=== PATIENT | male | born 1945 | race Caucasian/White ===

== ENCOUNTER 2020-04-15 11:53 | Outpatient (CLI) | payer MEDICARE, SELFPAY ==
--- NOTE | ~2020-04-15 | XR_ITS ---
EXAMINATION: XR shoulder LT min 2V DATE: 04/15/2020 12:18 INDICATION: Shoulder pain. TECHNIQUE: 5 views of left shoulder were obtained. COMPARISON: None. FINDINGS: Bone alignment is normal. No fracture. Glenohumeral joint is normal. There is moderate oste oarthritis of acromioclavicular joint. A pacer is noted. IMPRESSION: 1. Moderate osteoarthritis of acromioclavicular joint. Reviewed, dictated and finalized at location A. N AND BOMB INVESTIGATOR
--- NOTE | ~2020-04-15 | XR_ITS ---
EXAMINATION: XR_CERV2-3V_CR EXAM DATE: 04/15/2020 12:18 INDICATION: Right shoulder pain. TECHNIQUE: Cervical spine frontal, lateral, lateral swimmers, and open-mouth odontoid projections. There is no prior study for comparison. FINDINGS: The odontoid process is intact. The lateral masses of C1 line up with C2. There are no acu te fractures identified. There is moderate disc disease at C5-6 and 6-7, mild at the upper cervical levels. Prevertebral soft tissue and pre-dens space are within normal limits. There is at least moderate cervical facet arthropathy and lower cervical uncovertebral joint arthropa thy causing some amount of neural foraminal stenosis. Given that patient has a pacemaker, a CT scan c ould better quantify amount of neural foraminal stenosis if indicated clinically. IMPRESSION: Moderate lower cervical disc disease and at least moderate arthropathy. Reviewed, dictated and finalized at location A. TECHNOLOGY TECHNICIAN IMPRESSION: Moderate lower cervical disc disease and at least moderate arthropa thy.
--- NOTE | ~2020-04-15 | XR_ITS ---
EXAMINATION: XR shoulder RT min 2V DATE: 04/15/2020 12:18 INDICATION: Right shoulder pain. TECHNIQUE: 4 views of right shoulder were obtained. COMPARISON: None. FINDINGS: Bone alignment is normal. No fracture. Glenohumeral joint is normal. There is moderate acro mioclavicular joint osteoarthritis. IMPRESSION: 1. Moderate right acromioclavicular joint osteoarthritis. Reviewed, dictated and finalized at location A. BOX CHECKER
== END 2020-04-15 11:54 | disposition home or self-care (01) ==
LOC: ANHIMG 11:58
PROVIDERS: PCP Internal Medicine; Visit Provider Internal Medicine
DX: G89.29 Other chronic pain (principal); M25.511 Pain in right shoulder; M25.512 Pain in left shoulder; M50.90 Cervical disc disorder, unspecified, unspecified cervical region; M47.812 Spondylosis without myelopathy or radiculopathy, cervical region; M19.012 Primary osteoarthritis, left shoulder; M19.011 Primary osteoarthritis, right shoulder
CPT/HCPCS: 72040; 73030

== ENCOUNTER 2020-06-17 12:09 | Outpatient (CLI) | payer MEDICARE, SELFPAY ==
[2020-06-17 12:34] LABS: Anion Gap 7 mmol/L (8-16); Blood Urea Nitrogen 24 mg/dL (9-20); Calcium 9.7 mg/dL (8.4-10.2); Carbon Dioxide 26 mmol/L (22-30); Chloride 107 mmol/L (98-107); Estimated Glomerular Filt Rate 40; Glucose 95 mg/dL (75-110); Potassium 4.6 mmol/L (3.4-5.0); Sodium 140 mmol/L (137-145)
[2020-06-17 12:42] LABS: NT Pro B Type Natriuretic Pept 1050 pg/mL (5-100)
== END 2020-06-17 12:10 | disposition home or self-care (01) ==
LOC: ANHLAB 12:12
PROVIDERS: PCP Internal Medicine; Visit Provider Internal Medicine
DX: I11.0 Hypertensive heart disease with heart failure (principal); I50.9 Heart failure, unspecified
CPT/HCPCS: 36415; 80048; 83880

== ENCOUNTER 2022-04-06 13:17 | Outpatient (CLI) | payer MEDICARE, SELFPAY ==
--- NOTE | 2022-04-06 20:30 | P.PCNPFT_ITS ---
PFT Procedure Performed PFT Procedure Performed Spirometry with Pre/Post Bronchodilator Plethysmography (Lung Vol) Diffusing Cap (DLCO) Flow Vol Loop PFT Interpretation DOS: 04/06/2022 REQUESTING: Dr. Holland REASON FOR TESTING: Dyspnea PULMONARY FUNCTION TESTS Results are reliable and reproducible. Spirometry: Pre bronchodilator FEV1 is 2.92 L, 90% predicted, normal. Pre- bronchodilator FVC is 3.73 L, 86% predicted, normal. Feet FEV1/FVC ratio 78%, normal. After bronchodilator administration there is no change in FEV1 or FVC. Lung volumes: Total lung capacity is 7.51 L, 101% predicted, normal. Residual volume is 3.60 L, 135% predicted, consistent with mild air trapping. RV/TLC is increased 48% consistent with air trapping. Diffusion: DLCO is 22.9, 89% predicted, normal. DLCO/VA is 4.90, 134%, upper limit normal. Flow volume loop: Normal. IMPRESSION: This study shows normal spirometry, no change after bronchodilator, mild air trapping and normal diffusion. Lack of response to bronchodilator should not preclude use if clinically indicated. Ciara Roach MD
== END 2022-04-06 13:18 | disposition home or self-care (01) ==
LOC: ANHPFT 13:18
PROVIDERS: PCP Internal Medicine; Visit Provider Internal Medicine
DX: R06.02 Shortness of breath (principal); R06.00 Dyspnea, unspecified
CPT/HCPCS: 94060; 94726; 94729

== ENCOUNTER 2022-05-24 00:29 | Day surgery (SDC) | payer MEDICARE, SELFPAY ==
[2022-05-07 14:21] VITALS: BMI 29.2
[2022-05-24 08:03] VITALS: BP 125/97; PULSE 72; RESP 18; TEMP 36.1; O2SAT 97; BMI 28.8
[2022-05-24] MEDS: LACTATED RINGERS 1,000 ML 150 ML IV CONT (08:31)
[2022-05-24 08:33] LABS: Glucose Point of Care 136 mg/dl (65-105)
--- NOTE | 2022-05-24 08:44 | PM.HPGS ---
History of Present Illness History of Present Illness Consent: Risks, benefits, and alternatives have been discussed and questions answered. Patient agrees to proceed with procedure. Chief complaint: dyspepsia,other chest pain, eructation Narrative: Brock March is a 76 year old male Presents for EGD. Patient complains of ongoing belching bloating gas burping and chest pain. He denies any dysphagia. Symptoms have been rather persistent. He recently was started on omeprazole. Over the last 6 months has noticed some improvement. His family history is noncontributory. Patient presents today for EGD. Review of Systems Review of Systems: Review of systems noncontributory. 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 Encounter for Medicare annual wellness exam Encounter for routine adult health examination with abnormal findings Encounter for routine adult health examination without abnormal findings Encounter for special screening examination for neoplasm of prostate Follow up Ganglion cyst Gout Hearing loss Heart failure Hyperlipidemia Hypotension Impingement syndrome of right shoulder Indigestion Non-ischemic cardiomyopathy On care home drug therapy MIRIAN on CPAP Poison fab Polycythemia Prostate cancer screening Second degree AV block Shoulder pain, bilateral SOB (shortness of breath) Systolic heart failure Thyroid nodule URI (upper respiratory infection) Vision changes Visual floaters Vitamin D deficiency Family History Family History Mother Diabetes mellitus Father Family history of lung cancer Social History Social History Smoking status: Never smoker Second hand tobacco smoke exposure: No Alcohol intake: never Lack of Transportation: No Lack of Food: Never True Current Housing: I Have Housing Concerned About Future Housing: No Difficulty Paying Gas/Electric Bills: No Difficulty Paying for Meds: No Currently Unemployed: No Education: Associate Degree Difficulty w/ Childcare or Family Care: No Living arrangements: with family Occupation/Education: retired Gender identity (if verbalized by the patient): Male Spiritual care concerns: No Meds Home Medications and Allergies Home Medications Medication Instructions Recorded Confirmed Type allopurinol 300 mg tablet 300 mg PO DAILY #90 tabs 02/20/20 05/24/22 Rx mecobalamin (vitamin B12) 1,000 1,000 mcg sublingual DAILY 04/15/20 05/24/22 History mcg disintegrating tablet,sublingual eplerenone 25 mg tablet 25 mg PO DAILY 10/29/20 05/24/22 History dapagliflozin 10 mg-metformin ER See Rx Instructions .Route 05/21/21 05/24/22 Rx 1,000 mg tablet,extended release .COMPLEX #90 tabs 24hr (Xigduo XR) glimepiride 2 mg tablet See Rx Instructions .Route 01/05/22 05/24/22 Rx .COMPLEX #90 tabs sacubitril 97 mg-valsartan 103 mg 1 tablet PO BID 03/04/22 05/24/22 History tablet (Entresto) atorvastatin 20 mg tablet 20 mg PO DAILY 03/10/22 05/24/22 History cholecalciferol (vitamin D3) 1,250 1,250 mcg PO WEEKLY #4 caps 03/10/22 05/24/22 Rx mcg (50,000 unit) capsule cholecalciferol (vitamin D3) 50 50 mcg PO DAILY 03/10/22 05/24/22 History mcg (2,000 unit) capsule omeprazole 40 mg capsule,delayed 40 mg PO DAILY PRN Indigestion #90 03/18/22 05/24/22 Rx release caps potassium chloride 10 mEq See Rx Instructions .Route 04/01/22 05/24/22 Rx capsule,extend
--- NOTE | 2022-05-24 08:45 | P.PNAN_ITS ---
Anes - Initial Pre Proc Eval Procedure: Operation Date: 05/24/22 09:30 Proposed Procedures p Esophagogastroduodenoscopy - Eugene Estevez MD Date/Time: 05/24/22 08:45 Surgeon: Eugene Estevez MD Pre Op Diagnosis: dysphagia,dyspepsia,other chest pain, eructation Patient Data Age: 76 Gender: M Height: 1.83 m Weight: 96.5 kg Last Vital Signs Temp 97.0 F L 05/24/22 08:03 Pulse 72 05/24/22 08:03 Resp 18 05/24/22 08:03 BP 125/97 H 05/24/22 08:03 Pulse Ox 97 05/24/22 08:03 O2 Del Method Room Air 05/24/22 08:03 Allergies Allergy/AdvReac Type Severity Reaction Status Date / Time Sulfa (Sulfonamide Allergy Unknown Unknown Verified 05/24/22 08:14 Antibiotics) Home Medications Medication Instructions Recorded Confirmed Type allopurinol 300 mg tablet 300 mg PO DAILY #90 tabs 02/20/20 05/24/22 Rx mecobalamin (vitamin B12) 1,000 1,000 mcg sublingual DAILY 04/15/20 05/24/22 History mcg disintegrating tablet,sublingual eplerenone 25 mg tablet 25 mg PO DAILY 10/29/20 05/24/22 History dapagliflozin 10 mg-metformin ER See Rx Instructions .Route 05/21/21 05/24/22 Rx 1,000 mg tablet,extended release .COMPLEX #90 tabs 24hr (Xigduo XR) glimepiride 2 mg tablet See Rx Instructions .Route 01/05/22 05/24/22 Rx .COMPLEX #90 tabs sacubitril 97 mg-valsartan 103 mg 1 tablet PO BID 03/04/22 05/24/22 History tablet (Entresto) atorvastatin 20 mg tablet 20 mg PO DAILY 03/10/22 05/24/22 History cholecalciferol (vitamin D3) 1,250 1,250 mcg PO WEEKLY #4 caps 03/10/22 05/24/22 Rx mcg (50,000 unit) capsule cholecalciferol (vitamin D3) 50 50 mcg PO DAILY 03/10/22 05/24/22 History mcg (2,000 unit) capsule omeprazole 40 mg capsule,delayed 40 mg PO DAILY PRN Indigestion #90 03/18/22 05/24/22 Rx release caps potassium chloride 10 mEq See Rx Instructions .Route 04/01/22 05/24/22 Rx capsule,extended release .COMPLEX #90 caps carvedilol 25 mg tablet See Rx Instructions .Route 04/19/22 05/24/22 Rx .COMPLEX #180 tabs Laboratory Tests 05/24/22 08:26 POC Capillary Glucose 136 mg/dl H mg/dl (65-105) Patient hx anesthesia problems: none Family hx anesthesia problems: none Results Review: All pre-operative results and documents have been reviewed as part of the pre- operative evaluation. 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
[2022-05-24 09:34] VITALS: BP 134/83; PULSE 65; RESP 22; O2SAT 96
[2022-05-24 09:44] VITALS: BP 126/81; PULSE 64; RESP 20; O2SAT 95
[2022-05-24 09:54] VITALS: BP 148/95; PULSE 60; RESP 22; O2SAT 95
== END 2022-05-24 10:02 | disposition home or self-care (01) ==
PROVIDERS: PCP Internal Medicine; Visit Provider Internal Medicine Gastroenterology
PROC: 0DJ08ZZ Inspection of Upper Intestinal Tract, Via Natural or Artificial Opening Endoscopic (ICD-10-PCS; CPT 43235; principal; 2022-05-24 09:30)
DX: C7A.092 Malignant carcinoid tumor of the stomach (principal); I13.0 Hypertensive heart and chronic kidney disease with heart failure and stage 1 through stage 4 chronic kidney disease, or unspecified chronic kidney disease; I50.20 Unspecified systolic (congestive) heart failure; E11.22 Type 2 diabetes mellitus with diabetic chronic kidney disease; N18.9 Chronic kidney disease, unspecified; I25.10 Atherosclerotic heart disease of native coronary artery without angina pectoris; H35.30 Unspecified macular degeneration; M10.9 Gout, unspecified; I42.8 Other cardiomyopathies; E78.5 Hyperlipidemia, unspecified; G47.33 Obstructive sleep apnea (adult) (pediatric); I44.1 Atrioventricular block, second degree; E55.9 Vitamin D deficiency, unspecified; Z79.84 Long term (current) use of oral hypoglycemic drugs; Z95.0 Presence of cardiac pacemaker; E66.9 Obesity, unspecified; Z68.28 Body mass index [BMI] 28.0-28.9, adult
CPT/HCPCS: 43239; 82948; 87081; 88305; 88342; J2704; J7120

== ENCOUNTER 2022-06-29 10:14 | Outpatient (CLI) | payer MEDICARE, SELFPAY ==
[2022-06-29 10:30] LABS: Basophils Percent Auto 0.4 % (0.2-1.2); Eosinophils Absolute Auto 0.2 K/mm3 (0-0.3); Eosinophils Percent Auto 1.6 % (0-4.4); Hematocrit 53.5 % (42.0-52.0); Hemoglobin 17.5 g/dL (14.0-18.0); Immature Granulocyte Absolute 0.03 K/mm3 (0.00-0.031); Immature Granulocyte Percent A 0.3 % (0-0.5); Lymphocytes Absolute Auto 1.48 K/mm3 (0.9-3.2); Lymphocytes Percent Auto 15.4 % (18.3-44.2); Mean Corpuscular HGB Conc 32.7 g/dl (32-36); Mean Corpuscular Volume 94.9 fl (80-100); Mean Platelet Volume 10.8 fl (7.4-10.4); Monocytes Absolute Auto 0.8 K/mm3 (0.1-0.6); Neutrophils Absolute Auto 7.1 K/mm3 (1.3-6.7); Neutrophils Percent Auto 74.3 % (45.5-73.1); Platelet Count Result 179 k/mm3 (150-375); Red Blood Count 5.64 M/mm3 (4.6-6.20); Red Cell Distribution Width 14.2 % (11.5-14.5); White Blood Count 9.6 K/mm3 (4.5-10.0)
[2022-06-29 12:12] LABS: Alanine Aminotransferase 35 U/L (6-50); Albumin Level 4.2 g/dL (3.5-5.1); Alkaline Phosphatase 55 U/L (38-126); Anion Gap 10 mmol/L (8-16); Aspartate Amino Transferase 39 U/L (17-59); Bilirubin,Total 0.9 mg/dL (0.2-1.3); Blood Urea Nitrogen 18 mg/dL (9-20); Calcium 9.3 mg/dL (8.4-10.2); Carbon Dioxide 28 mmol/L (22-30); Chloride 104 mmol/L (98-107); Estimated Glomerular Filt Rate 49; Glucose 161 mg/dL (65-110); Potassium 3.7 mmol/L (3.4-5.0); Sodium 142 mmol/L (137-145)
[2022-07-09 16:39] LABS: Serotonin 48 ng/mL (56-244)
== END 2022-06-29 10:15 | disposition home or self-care (01) ==
LOC: ANHLAB 10:16
PROVIDERS: PCP Internal Medicine; Visit Provider Internal Medicine Hematology & Oncology
DX: D3A.8 Other benign neuroendocrine tumors (principal)
CPT/HCPCS: 36415; 80053; 84260; 85025; 86316

== ENCOUNTER 2023-06-20 08:22 | Outpatient (CLI) | payer MEDICARE, SELFPAY ==
--- NOTE | ~2023-06-20 | CT_ITS ---
EXAMINATION: CT abdomen pelvis w con DATE: 06/20/2023 08:56 INDICATION: Neuroendocrine tumor. TECHNIQUE: Computed tomography (CT) of the abdomen and pelvis was performed with 100 mL Omnipaque 350 intravenous contrast. Automated exposure control and iterative reconstruction technique were employe d. The dose-length product was 1158.93 mGy-cm. COMPARISON: None. FINDINGS: The visualized portions of the lung bases demonstrate mild atelectasis. No pleural effusion . The heart size is normal. There are coronary artery calcifications. No pericardial effusion. There are pacer wires in the right atrium, right ventricle, and coronary sinus. There are cysts in the live r measuring up to 14 mm. Calcifications in the liver and spleen are consistent with old granulomatous disease. The gallbladder is normal in size. The pancreas is normal. There are masses in the adrenal glands can thinning fat measuring up to 5.7 cm on the left, consistent with myelolipomas. There is co rtical thinning of the kidneys. There are cysts in the kidneys measuring up to 9.3 cm on the right. T here is a 1.7 cm mass in right kidney measuring soft tissue attenuation. There are 3 stones in left k idney measuring up to 6 mm. There is calcified atherosclerosis of the aorta and many of the other art eries. 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 There is a left inguinal hernia conta ining fat. The prostate is moderately enlarged. There are no dilated loops of bowel. The appendix is not visualized. There are no pathologically enlarged lymph nodes. There is no free intraperitoneal fl uid. There are bridging endplate osteophytes at multiple levels in the spine, consistent with diffuse idiopathic skeletal hyperostosis (DISH). There is mild lumbar spondylosis. IMPRESSION: 1. 1.7 cm right kidney mass, which may be a hemorrhagic cyst or less likely renal cell carcinoma. Abd omen CT without and with contrast is recommended. 2. 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 Reviewed, dictated and finalized at location A. IMPRESSION: 1. 1.7 cm right kidney mass, which may be a hemorrhagic cyst or less likely gracia al cell carcinoma. Abdomen CT without and with contrast is recommended. 2. 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
[2023-06-20 08:48] LABS: Estimated Glomerular Filt Rate 39
== END 2023-06-20 08:23 | disposition home or self-care (01) ==
PROVIDERS: PCP Internal Medicine; Visit Provider Internal Medicine Hematology & Oncology
DX: D3A.8 Other benign neuroendocrine tumors (principal)
CPT/HCPCS: 74177; Q9967

== ENCOUNTER 2023-11-30 10:50 | Outpatient (CLI) | payer MEDICARE, SELFPAY ==
--- NOTE | ~2023-11-30 | XR_ITS ---
XR abdomen obstructive series Ordering provider: Ralph Holland MD History: . CONSTIPATION X 1 WK . Comparison: None. FINDINGS: BOWEL: Nonobstructive bowel gas pattern. ORGANOMEGALY: None. SIGNIFICANT PATHOLOGIC CALCIFICATIONS: None. OTHER: No free air is seen under the diaphragm. Bilateral hip osteoarthritic changes. Degenerative spine. IMPRESSION: NO ACUTE ABDOMINAL FINDINGS. Reviewed, dictated and finalized at location A.
== END 2023-11-30 10:51 | disposition home or self-care (01) ==
LOC: ANHIMG 10:53
PROVIDERS: PCP Internal Medicine; Visit Provider Internal Medicine
DX: R10.9 Unspecified abdominal pain (principal); K59.00 Constipation, unspecified
CPT/HCPCS: 74019

== ENCOUNTER 2023-12-26 08:27 | Outpatient (CLI) | payer MEDICARE, SELFPAY ==
--- NOTE | ~2023-12-26 | CT_ITS ---
EXAMINATION: CT abdomen pelvis w con DATE: 12/26/2023 09:01 INDICATION: Neuroendocrine tumor. TECHNIQUE: Computed tomography (CT) of the abdomen and pelvis was performed with 100 mL Omnipaque 350 intravenous contrast. Automated exposure control and iterative reconstruction technique were employe d. The dose-length product was 1145.34 mGy-cm. COMPARISON: CT abdomen and pelvis 06/20/2023 FINDINGS: The visualized portions of the lung bases demonstrate mild atelectasis. A calcified right l sarika nodule is consistent with old granulomatous disease. No pleural effusion. The heart size is lucio l. There are coronary artery calcifications. No pericardial effusion. There are pacer wires in right atrium, right ventricle, and coronary sinus. There are cysts in the liver measuring up to 13 mm. Calc ifications in the liver and spleen are consistent with old granulomas disease. There is cortical thin geena of the kidneys. There are cysts in the kidneys measuring up to 9.5 cm on the right. There is a 1 .7 cm mass of right kidney lower pole measuring soft tissue attenuation. There are 5 mm and 4 mm ston es in left kidney. The prostate is moderately enlarged. There is a left inguinal hernia containing fa t. There are likely changes of right inguinal hernia repair. There are no dilated loops of bowel. The re is a stable 4.0 cm fusiform aneurysm of infrarenal aorta. There are no pathologically enlarged lym ph nodes. There is no free intraperitoneal fluid. There are bridging endplate osteophytes at multiple levels in the spine, consistent with diffuse idiopathic skeletal hyperostosis (DISH). There are a fe w scattered benign bone islands. There is moderate lumbar spondylosis. IMPRESSION: 1. Stable 1.7 cm right kidney mass, which may be a hemorrhagic cyst or less likely renal cell carcino ma. Abdomen CT without and with contrast is recommended. 2. Stable 4.0 cm fusiform aneurysm of infrarenal aorta. Reviewed, dictated and finalized at location A. CTOR OF SOCIAL SERVICES IMPRESSION: 1. Stable 1.7 cm right kidney mass, which may be a hemorrhagic cyst or less lik caden renal cell carcinoma. Abdomen CT without and with contrast is recommended. 2. Stable 4.0 cm fusiform aneurysm of infrarenal aorta.
[2023-12-26 08:52] LABS: Estimated Glomerular Filt Rate 31
== END 2023-12-26 08:28 | disposition home or self-care (01) ==
PROVIDERS: PCP Internal Medicine; Visit Provider Internal Medicine Hematology & Oncology
DX: D3A.8 Other benign neuroendocrine tumors (principal); I71.43 Infrarenal abdominal aortic aneurysm, without rupture
CPT/HCPCS: 74177; Q9967

== ENCOUNTER 2023-12-30 09:45 | Outpatient (CLI) | payer MEDICARE, SELFPAY ==
[2023-12-30 10:04] LABS: Basophils Percent Auto 0.4 % (0.2-1.2); Eosinophils Absolute Auto 0.2 K/mm3 (0-0.3); Eosinophils Percent Auto 2.6 % (0-4.4); Hematocrit 52.5 % (42.0-52.0); Hemoglobin 17.2 g/dL (14.0-18.0); Immature Granulocyte Absolute 0.01 K/mm3 (0.00-0.031); Immature Granulocyte Percent A 0.1 % (0-0.5); Immature Platelet Fraction Pct 6.7 % (0.9-11.2); Lymphocytes Percent Auto 21.5 % (18.3-44.2); Mean Corpuscular HGB Conc 32.8 g/dl (32-36); Mean Corpuscular Hemoglobin 31.1 pg (26-34); Mean Corpuscular Volume 94.9 fl (80-100); Mean Platelet Volume 10.9 fl (7.4-10.4); Monocytes Absolute Auto 0.6 K/mm3 (0.1-0.6); Monocytes Percent Auto 7.8 % (2.6-8.5); Neutrophils Percent Auto 67.6 % (45.5-73.1); Platelet Count Result 137 k/mm3 (150-375); Red Blood Count 5.53 M/mm3 (4.6-6.20); Red Cell Distribution Width 13.3 % (11.5-14.5); White Blood Count 7.4 K/mm3 (4.5-10.0)
[2023-12-30 14:05] LABS: Alanine Aminotransferase 26 U/L (6-50); Albumin Level 3.9 g/dL (3.5-5.1); Alkaline Phosphatase 63 U/L (38-126); Anion Gap 8 mmol/L (4-12); Aspartate Amino Transferase 33 U/L (17-59); Bilirubin,Total 0.8 mg/dL (0.2-1.3); Blood Urea Nitrogen 13 mg/dL (9-20); Carbon Dioxide 26 mmol/L (22-30); Chloride 103 mmol/L (98-107); Estimated Glomerular Filt Rate 42; Glucose 104 mg/dL (65-110); Potassium 4.4 mmol/L (3.4-5.0); Sodium 137 mmol/L (137-145)
[2024-01-03 19:09] LABS: Serotonin 68 ng/mL (56-244)
== END 2023-12-30 09:46 | disposition home or self-care (01) ==
LOC: ANHLAB 09:46
PROVIDERS: PCP Internal Medicine; Visit Provider Internal Medicine Hematology & Oncology
DX: D3A.8 Other benign neuroendocrine tumors (principal)
CPT/HCPCS: 36415; 80053; 84260; 85025; 85055

== ENCOUNTER 2024-01-31 01:36 | Day surgery (SDC) | payer MEDICARE, SELFPAY ==
[2024-01-20 09:13] VITALS: BMI 28.8
[2024-01-31 09:49] VITALS: BP 134/80; PULSE 70; RESP 16; TEMP 36.3; O2SAT 96
--- NOTE | 2024-01-31 09:52 | WPDANESEPPF ---
Anes - Initial Pre Proc Eval Procedure: Operation Date: 01/31/24 11:00 Proposed Procedures p Colonoscopy - Rogelio Strickland MD Date/Time: 01/31/24 09:52 Surgeon: Rogelio Strickland MD Pre Op Diagnosis: Personal hx. colon polyps Patient Data Age: 78 Gender: M Height: 1.83 m Weight: 92.6 kg Last Vital Signs Temp 36.3 C L 01/31/24 09:49 Pulse 70 01/31/24 09:49 Resp 16 01/31/24 09:49 BP 134/80 01/31/24 09:49 Pulse Ox 96 01/31/24 09:49 O2 Del Method Room Air 01/31/24 09:49 Allergies Allergy/AdvReac Type Severity Reaction Status Date / Time Sulfa (Sulfonamide Allergy Unknown Unknown Verified 01/31/24 09:45 Antibiotics) Home Medications ?Medication ?Instructions ?Recorded ?Confirmed ?Type mecobalamin (vitamin B12) 1,000 1,000 mcg sublingual DAILY 04/15/20 01/20/24 History mcg disintegrating tablet,sublingual eplerenone 25 mg tablet 25 mg PO DAILY 10/29/20 01/31/24 History sacubitril 97 mg-valsartan 103 mg 1 tablet PO BID 03/04/22 01/31/24 History tablet (Entresto) cholecalciferol (vitamin D3) 50 50 mcg PO DAILY 03/10/22 01/20/24 History mcg (2,000 unit) capsule omeprazole 40 mg capsule,delayed 40 mg PO DAILY PRN Indigestion #90 04/26/23 01/31/24 Rx release caps carvedilol 25 mg tablet 75 mg (3 x 25 mg) .Route .COMPLEX 07/07/23 01/31/24 Rx #180 tabs solifenacin 10 mg tablet 10 mg PO DAILY 08/25/23 01/31/24 History vericiguat 2.5 mg tablet (Verquvo) 2.5 mg PO DAILY 08/25/23 01/31/24 History potassium chloride 10 mEq See Rx Instructions .Route 10/11/23 01/31/24 Rx capsule,extended release .COMPLEX #90 caps dapagliflozin propaned 10 See Rx Instructions .Route 11/22/23 01/31/24 Rx mg-metformin ER 1,000 mg .COMPLEX #90 tabs tablet,ext rel 24hr (Xigduo XR) atorvastatin 20 mg tablet 20 mg PO DAILY #90 tabs 01/10/24 01/31/24 Rx glimepiride 2 mg tablet See Rx Instructions .Route 01/10/24 01/31/24 Rx .COMPLEX #90 tabs Patient hx anesthesia problems: none Family hx anesthesia problems: none Results Review: All pre-operative results and documents have been reviewed as part of the pre-operative evaluation. 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 CHF (congestive heart failure) Encounter for Medicare annual wellness exam Visual floaters Vision changes Hearing loss Systolic heart failure ASHD (arteriosclerotic heart disease) Non-ischemic cardiomyopathy Prostate cancer screening MIGUEL (dyspnea on exertion) SOB (shortness of breath) Heart failure Hypotension Shoulder pain, bilateral Gout Encounter for special screening examination for neoplasm of prostate Bilateral hearing loss Follow up Thyroid nodule CKD (chronic kidney disease) Second degree AV block Cardiac pacemaker in situ BMI 29.0-29.9,adult Elevated homocysteine Hyperlipidemia URI (upper respiratory infection) DM type 2 (diabetes mellitus, type 2) BMI 28.0-28.9,adult Encounter for routine adult health examination without abnormal findings On termite exterminator drug therapy MIRIAN on CPAP Benign essential hypertension Vitamin D deficiency Family History Family History Mother Diabetes mellitus Father Family history of lung cancer Social History Social History Smoking status: Never smoker Smokeless tobacco user: chewing tobacco Second hand tobacco smoke exposure: No Alcohol intake: never Substance use type: does not use Lack of Transportation: No Lack of Food: Never True Current Housing: I Have Housing Concerned About Future Housing: No Difficulty Paying Gas/Electric Bills: No Difficulty Paying for Meds: No Currently Unemployed: No Education: Associate Degree Difficulty w/ Childcare or Family Care: No Living arrangements: with family Occupation/Education: retired Gender identity (if verbalized by the patient): Male Spiritual care concerns: No Anes - Eval Final PreProcedure Day of Procedure 01/31/24 09:52 Patient weight: overweight Heart: regular rate and rhythm Lungs: clear to auscultation Airway: Mallampati scale class II Neurological: alert and oriented Last oral intake: >/= 8 hours ASA classification: IV Emergent: no Anesthetic plan: proceed Anesthesia type and monitoring: general GIVS and standard monitoring Results Review: All pre-operative results and documents have been reviewed as part of the pre-operative evaluation. Informed Consent: The patient's anesthetic plan and its attendant risks and benefits were discussed with the patient/family/POA. Questions were solicited and answers provided to the satisfaction of the patient/family/POA.
[2024-01-31] MEDS: LACTATED RINGERS 1,000 ML 150 ML IV CONT (10:02)
[2024-01-31 10:03] LABS: Glucose Point of Care 86 mg/dl (65-105)
--- NOTE | 2024-01-31 10:20 | PM.HPGS ---
History of Present Illness History of Present Illness Consent: Risks, benefits, and alternatives have been discussed and questions answered. Patient agrees to proceed with procedure. Chief complaint: Personal hx. 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 Review of Systems Review of Systems: All systems reviewed & are unremarkable except as noted in HPI and below PMFSH Past Medical History Medical History Occult blood in stools Hx of colonic polyps Renal cyst Infrarenal abdominal aortic aneurysm (AAA) without rupture Urinary incontinence Dizziness Indigestion Encounter for routine adult health examination with abnormal findings Polycythemia Poison fab Impingement syndrome of right shoulder Ganglion cyst Abnormal stress test Abnormal EKG Callus of foot 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 CHF (congestive heart failure) Encounter for Medicare annual wellness exam Visual floaters Vision changes Hearing loss Systolic heart failure ASHD (arteriosclerotic heart disease) Non-ischemic cardiomyopathy Prostate cancer screening MIGUEL (dyspnea on exertion) SOB (shortness of breath) Heart failure Hypotension Shoulder pain, bilateral Gout Encounter for special screening examination for neoplasm of prostate Bilateral hearing loss Follow up Thyroid nodule CKD (chronic kidney disease) Second degree AV block Cardiac pacemaker in situ BMI 29.0-29.9,adult Elevated homocysteine Hyperlipidemia URI (upper respiratory infection) DM type 2 (diabetes mellitus, type 2) BMI 28.0-28.9,adult Encounter for routine adult health examination without abnormal findings On intermediate card tender drug therapy MIRIAN on CPAP Benign essential hypertension Vitamin D deficiency Family History Family History Mother Diabetes mellitus Father Family history of lung cancer Social History Social History Smoking status: Never smoker Smokeless tobacco user: chewing tobacco Second hand tobacco smoke exposure: No Alcohol intake: never Substance use type: does not use Lack of Transportation: No Lack of Food: Never True Current Housing: I Have Housing Concerned About Future Housing: No Difficulty Paying Gas/Electric Bills: No Difficulty Paying for Meds: No Currently Unemployed: No Education: Associate Degree Difficulty w/ Childcare or Family Care: No Living arrangements: with family Occupation/Education: retired Gender identity (if verbalized by the patient): Male Spiritual care concerns: No Meds Home Medications and Allergies Home Medications ?Medication ?Instructions ?Recorded ?Confirmed ?Type mecobalamin (vitamin B12) 1,000 1,000 mcg sublingual DAILY 04/15/20 01/20/24 History mcg disintegrating tablet,sublingual eplerenone 25 mg tablet 25 mg PO DAILY 10/29/20 01/31/24 History sacubitril 97 mg-valsartan 103 mg 1 tablet PO BID 03/04/22 01/31/24 History tablet (Entresto) cholecalciferol (vitamin D3) 50 50 mcg PO DAILY 03/10/22 01/20/24 History mcg (2,000 unit) capsule omeprazole 40 mg capsule,delayed 40 mg PO DAILY PRN Indigestion #90 04/26/23 01/31/24 Rx release caps carvedilol 25 mg tablet 75 mg (3 x 25 mg) .Route .COMPLEX 07/07/23 01/31/24 Rx #180 tabs solifenacin 10 mg tablet 10 mg PO DAILY 08/25/23 01/31/24 History vericiguat 2.5 mg tablet (Verquvo) 2.5 mg PO DAILY 08/25/23 01/31/24 History potassium chloride 10 mEq See Rx Instructions .Route 10/11/23 01/31/24 Rx capsule,extended release .COMPLEX #90 caps dapagliflozin propaned 10 See Rx Instructions .Route 11/22/23 01/31/24 Rx mg-metformin ER 1,000 mg .COMPLEX #90 tabs tablet,ext rel 24hr (Xigduo XR) atorvastatin 20 mg tablet 20 mg PO DAILY #90 tabs 01/10/24 01/31/24 Rx glimepiride 2 mg tablet See Rx Instructions .Route 01/10/24 01/31/24 Rx .COMPLEX #90 tabs Allergies Allergy/AdvReac Type Severity Reaction Status Date / Time Sulfa (Sulfonamide Allergy Unknown Unknown Verified 01/31/24 09:45 Antibiotics) Vital Signs Vital Signs - 24 hr 01/31/24 09:49 Temperature 97.3 F L Pulse Rate 70 Respiratory Rate 16 Blood Pressure 134/80 Pulse Oximetry 96 Oxygen Delivery Room Air Exam Const: General: comfortable and no acute distress HENMT: Face/Nose/Sinus: Normal nares present Eyes: General: appearance normal, both eyes and all related structures Neck: Neck: no JVD Resp: Auscultation: clear to auscultation bilaterally Cardio: Rate: regular rate Rhythm: regular rhythm GI: Inspection: non-distended GI Palp: Yes Soft to palpation Skin: General skin exam: normal color Neuro: General: gait normal Speech: normal speech Extrem: General: normal to inspection Psych: Mental Status: mental status grossly normal Assessment and Plan Assessment and plan (1) Hx of colonic polyps: Code(s): Z86.010 - Personal history of colon polyps Status: Acute Assessment and Plan: colonoscopy (2) Occult blood in stools: Code(s): R19.5 - Other fecal abnormalities Status: Acute
[2024-01-31 10:34] VITALS: BP 131/81; PULSE 70; RESP 25; O2SAT 94
[2024-01-31 10:42] VITALS: BP 133/79; PULSE 70; RESP 20; O2SAT 95
[2024-01-31 10:52] VITALS: BP 134/80; PULSE 70; RESP 19; O2SAT 98
== END 2024-01-31 11:15 | disposition home or self-care (01) ==
PROVIDERS: PCP Internal Medicine; Visit Provider Internal Medicine Gastroenterology
PROC: 0DJD8ZZ Inspection of Lower Intestinal Tract, Via Natural or Artificial Opening Endoscopic (ICD-10-PCS; CPT 45378; principal; 2024-01-31 11:00)
DX: D12.2 Benign neoplasm of ascending colon (principal); D12.3 Benign neoplasm of transverse colon; D12.5 Benign neoplasm of sigmoid colon; K64.4 Residual hemorrhoidal skin tags; K64.8 Other hemorrhoids; E78.5 Hyperlipidemia, unspecified; E11.22 Type 2 diabetes mellitus with diabetic chronic kidney disease; I12.9 Hypertensive chronic kidney disease with stage 1 through stage 4 chronic kidney disease, or unspecified chronic kidney disease; N18.9 Chronic kidney disease, unspecified; E55.9 Vitamin D deficiency, unspecified; R32 Unspecified urinary incontinence; D75.1 Secondary polycythemia; I50.20 Unspecified systolic (congestive) heart failure; I25.10 Atherosclerotic heart disease of native coronary artery without angina pectoris; I42.8 Other cardiomyopathies; I44.1 Atrioventricular block, second degree; I95.9 Hypotension, unspecified; G47.33 Obstructive sleep apnea (adult) (pediatric); F17.220 Nicotine dependence, chewing tobacco, uncomplicated; Z79.899 Other long term (current) drug therapy; Z79.84 Long term (current) use of oral hypoglycemic drugs; Z99.89 Dependence on other enabling machines and devices; Z98.890 Other specified postprocedural states; Z95.0 Presence of cardiac pacemaker; Z80.1 Family history of malignant neoplasm of trachea, bronchus and lung
CPT/HCPCS: 45385; 82948; 88305; J2704; J7120

== ENCOUNTER 2024-04-10 09:36 | Outpatient (CLI) | payer MEDICARE, SELFPAY ==
[2024-04-10 09:57] LABS: Basophils Percent Auto 0.4 % (0.2-1.2); Eosinophils Absolute Auto 0.1 K/mm3 (0-0.3); Eosinophils Percent Auto 1.4 % (0-4.4); Hematocrit 52.4 % (42.0-52.0); Hemoglobin 17.2 g/dL (14.0-18.0); Immature Granulocyte Absolute 0.03 K/mm3 (0.00-0.031); Immature Granulocyte Percent A 0.3 % (0-0.5); Lymphocytes Absolute Auto 1.48 K/mm3 (0.9-3.2); Lymphocytes Percent Auto 16.5 % (18.3-44.2); Mean Corpuscular HGB Conc 32.8 g/dl (32-36); Mean Corpuscular Hemoglobin 30.8 pg (26-34); Mean Corpuscular Volume 93.9 fl (80-100); Mean Platelet Volume 10.5 fl (7.4-10.4); Monocytes Absolute Auto 0.8 K/mm3 (0.1-0.6); Monocytes Percent Auto 8.6 % (2.6-8.5); Neutrophils Absolute Auto 6.5 K/mm3 (1.3-6.7); Neutrophils Percent Auto 72.8 % (45.5-73.1); Platelet Count Result 153 k/mm3 (150-375); Red Blood Count 5.58 M/mm3 (4.6-6.20); Red Cell Distribution Width 13.5 % (11.5-14.5)
--- OUTSIDE RECORDS SUMMARY | 2024-04-10 10:42 | XMS_ITS | Clinical Summary ---
Author Organization [facility] Address [address] [place] [address] Care Team Providers Care Adult Family Home Program Manager Name Role Phone Ralph Holland MD Primary Care Provider [phone] Miscellaneous, Not In File Unavailable Unava ilable Allergies Active Allergy Reactions Criticality Noted Date Comments Sulfa (Sulfonamide Antibiotics) Fever Medium 12/08/2021 Patient states he has fever, chills and sweating with sulfa drugs Sulfasalazine Other (See comments) Low 08/29/2015 Fever and hot flashes Medications allopurinol (ZYLOPRIM) 300 mg tablet Take 1 tablet (300 mg total) by mouth daily 5 8 Active POTASSIUM CHLORIDE ER 10 mEq CR capsule Take 1 tablet/capsule (10 mEq total) by mouth daily 0 8 Active glimepiride (AMARYL) 2 mg tablet Take 1 tablet (2 mg total) by mouth daily before breakfast 0 9 Active cholecalciferol (VITAMIN D-3) 25 mcg (1,000 unit) tablet Take 2 tablets (2,000 Units total) by mouth daily Active cyanocobalamin (Vitamin B-12) 1,000 mcg tabletIndicatio ns:Prevention of Vitamin B12 Deficiency Take 1 tablet (1,000 mcg total) by mouth daily Active vnvxc-2-ppf-epa -dpa-fish oil 1,050-1,200 mg capsule 1 capsule Active omeprazole (PriLOSEC) 40 mg capsule Take 1 capsule (40 mg total) by mouth daily as needed Active traZODone (DESYREL) 50 mg tablet Take 1 tablet (50 mg total) by mouth nightly as needed Active atorvastatin (LIPITOR) 40 mg tablet TAKE 1 TABLET(40 MG) BY MOUTH DAILY 30 tablet 11 2 Active Xigduo XR 10-1,000 mg tablet, IR & ER, biphasic 24hr Take 1 tablet by mouth daily 2 Active carvediloL (COREG) 25 mg tablet Take 1.5 tablets (37.5 mg total) by mouth 2 (two) times a day with meals 270 tablet 3 4 06/21/19 25 Active Entresto 97-103 mg tablet TAKE 1 TABLET BY MOUTH TWICE DAILY 180 tablet 5 4 Active solifenacin (VESIcare) 10 mg tablet Take 1 tablet (10 mg total) by mouth daily 4 Active Verquvo 2.5 mg tablet TAKE 1 TABLET(2.5 MG) BY MOUTH DAILY 30 tablet 3 4 Active eplerenone (INSPRA) 25 mg tablet TAKE 1 TABLET(25 MG) BY MOUTH DAILY 90 tablet 2 4 Active Active Problems Problem Noted Date Diagnosed Date ICD (implantable cardioverte r-defibrillator), biventricular, in situ 08/19/2020 Overview (12/20/2022): Cohn [place] BI-V ICD imp on 08/19/20 for NICM. (Lenard Leong. Scooter Trujillo. [facility]. BIO RA Lead Solia [id number] 06/19/19 SJM RV Lead [id number] SJM LV Lead [id number] 08/19/20 Cardiomyopathy 08/19/2020 Chronic systolic congestive heart failure (CMS/H CC) 05/01/2020 Overview (05/01/2020): Moderate on echo 07 December 2019. Assessment & Plan (05/01/2020 1:58 PM CDT): We discussed echo findings from last year. Already on Coreg and ARB. We talked about adding GRADY-inhibitor or Entresto but apparently he has chronic renal insufficiency with a serum creatinine of 1.9.. Thus, I will not make changes in that regard. I will add spironolactone 25 mg p.o. daily. A BMP in 1 week. I advised him to follow-up with teacher of family and consumer science. We discussed life vest and he is agreeable. Pacemaker 11/28/2019 Cardiomyopathy, idiopathic 05/23/2019 Essential hypertension 05/23/2019 MIRIAN on CPAP 05/23/2019 Chest discomfort 05/23/2019 Bradycardia 05/23/2019 Overview (06/21/2019): With heart rate down to the 20s and 30s with 4 second pause. Monitoring also showed second-degree AV block type 1, second-degree AV block type 2 and a brief episode of complete heart block. Status post Biotronik Edora 8 DRT on 19 Jun 2019. Assessment & Plan (05/01/2020 1:57 PM CDT): We discussed today's pacemaker rep check. He is pacing in the mid to high 90s. May require upgrade to biventricular ICD in the near future. Otherwise numbers good with a chronically high ventricular threshold. This is stable. Assessment & Plan (06/26/2019 11:27 AM CDT): Patient feels fine since pacemaker implantation. No fever. No wound drainage. Not much pain in the pocket site. I advised that he follows up with Dr. Weathers in November 2019 as already scheduled. Primary osteoarthritis of right knee 04/14/2017 Encounters Date Type Department Care Team Description 03/11/2024 7:15 AM METAL TEMPERER Ancillary Procedure [facility]ia [facility] [address] [address] ICD (implantable cardioverter-defibril lator), biventricular, in situ (Primary Dx); NICM (nonischemic cardiomyopathy) (CMS/HCC) (HCC) from Last 3 Months Immunizations Immunization Administration Dates Next Due Influenza, Quadrivalent, Hig h Dose, Preservative Free, Intrr 12/02/2020,01/02/2020 Influenza, Trivalent, High D ose, Split, Preservative Free, Intramuscular 12/08/2018 Pfizer SARS-CoV-2 Monovalent Vaccination (12+ Yrs) PURPLE 05/04/2020,04/13/2020 Surgical History Surgery Date Site/Laterality Comments HERNIA REPAIR THYROIDECTOMY partial CARDIAC PACEMAKER PLACEMENT Biotronik UPPER GASTROINTESTINAL ENDOSCOPY COLONOSCOPY Medical History Medical History Date Comments Hypertension Kidney stone Gout GERD (gastroesophageal reflux disease) Type 2 diabetes mellitus (HCC) Sleep apnea CPAP Cardiomyopathy (HCC) CHF (congestive heart failur e) (CMS/HCC) (HCC) Arrhythmia HX AV block, 2 d egree T 2, Complete Heart Block, s/p pacemaker Personal history of other me dical treatment Life Vest external defibrill ator Colon polyp Neuroendocrine tumor duodenum Heart disease Family History Medical History Relation Name Comments Lung cancer Father Brain Tumor Mother inoperable Cancer Son Diabetes Son Gout Son Hypertension Son Relation Name Status Comments Father (Age 76) Mother (Age 80) Son Social History Tobacco Use Types Packs/Day Years Used Date Smoking Tobacco: Never Smokeless Tobacco: Former Alcohol Use Standard Drinks/Week Comments Yes 0 (1 standard drink = 0.6 oz pur e alcohol) AUDIT-C Answer Date Recorded Q1: How often do you have a drink containing alc ohol? Never 06/15/2022 Average Number of Drinks Not on file 023 Frequency of Binge Drinking Not on file 03/2022 Personal Safety Answer Date Recorded Getting School Help Needed Not on file 06/15 Sex and Gender Information Value Date Recorded Sex Assigned at Not on file Legal Sex Male 11:12 AM METAL TEMPERER Gender Identity Male 08/06/2020 10:27 AM CDT Sexual Orientation Not on file Obstetrics History Last Filed Vital Signs Vital Sign Reading Time Taken Comments Blood Pressure 126/80 10/12/2023 9:50 AM CDT Pulse 70 10/12/2023 9:50 AM CDT Temperature 36 C (96.8 F) 06/15/2022 10:33 AM CDT Respiratory Rate 17 06/15/2022 11:33 AM CDT Oxygen Saturation 96% 10/12/2023 9:50 AM CDT Inhaled Oxygen Concentration - - Weight 98.4 kg (217 lb) 10/12/2023 9:50 AM CDT Height 182.9 cm (6') 10/12/2023 9:50 AM CDT Body Mass Index 29.43 10/12/2023 9:50 AM CDT Plan of Treatment Health Maintenance Due Date Last Done Comments Depression Screening 1945 Hepatitis C Screening 1945 DTaP/Tdap/Td Vaccine (1 - Tdap) 1957 Hepatitis B Screening 1964 Zoster Vaccine (1 of 2) 1996 Well Visit 65+ 06/06/2011 Pneumococcal vaccine 65+ (2 of 2 - PCV) 11/15/2015 11/14/2014 Fall Risk Assessment 06/16/2023 06/15/2022 Covid-19 Vaccine (3 - 2023-2 5 season) 2023 05/04/2020, 04/13/2020 Influenza Vaccine (#1) 2023 , 01/02/2020, 12/08/2018, Additional history exists Medical Devices Implanted Type Area Perforator Device Identifier Shelf Expiration Date Model / Serial / Lot Cohn Vascular [id number] Defib Cardiac [id number] [place] Hf Df4 Is-4 Is-1 Cnctr - [id number] - [id number] Implanted:Qty: 1 on 08/19/2020 by Ildefonso Bridges MD at [facility] ICD Cohn Vascular [id number] 08/13/2022 C [id number] / [id number] / [employer] 7121q/65 Durata Sj4 7fr 65cm 2 Coil True Bipolar Cardioverter - [id number] - [id number] Implanted:Qty: 1 on 08/19/2020 by Ildefonso Bridges MD at [facility] Lead [employer] [id number] 03/16/2021 7121Q/65 / [id number] / [employer] 1458ql/86 Quartet 4.7fr 86cm Quadripolar Is-4 Llll Connector 16 Curve Low - [id number] - [id number] Implanted:Qty: 1 on 08/19/2020 by Ildefonso Bridges MD at [facility] Lead [employer] [id number] 05/15/2023 1458QL/86 / [id number] / Biotronik Inc [id number] Endocardial Pacing Lead Promri Solia T 60 - [id number] Implanted:Qty: 1 on 06/19/2019 by Tanmay Polanco MD at [facility] Biotronik Inc 06/18/2020 [id number] 81 / / Biotronik Inc [id number] Endocardial Pacing Lead Promri Vielkaia Jt 53 - [id number] Implanted:Qty: 1 on 06/19/2019 by Tanmay Polanco MD at [facility] Biotronik Inc 06/18/2020 [id number] 34 / / Medtronic Inc [id number] Tyrx 3.3x2.9in Large Envelope Absorbable Polyarylate Minocycline - [id number] Implanted:Qty: 1 on 06/19/2019 by Tanmay Polanco MD at [facility] Med[employer]onic Inc 12/20/2019 CMRM 6133 / / [employer] Jose [id number] Device Closure Angio-Seal Vip Bondek-Plus Polyglyd L70 Cm Od6 Fr Odsec.035 In Vascular - [id number] Implanted:Qty: 1 on 07/31/2020 by Candelario Trujillo MD at [facility] [id number] / / Explanted Type Area Perforator Device Identifier Shelf Expiration Date Model / Serial / Lot Biotronik Inc [id number] Edora Promri [id number] 1 Chamber Rate Adaptive Unipolar Bipolar - [id number] Implanted:Qty: 1 on 06/19/2019 by Tanmay Polanco MD at [facility] Explanted:Qty: 1 on 08/19/2020 by Ildefonso Bridges MD at [facility] Biotronik Inc 06/18/2020 [id number] / / Procedures Procedure Name Priority Date/Time Associated Diagnosis Comments DEVICE CHECK - REMOTE Routine 03/11/2024 10:07 AM METAL TEMPERER NICM (nonischemic cardiomyopathy) (CMS/HCC) (HCC) from Last 3 Months Results * DEVICE CHECK - REMOTE (03/11/2024 10:07 AM METAL TEMPERER) Anatomical Region Laterality Modality Other Narrative 03/15/2024 7:58 AM METAL TEMPERER Table formatting from the original result was not included. BiV ICD CHECK (REMOTE) Patient ID: Za Villatoro is a 78 y.o. male. This patient received a Cohn BiV ICD. They had a routine remote transmission on 03/11/2024 Device implant indications: Nonischemic dilated cardiomyopathy Interrogation of the patient's device demonstrates the following: Presenting EGM: A paced Bi V paced @ 70 bpm Original Device Settings Right Atrium Right Ventricle Left Ventricle Sensitivity (mV) 0.5 mV Auto mV N/A mV Pacing Outputs 5.0 V @ 1.0 ms 1.5 V @ 0.5 ms 1.5 V @ 1.0 ms Testing Measurements Right Atrium Right Ventricle Left Ventricle Sensitivity (mV) 1.6 mV 11.6 mV Not done mV Impedence (Ohms) 850 ohms 740 ohms 1050 ohms Pace Threshold Not done V @ ms 0.5 V @ 0.5 ms Not done V @ ms Pacing % 89 % 94 % 94 % HV Lead Impedance N/A 58 ohms N/A Battery Status: 2.4 years to MELANIA, charge time 9.1 seconds. Episodes last 90 days/Comments: AF [place] 0 %,longest duration 0. There were no treated ventricular arrhythmias noted on today's remote interrogation. NORMAL DEVICE FUNCTION PROGRAMMED MEDICATIONS: Anti-coagulant(s): None Anti-arrhythmic(s): Coreg 25 mg twice daily PLAN: 1) Cohn BiV ICD evaluation 2) Cohn remote transmission scheduled in 3 months. 3) Programming appropriate for device settings Winston Jensen, RN Jamal Miller III, MD [facility] PROCEDURES Final Result from Last 3 Months Insurance MEDICARE SOLUTIONS MEDICARE SOLUTIONS Advance Directives For more information, please contact: [phone] * Full Code (Latest Code Status on File) Date Activated Date Inactivated Comments 06/15/2022 8:47 AM 06/15/2022 3:47 PM * Full Code Date Activated Date Inactivated Comments 08/19/2020 8:56 PM 08/20/2020 3:19 PM Care Teams Adult Family Home Program Manager Relationship Specialty Start Date End Date Ralph Holland MD [address] [place] [address] PCP - General Internal Medicine 04/14/17 Miscellaneous, Not In File 08/19/20
--- OUTSIDE RECORDS SUMMARY | 2024-04-10 10:42 | XMS_ITS | Referral Summary ---
Author Organization [facility] Building [facility] Address [address] [place] [address] Care Team Providers Care Liner Helper Name Role Phone Ralph Holland MD Primary Care Provider [phone] Miscellaneous, Not In File Unavailable Unava ilable Encounters Date Type Department Care Team Description 03/11/2024 7:15 AM ASSOCIATE DIRECTOR QA Ancillary Procedure Ar[facility]ia Center [address] [address] ICD (implantable cardioverter-defibril lator), biventricular, in situ (Primary Dx); NICM (nonischemic cardiomyopathy) (CMS/HCC) (HCC) from Last 3 Months Allergies Active Allergy Reactions Criticality Noted Date [...] (1,000 mcg total) by mouth daily Active shjmp-6-uix-epa -dpa-fish oil 1,050-1,200 mg capsule 1 capsule [...] r-defibrillator), biventricular, in situ 08/19/2020 Overview (12/20/2022): Lalit Da Silva BI-V ICD imp on 08/19/20 for NICM. (Lenard Leong. Scooter Trujillo. [facility]. BIO RA Lead Solia [id number] 06/19/19 SJM RV Lead [id number] SJM LV Lead [id number] 08/19/20 Cardiomyopathy 08/19/2020 Chronic systolic congestive heart [...] week. I advised him to follow-up with drywall taper helper. We discussed life vest and he is [...] scheduled. Primary osteoarthritis of right knee 04/14/2017 Immunizations Immunization Administration Dates Next Due Influenza, Quadrivalent, Hig h Dose, Preservative Free, Intrr 12/02/2020,01/02/2020 Influenza, Trivalent, High D ose, Split, Preservative Free, Intramuscular 12/08/2018 Pfizer SARS-CoV-2 Monovalent Vaccination (12+ Yrs) PURPLE 05/04/2020,04/13/2020 Social History Tobacco Use Types Packs/Day Years [...] on file Legal Sex Male 11:12 AM ASSOCIATE DIRECTOR QA Gender Identity Male 08/06/2020 10:27 AM CDT Sexual Orientation Not on file Last Filed Vital Signs Vital Sign Reading [...] 10/12/2023 9:50 AM CDT Plan of Treatment Not on file Medical Devices Implanted Type Area Sensor Operator Device Identifier Shelf Expiration Date Model / Serial / Lot Cohn Vascular [id number] Defib Cardiac [id number] [place] Hf Df4 Is-4 Is-1 [facility] [place] - [id number] - [id number] Implanted:Qty: 1 on 08/19/2020 by Ildefonso Bridges MD at [facility] ICD Cohn Vascular [id number] 08/13/2022 C [id number] / [id number] / [employer] 7121q/65 Durata Sj4 7fr 65cm 2 Coil True Bipolar Cardioverter - [id number] - [id number] Implanted:Qty: 1 on 08/19/2020 by Ildefonso Bridges MD at [facility] Lead [employer] [id number] 03/16/2021 7121Q/65 / [id number] / [employer] 1458ql/86 Quartet 4.7fr 86cm Quadripolar Is-4 Llll Connector 16 Curve Low - [id number] - [id number] Implanted:Qty: 1 on 08/19/2020 by Ildefonso Bridges MD at [facility] Lead [employer] [id number] 05/15/2023 1458QL/86 / [id number] / Biotronik Inc [id number] Endocardial Pacing Lead Promri Solia T 60 - [id number] Implanted:Qty: 1 on 06/19/2019 by Tanmay Polanco MD at [facility] Biotronik Inc 06/18/2020 [id number] 81 / / Biotronik Inc [id number] Endocardial Pacing Lead Promri Solia Jt 53 - [id number] Implanted:Qty: 1 on 06/19/2019 by Tanmay Polanco MD at [facility] Biotronik Inc 06/18/2020 3951 34 / / Medtronic Inc [id number] Tyrx 3.3x2.9in Large Envelope Absorbable Polyarylate Minocycline - [id number] Implanted:Qty: 1 on 06/19/2019 by Tanmay Polanco MD at [facility] Med[employer]onic Inc 12/20/2019 CMRM 6133 / / [employer] Jose [id number] Device Closure Angio-Seal Vip Bondek-Plus Polyglyd L70 Cm Od6 Fr Odsec.035 In Vascular - [id number] Implanted:Qty: 1 on 07/31/2020 by Candelario Trujillo MD at [facility] Medical Jose [id number] / / Explanted Type Area Sensor Operator Device Identifier Shelf Expiration Date Model / Serial / Lot Biotronik Inc [id number] Edora Promri 08z06m4.5mm 1 Chamber Rate Adaptive Unipolar Bipolar - [id number] Implanted:Qty: 1 on 06/19/2019 by Tanmay Polanco MD at [facility] Explanted:Qty: 1 on 08/19/2020 by Ildefonso Bridges MD at [facility] Biotronik Inc 06/18/2020 [id number] / / Procedures Procedure Name Priority Date/Time Associated Diagnosis Comments DEVICE CHECK - REMOTE Routine 03/11/2024 10:07 AM ASSOCIATE DIRECTOR QA NICM (nonischemic cardiomyopathy) (CMS/HCC) (HCC) from Last 3 Months Results * DEVICE CHECK - REMOTE (03/11/2024 10:07 AM ASSOCIATE DIRECTOR QA) Anatomical Region Laterality Modality Other Narrative 03/15/2024 7:58 AM ASSOCIATE DIRECTOR QA Table formatting from the original result was [...] 9.1 seconds. Episodes last 90 days/Comments: AF [place] 0 %,longest duration 0. There were no [...] Advance Directives For more information, please contact: [phone] * Full Code (Latest Code Status on File) Date Activated Date Inactivated Comments 06/15/2022 8:47 AM 06/15/2022 3:47 PM * Full Code Date Activated Date Inactivated Comments 08/19/2020 8:56 PM 08/20/2020 3:19 PM Care Teams Liner Helper Relationship Specialty Start Date End Date Ralph Holland MD [address] [place] [address] PCP - General Internal Medicine 04/14/17 Miscellaneous, Not In File 08/19/20
--- OUTSIDE RECORDS SUMMARY | 2024-04-10 10:42 | XMS_ITS | Patient Health Summary ---
Author Organization [facility] Address [address] [place] [address] Care Team Providers Care Architect Internship Name Role Phone Ralph Holland MD Primary Care Provider [phone] Note from [facility],non-owned Affiliates and Associated Physician Practices is amultiple site organization consisting of ambulatory clinics and hospital sitesin [place], [place], [place] and [place]. This disclosure is being madepursuant to the Care Everywhere program and may not contain all information available regarding this patient. Last updated 17.[facility] Social History Tobacco Use Types Packs/Day Years Used Date Smoking Tobacco: Never Assessed Sex and Gender Information Value Date Recorded Sex Assigned at Not on file Gender Identity Not on file Sexual Orientation Not on file Care Teams Architect Internship Relationship Specialty Start Date End Date Ralph Holland MD [address] [place] [address] PCP - General 04/17/18
--- OUTSIDE RECORDS SUMMARY | 2024-04-10 10:42 | XMS_ITS | Clinical Summary ---
Author Organization [facility] Address [address] [place] [address] Care Team Providers Care Supervisor Photoengraving Name Role Phone Ralph Holland MD Primary Care Provider [phone] Source Comments [facility],non-owned Affiliates and Associated Physician Practices is amultiple site organization consisting of ambulatory clinics and hospital sitesin [place], [place] and [place]. This disclosure is being madepursuant to the Care Everywhere program and may not contain all information available regarding this patient. Last updated 17.[facility] [employer] Social History Tobacco Use Types Packs/Day Years Used Date Smoking Tobacco: Never Assessed Sex and Gender Information Value Date Recorded Sex Assigned at Not on file Gender Identity Not on file Sexual Orientation Not on file Plan of Treatment Health Maintenance Due Date Last Done Comments HEPATITIS C SCREENING 05/31/1963 DTAP/TDAP/TD VACCINES (1 - Tdap) 1965 PNEUMOCOCCAL VACCINE 50+ (1 of 1 - PCV) 1996 ZOSTER VACCINE (1 of 2) 1996 Respiratory Syncytial Virus (RSV) Vaccine Pt: or over 60 yrs (1 - 1-dose 75+ series) 2021 COVID-19 VACCINE ( - 2023-2 5 season) 2023 INFLUENZA VACCINE (#1) 2023 DEPRESSION SCREENING 02/15/2024 MEDICARE AWV CALENDAR YEAR 2024 HEPATITIS B VACCINE Aged Out No longe r eligible based on patient's age to complete this topic HIB VACCINE Aged Out No longer eligi ble based on patient's age to complete this topic HPV VACCINE Aged Out No longer eligi ble based on patient's age to complete this topic MENINGOCOCCAL (Group B) VACCINE Aged Out No longer eligible based on patient's age to complete this topic MENINGOCOCCAL VACCINE Aged Out No jennifer matty eligible based on patient's age to complete this topic Care Teams Supervisor Photoengraving Relationship Specialty Start Date End Date Ralph Holland MD [address] [place] [phone] PCP - General 04/17/18
--- OUTSIDE RECORDS SUMMARY | 2024-04-10 10:42 | XMS_ITS | Clinical Summary ---
Author Organization [facility] Indira Benjamin Address [address] [address] Care Team Providers Care Tool And Die Maker/Designer Name Role Phone Ralph Holland MD Primary Care Provider + Allergies Active Allergy Reactions Criticality Noted Date Comments Sulfa (Sulfonamide Antibiotics) Fever Low 12/08/2021 Patient states he has fever, chills and sweating with sulfa drugs Medications atorvastatin (LIPITOR) 40 mg tablet Take 40 mg by mouth daily. 06/19/2021 Active cholecalciferol , vitamin D3, 1,000 unit Take 2,000 Units by mouth daily. Active cyanocobalamin 1,000 mcg Tablet Take 1,000 mcg by mouth daily. Active dapagliflozin-m etFORMIN (Xigduo XR) 10-1,000 mg tablet, IR & ER, biphasic 24hr Take 1 Tablet by mouth daily. 05/22/2021 Active glimepiride (AMARYL) 2 mg tablet Take 2 mg by mouth. Active siort-6-qno-epa -dpa-fish oil 1,050-1,200 mg Capsule 1 Capsule. Active omeprazole (PriLOSEC) 40 mg Capsule, Delayed Release(E.C.) Take 40 mg by mouth. Active sacubitriL-vals allie (ENTRESTO) 49-51 mg Tablet Take 1 Tablet by mouth 2 times daily. 10/22/2020 Active traZODone (DESYREL) 50 mg tablet Take 50 mg by mouth nightly as needed for Insomnia. Active allopurinoL (ZYLOPRIM) 300 mg tablet Take 300 mg by mouth daily. Active carvediloL (COREG) 25 mg tablet Take 75 mg by mouth daily. With 3 pills daily Active potassium chloride (KLOR-CON) 10 mEq Extended Release tablet Take 10 mEq by mouth daily with breakfast. Active Active Problems No known active problems Encounters Date Type Department Care Team Description 04/03/2024 External Device Data [facility] ABSTRACTION Provider, Abstract 03/07/2024 External Device Data [facility] ABSTRACTION Provider, Abstract 03/06/2024 External Device Data [facility] ABSTRACTION Provider, Abstract 01/17/2024 4:30 PM TRIM SAWYER Telephone Check Up [facility] - [place] [address] [place] [address] Grayson Vazquez MD Neuroendocrine tumor (CMS/HCC) (Primary Dx); Kidney mass from Last 3 Months Family History Medical History Relation Name Comments Cancer Father Heart Disease Half-Brother Cancer Half-Sister Diabetes Mother Diabetes Sister Relation Name Status Comments Father Half-Brother Half-Sister Alive Mother Sister Alive Son 1 Alive Son 2 Alive Social History Tobacco Use Types Packs/Day Years Used Date Smoking Tobacco: Never Passive Smoke Exposure: Never Smokeless Tobacco: Never Tobacco Cessation:Counseling Given: Not Answered Alcohol Use Standard Drinks/Week Comments Yes 0 (1 standard drink = 0.6 oz pur e alcohol) occasional Sex and Gender Information Value Date Recorded Sex Assigned at Not on file Legal Sex Male 2:33 PM CDT Gender Identity Not on file Sexual Orientation Not on file Last Filed Vital Signs Vital Sign Reading Time Taken Comments Blood Pressure 137/83 07/01/2023 9:23 AM CDT Pulse 71 07/01/2023 9:23 AM CDT Temperature 36.3 C (97.3 F) 07/01/2023 9:20 AM CDT Respiratory Rate 18 07/01/2023 9:20 AM CDT Oxygen Saturation 97% 07/01/2023 9:20 AM CDT Inhaled Oxygen Concentration - - Weight 96.2 kg (212 lb) 07/01/2023 9:20 AM CDT Height 182.9 cm (6') 12/08/2021 11:20 AM CDT Body Mass Index 28.75 12/08/2021 11:20 AM CDT Plan of Treatment Upcoming Encounters Date Type Department Care Team (Late st Contact Info) Description 04/26/2024 1:00 PM CDT Office Visit [facility] - [place] [address] [place] [address] Grayson Vazquez MD [address] [place] [address] Health Maintenance Due Date Last Done Comments DIABETES ANNUAL FOOT EXAM 1964 DIABETES ANNUAL RETINAL EXAM 1964 DIABETES MICROALBUMIN ANNUAL SCREEN 1964 LDL CHOLESTEROL ANNUAL 1964 DTAP/TDAP/TD VACCINES (1 - Tdap) 1965 ZOSTER VACCINE (1 of 2) 1996 DIABETES HBA1C Q 6 MONTHS 11/05/2015 05/05/2015 PNEUMOCOCCAL VACCINE 65+ YEA RS (2 of 2 - PCV) 11/15/2015 11/14/2014 RSV VACCINE (60+ or ) (1 - 1-dose 75+ series) 2021 INFLUENZA VACCINE (#1) 2023 , 01/02/2020, 12/08/2018, Additional history exists COVID-19 Vaccine (3 - 2023-2 5 season) 2023 05/04/2020, 04/13/2020 [place] Preventative Visit/Annual Wellness Visit 02/15/2024 Insurance [facility] [id number] Care Teams Tool And Die Maker/Designer Relationship Specialty Start Date End Date Ralph Holland MD [address] [place] [phone] PCP - General Internal Medicine 09/01/22
--- OUTSIDE RECORDS SUMMARY | 2024-04-10 10:42 | XMS_ITS | Referral Summary ---
Author Organization [facility] Address [address] [place] [address] Care Team Providers Care Assistant Teacher Name Role Phone Ralph Holland MD Primary Care Provider [phone] Source Comments [facility],non-owned Affiliates and Associated Physician Practices is [facility] organization consisting of ambulatory clinics and hospital sitesin [place], [place], [place] and [place]. This disclosure is being madepursuant to the Care Everywhere program and may not contain all information available regarding this patient. Last updated 17.[facility] Social History Tobacco Use Types Packs/Day Years Used Date Smoking Tobacco: Never Assessed Sex and Gender Information Value Date Recorded Sex Assigned at Not on file Gender Identity Not on file Sexual Orientation Not on file Plan of Treatment Not on file Care Teams Assistant Teacher Relationship Specialty Start Date End Date Ralph Holland MD [address] [place] [phone] PCP - General 04/17/18
--- OUTSIDE RECORDS SUMMARY | 2024-04-10 10:42 | XMS_ITS | Encounter Summary ---
Author Organization [facility] Address [address] [address] Care Team Providers Care Traffic Analysis Technician Name Role Phone Ralph Holland MD Primary Care Provider [phone] Encounter Details Date Type Department Care Team (Late st Contact Info) Description 06/08/2019 Lab Requisition [facility]OLOG[facility] [address] [place] [address] Dontrell Moreira MD Social History Tobacco Use Types Packs/Day Years Used Date Smoking Tobacco: Never Assessed Sex and Gender Information Value Date Recorded Sex Assigned at Not on file Gender Identity Not on file Sexual Orientation Not on file documented as of this encounter Plan of Treatment Not on file documented as of this encounter Visit Diagnoses Not on filedocumented in this encounter Care Teams Traffic Analysis Technician Relationship Specialty Start Date End Date Ralph Holland MD [address] [place] [phone] PCP - General 04/17/18 documented as of this encounter
--- OUTSIDE RECORDS SUMMARY | 2024-04-10 10:42 | XMS_ITS | Clinical Summary ---
Author Organization [facility] Address [address] [place] [address] Phone Care Team Providers Care Maintenance Porter Name Role Phone Ralph Holland MD Primary Care Provider [phone] Allergies Active Allergy Reactions Criticality Noted Date Comments Sulfa Antibiotics Other (see Comments) 08/29/19 16 Fever and hot flashes Medications allopurinol (ZYLOPRIM) 300 MG Tablet Take 300 mg by mouth daily. 12 6 Active amLODIPine (NORVASC) 10 MG Tablet Take 5 mg by mouth daily. 12 6 Active carvedilol (COREG) 25 MG Tablet TAKE ONE TABLET BY MOUTH TWO TIMES A DAY 60 Tab 5 6 Active Additional Information Patient taking differently: 25 mg Oral 2 TIMES DAILY, Tuesday and Tuesday only, Reported on 05/26/2019 potassium chloride CR (KLOR-CON) 10 MEQ Tablet Controlled Release Take 1 Tab by mouth 2 times daily. 240 Tab 5 7 Active Additional Information Patient taking differently:10 mEq Oral4 TIMES DAILY, Reported on 05/26/2019 valsartan-hydroC HLOROthiazide (DIOVAN-HCT) 320-25 MG Tablet Take 1 Tab by mouth daily. Active spironolactone (ALDACTONE) 50 MG Tablet Take 50 mg by mouth daily. Active omeprazole (PRILOSEC) 40 MG CAPSULE DELAYED RELEASEIndicatio ns:Gastroesophag eal reflux disease without esophagitis,Ches t pain, unspecified type Take 1 Cap by mouth daily. 90 Cap 3 7 Active linagliptin (TRADJENTA) 5 MG Tablet Take 5 mg by mouth daily. Active pravastatin (PRAVACHOL) 20 MG Tablet Take 20 mg by mouth daily. Active glimepiride (AMARYL) 2 MG Tablet Take 2 mg by mouth every morning. Active Fenofibrate 120 MG Tablet Take 120 mg by mouth daily. Active Olmesartan Medoxomil 40 MG Tablet Take 40 mg by mouth daily. Active furosemide (LASIX) 20 MG Tablet Take 1 Tablet by mouth daily. 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 Essential hypertension with goal blood pressure less than 130/80 05/13/2015 Hyperlipemia 05/13/2015 Hypokalemia 05/13/2015 Gout 05/13/2015 DM (diabetes mellitus) Nephrolithiasis Encounters Date Type Department Care Team Description 01/31/2024 1:48 PM PREVOCATIONAL/REHABILITATION COUNSELOR - 01/31/2024 5:22 PM PREVOCATIONAL/REHABILITATION COUNSELOR Emergency [facility] [address] [place] [id number] Shree Berg MD Lower GI bleed Discharge Disposition: Discharged to home or Selfcare 01/31/2024 Travel from Last 3 Months Immunizations Immunization Administration Dates Next Due Influenza Vaccine greater than 3 yrs 11/14/2014 Influenza Vaccine, Quadrivalent, PF 12/08/2017,1 Influenza, high-dose, trivalent, PF 11/27/2014 Pneumococcal Vaccine Adult - 23 Valent 5 Family History Medical History Relation Name Comments Cancer Father lung Diabetes Mother Relation Name Status Comments Father Mother Social History Tobacco Use Types Packs/Day Years Used Date Smoking Tobacco: Never Smokeless Tobacco: Former Tobacco Cessation:Counseling Given: Not Answered Comments:QUIT CHEWING YRS AGO Alcohol Use Standard Drinks/Week Comments No 0 (1 standard drink = 0.6 oz pur e alcohol) occasional drink Sexually Active Control Partners Comments Yes Female Sex and Gender Information Value Date Recorded Sex Assigned at Not on file Legal Sex Male 10:39 PM CDT Gender Identity Not on file Sexual Orientation Not on file Occupation Industry Job Start Date Job End Date retired from [employer] Not on file Not on file Not o n file Last Filed Vital Signs Vital Sign Reading Time Taken Comments Blood Pressure 122/76 01/31/2024 5:15 PM PREVOCATIONAL/REHABILITATION COUNSELOR Pulse 70 01/31/2024 5:15 PM PREVOCATIONAL/REHABILITATION COUNSELOR Temperature 36.9 C (98.4 F) 01/31/2024 1:46 PM PREVOCATIONAL/REHABILITATION COUNSELOR Respiratory Rate 16 01/31/2024 5:15 PM PREVOCATIONAL/REHABILITATION COUNSELOR Oxygen Saturation 95% 01/31/2024 5:15 PM PREVOCATIONAL/REHABILITATION COUNSELOR Inhaled Oxygen Concentration - - Weight 96.2 kg (212 lb) 01/31/2024 1:46 PM PREVOCATIONAL/REHABILITATION COUNSELOR Height 182.9 cm (6') 01/31/2024 1:46 PM PREVOCATIONAL/REHABILITATION COUNSELOR Body Mass Index 28.75 01/31/2024 1:46 PM PREVOCATIONAL/REHABILITATION COUNSELOR Plan of Treatment Health Maintenance Due Date Last Done Comments Diabetes: Eye Exam 1945 Diabetes: Foot Exam 1945 Hepatitis C Virus (HCV) Screening 1945 TdaP Immunization 1945 Zoster Immunization (1 of 2) 1996 Pneumococcal Immunization (50+ years) (2 of 2 - PCV) 11/15/2015 11/14/2014 Diabetes: Hemoglobin A1c 05/24/2016 11/24/2015, 0302/2015 Respiratory Syncytial Virus (RSV) Immunization (Adult) (1 - 1-dose 75+ series) 2021 SARS-COV-2 Immunization ( season) 2024 12/08/2023, 12/02/2022, 12/04/2021, Additional history exists Diabetes: Nephropathy Screening 01/30/2025 01/31/2024, 04/20/2023, 01/13/2022, Additional history exists Pneumococcal Immunization Combined Discontinued 11/14/2014 Colonoscopy High Risk Discontinued 06/04/2016 Colonoscopy Discontinued 06/04/2016, 10/01/2009 Colorectal Cancer Screening Discontinued Influenza Immunization Completed , 12/02/2022, 11/25/2021, Additional history exists Cologuard Discontinued Hepatitis B Immunization Aged Out No longer eligible based on patient's age to complete this topic Immunochemical Fecal Occult Blood Discontinued Meningococcal Immunization (ACWY) Aged Out No longer eligible based on patient's age to complete this topic Rotavirus Immunization Aged Out No lo nger eligible based on patient's age to complete this topic Procedures Procedure Name Priority Date/Time Associated Diagnosis Comments CT ABDOMEN PELVIS W/O CONTRAST Stat with Interpretation 01/31/2024 4:00 PM PREVOCATIONAL/REHABILITATION COUNSELOR LAVENDER TOP TUBE STAT 01/31/2024 2:0 5 PM PREVOCATIONAL/REHABILITATION COUNSELOR LAVENDER TOP TUBE STAT 01/31/2024 2:0 5 PM PREVOCATIONAL/REHABILITATION COUNSELOR LAVENDER TOP TUBE STAT 01/31/2024 2:0 5 PM PREVOCATIONAL/REHABILITATION COUNSELOR GOLD TOP TUBE STAT 01/31/2024 2:05 PM PREVOCATIONAL/REHABILITATION COUNSELOR CBC WITH AUTO DIFFERENTIAL STAT 01/31/2024 2:05 PM PREVOCATIONAL/REHABILITATION COUNSELOR EXTRA TUBES STAT 01/31/2024 2:05 PM PREVOCATIONAL/REHABILITATION COUNSELOR PROTIME (PT) (PROTHROMBIN TIME) STAT 01/31/2024 2:05 PM PREVOCATIONAL/REHABILITATION COUNSELOR CMP (COMPREHENSIVE METABOLIC PANEL) STAT 01/31/2024 2:05 PM PREVOCATIONAL/REHABILITATION COUNSELOR COMPLETE BLOOD COUNT (CBC) WITH DIFF STAT 01/31/2024 2:05 PM PREVOCATIONAL/REHABILITATION COUNSELOR EKG 12 LEAD STAT 01/31/2024 1:56 PM PREVOCATIONAL/REHABILITATION COUNSELOR EKG SCAN 01/31/2024 12:00 AM PREVOCATIONAL/REHABILITATION COUNSELOR RHYTHM STRIP 01/31/2024 12:00 AM PREVOCATIONAL/REHABILITATION COUNSELOR HEMOGLOBIN, A1C Routine 11/24/2015 from Last 3 Months or Most Recently Relevant to Health Maintenance Results * CT ABDOMEN PELVIS W/O CONTRAST (01/31/2024 4:00 PM PREVOCATIONAL/REHABILITATION COUNSELOR) Anatomical Region Laterality Modality Abdomen N/A Computed Tomogra phy 01/31/2024 4:49 PM PREVOCATIONAL/REHABILITATION COUNSELOR Impressions 01/31/2024 4:52 PM PREVOCATIONAL/REHABILITATION COUNSELOR IMPRESSION: 1. No acute findings of the abdomen or pelvis. 2. Cholelithiasis without evidence of acute cholecystitis. 3. 4.2 cm infrarenal abdominal aortic aneurysm, previously 3.3 cm in 2018. Narrative 01/31/2024 4:52 PM PREVOCATIONAL/REHABILITATION COUNSELOR EXAM DESCRIPTION: CT ABDOMEN PELVIS W/O CONTRAST REASON FOR STUDY: c/o rosalino rectal bleeding that began earlier today after a colonoscopy. HX of DM, GERD, HTN, Disease. TECHNIQUE: CT scan of the abdomen and pelvis performed without intravenous and without oral contrast using helical scanning technique. Reconstructed coronal and sagittal MPR images reviewed. All images stored on PACS. Automated exposure control was used as a dose optimization technique for this examination. COMPARISON: CT abdomen and pelvis 06/22/2017 FINDINGS: The sensitivity for detection of visceral lesions is diminished without the use of intravenous contrast. LOWER CHEST: No significant pulmonary abnormalities. No effusion. LIVER: Normal size and contour. Stable hypodense liver lesions measuring up to 1.3 cm, likely benign cysts versus hemangiomas. GALLBLADDER: Small gallstones. No gallbladder wall thickening or adjacent inflammatory stranding. BILE DUCTS: No intrahepatic or extrahepatic ductal dilatation. SPLEEN: Normal size. Scattered calcified splenic granulomas. No suspicious splenic lesion. PANCREAS: No identified cystic or solid masses. No significant calcifications. No adjacent inflammation or peripancreatic fluid collections. Pancreatic duct not dilated. ADRENALS: Stable bilateral fat containing lesions measuring up to 2.8 cm, suggestive of myelolipoma. KIDNEYS/URINARY TRACT: Exophytic simple fluid density 9.6 cm right renal cyst, previously 8 cm. Left renal lower pole 7.6 cm fluid density cyst, previously 6 cm. No stones. No hydronephrosis or hydroureter. Urinary bladder is unremarkable. GI: The distal esophagus and stomach are normal. Redemonstrated small duodenal lipoma. No dilated bowel loops. No obvious wall thickening. Normal appendix. No significant diverticular disease. PERITONEUM: No ascites or free air. RETROPERITONEUM: No mass or adenopathy. REPRODUCTIVE: The prostate is enlarged. VASCULATURE: 4.2 cm infrarenal abdominal aortic aneurysm, previously 3.3 cm. MUSCULOSKELETAL: No significant abnormality. OTHER: Stable small fat containing left inguinal hernia. THIS IS AN ELECTRONICALLY VERIFIED FINAL REPORT 01/31/2024 4:49 PM - Electronically signed by Frank Ray M.D. KR: CATALINO Report ID: [id number] Reading Location: [id number] Procedure Note Frank Ray MD - 01/31/2024 EXAM DESCRIPTION: CT ABDOMEN PELVIS W/O CONTRAST REASON FOR STUDY: c/o rosalino rectal bleeding that began earlier today after a colonoscopy. HX of DM, GERD, HTN, Disease. TECHNIQUE: CT scan of the abdomen and pelvis performed without intravenous and without oral contrast using helical scanning technique. Reconstructed coronal and sagittal MPR images reviewed. All images stored on PACS. Automated exposure control was used as a dose optimization technique for this examination. COMPARISON: CT abdomen and pelvis 06/22/2017 FINDINGS: The sensitivity for detection of visceral lesions is diminished without the use of intravenous contrast. LOWER CHEST: No significant pulmonary abnormalities. No effusion. LIVER: Normal size and contour. Stable hypodense liver lesions measuring up to 1.3 cm, likely benign cysts versus hemangiomas. GALLBLADDER: Small gallstones. No gallbladder wall thickening or adjacent inflammatory stranding. BILE DUCTS: No intrahepatic or extrahepatic ductal dilatation. SPLEEN: Normal size. Scattered calcified splenic granulomas. No suspicious splenic lesion. PANCREAS: No identified cystic or solid masses. No significant calcifications. No adjacent inflammation or peripancreatic fluid collections. Pancreatic duct not dilated. ADRENALS: Stable bilateral fat containing lesions measuring up to 2.8 cm, suggestive of myelolipoma. KIDNEYS/URINARY TRACT: Exophytic simple fluid density 9.6 cm right renal cyst, previously 8 cm. Left renal lower pole 7.6 cm fluid density cyst, previously 6 cm. No stones. No hydronephrosis or hydroureter. Urinary bladder is unremarkable. GI: The distal esophagus and stomach are normal. Redemonstrated small duodenal lipoma. No dilated bowel loops. No obvious wall thickening. Normal appendix. No significant diverticular disease. PERITONEUM: No ascites or free air. RETROPERITONEUM: No mass or adenopathy. REPRODUCTIVE: The prostate is enlarged. VASCULATURE: 4.2 cm infrarenal abdominal aortic aneurysm, previously 3.3 cm. MUSCULOSKELETAL: No significant abnormality. OTHER: Stable small fat containing left inguinal hernia. THIS IS AN ELECTRONICALLY VERIFIED FINAL REPORT 01/31/2024 4:49 PM - Electronically signed by Frank Ray M.D. KR: CATALINO Report ID: [id number] Reading Location: [id number] IMPRESSION: 1. No acute findings of the abdomen or pelvis. 2. Cholelithiasis without evidence of acute cholecystitis. 3. 4.2 cm infrarenal abdominal aortic aneurysm, previously 3.3 cm in 2018. us Shree Berg MD IMG CT ORDERABLES Final Result * Gold Top Tube (01/31/2024 2:05 PM PREVOCATIONAL/REHABILITATION COUNSELOR) Blood No Phlebotomy Charged / Unknown 01/31/2024 2:05 PM PREVOCATIONAL/REHABILITATION COUNSELOR 01/31/2024 2:26 PM PREVOCATIONAL/REHABILITATION COUNSELOR us Shree Berg MD CHEMISTRY ORDERABLES Fin al Result Performing Organization Address City/[facility]/ZIP Co de Phone Number [facility] [place] [address] * Lavender Top Tube (01/31/2024 2:05 PM PREVOCATIONAL/REHABILITATION COUNSELOR) Only the most recent of3 resultswithin the time period is included. Blood No Phlebotomy Charged / Unknown 01/31/2024 2:05 PM PREVOCATIONAL/REHABILITATION COUNSELOR 01/31/2024 2:26 PM PREVOCATIONAL/REHABILITATION COUNSELOR us Shree Berg MD HEMATOLOGY ORDERABLES Fi nal Result Performing Organization Address [facility]/ZIP Co de Phone Number [facility] [place] [address] * (ABNORMAL) CBC with Auto Differential (01/31/2024 2:05 PM PREVOCATIONAL/REHABILITATION COUNSELOR) WBC 8.22 4.00 - 12.00 10(3)/mcL 01/31/2024 2:47 PM PREVOCATIONAL/REHABILITATION COUNSELOR [facility] RBC 5.50 4.40 - 5.80 10(6)/mcL 01/31/2024 2:47 PM PREVOCATIONAL/REHABILITATION COUNSELOR [facility] HEMOGLOBIN (HGB) 17.1(H) 13.0 - 16.5 g/dL 01/31/2024 2:47 PM [facility] HEMATOCRIT (HCT) 52.3(H) 38.0 - 50.0 % 01/31/2024 2:47 PM [facility] MCV 95.1 82.0 - 96.0 fL 01/31/2024 2:47 PM [facility] MCH 31.1 26.0 - 32.0 pg 01/31/2024 2:47 PM [facility] MCHC 32.7 31.0 - 36.0 g/dL 01/31/2024 2:47 PM [facility] PLATELET COUNT 159 140 - 440 10(3)/mcL 01/31/2024 2:47 PM [facility] RDW 13.4 11.8 - 15.5 % 01/31/2024 2:47 PM [facility] MPV 11.3 8.0 - 12.6 fL 01/31/2024 2:47 PM [facility] NEUTROPHILS 68.9(H) 40.0 - 68.0 % 01/31/2024 2:47 PM [facility] LYMPHOCYTES 19.0 19.0 - 49.0 % 01/31/2024 2:47 PM [facility] MONOCYTES 10.2 3.0 - 13.0 % 01/31/2024 2:47 PM [facility] EOSINOPHILS 1.5 0.0 - 8.0 % 01/31/2024 2:47 PM [facility] BASOPHILS 0.4 0.0 - 1.0 % 01/31/2024 2:47 PM [facility] ABSOLUTE NEUTROPHILS 5.67(H) 1.40 - 5.30 10(3)/mcL 01/31/2024 2:47 PM [facility] ABSOLUTE LYMPHOCYTES 1.56 0.90 - 3.30 10(3)/mcL 01/31/2024 2:47 PM [facility] ABSOLUTE MONOCYTES 0.84 0.10 - 0.90 10(3)/mcL 01/31/2024 2:47 PM PREVOCATIONAL/REHABILITATION COUNSELOR [facility] ABSOLUTE EOSINOPHIL 0.12 0.00 - 0.50 10(3)/mcL 01/31/2024 2:47 PM PREVOCATIONAL/REHABILITATION COUNSELOR [facility] ABSOLUTE BASOPHILS 0.03 0.00 - 0.10 10(3)/mcL 01/31/2024 2:47 PM PREVOCATIONAL/REHABILITATION COUNSELOR [facility] NRBC PER 100 WBC 0 01/31/20 2:47 PM PREVOCATIONAL/REHABILITATION COUNSELOR [facility] Blood Venipuncture / Unknown 01/31/2024 2:05 PM PREVOCATIONAL/REHABILITATION COUNSELOR 01/31/2024 2:24 PM PREVOCATIONAL/REHABILITATION COUNSELOR Shree Berg MD HEMATOLOGY ORDERABLES Fi nal Result Performing Organization Address [facility] Co de Phone Number [facility] [place] [address] * Protime (PT or Prothrombin Time) [id number] (01/31/2024 2:05 PM PREVOCATIONAL/REHABILITATION COUNSELOR) PROTIME-PATIENT 14.4 11.6 - 14.8 sec 01/31/2024 2:51 PM PREVOCATIONAL/REHABILITATION COUNSELOR [facility] INR 1.1 0.9 - 1.2 01/31/2024 2:51 PM PREVOCATIONAL/REHABILITATION COUNSELOR [facility] Comment: Therapeutic Ranges INR = 2.0-3.0: Venous thromb, atrial fib, pul embolism, tissue heart valve, ami. INR = 2.5-3.5: Mechanical heart valve Critical value for INR is >/= 4.5 Blood Venipuncture / Unknown 01/31/2024 2:05 PM PREVOCATIONAL/REHABILITATION COUNSELOR 01/31/2024 2:24 PM PREVOCATIONAL/REHABILITATION COUNSELOR us Shree Berg MD HEMATOLOGY ORDERABLES Fi nal Result Performing Organization Address [facility]/ZIP Co de Phone Number [facility] [place] [address] * (ABNORMAL) Comprehensive Metabolic Panel (Cmp) [id number] (01/31/2024 2:05 PM [facility]) SODIUM 141 136 - 145 mmol/L 01/31/2024 2:49 PM [facility] POTASSIUM 4.1 3.5 - 5.1 mmol/L 01/31/2024 2:49 PM [facility] CHLORIDE 107 98 - 107 mmol/L 01/31/2024 2:49 PM [facility] CO2, VENOUS 26 22 - 30 mmol/L 01/31/2024 2:49 PM [facility] ANION GAP 12.1 <18.0 mmol/L 01/31/2024 2:49 PM [facility] GLUCOSE 134(H) 70 - 99 mg/dL 01/31/2024 2:49 PM [facility] BUN 12 8 - 26 mg/dL 01/31/2024 2:49 PM [facility] CREATININE, BLOOD 1.74(H) 0.70 - 1.30 mg/dL 01/31/2024 2:49 PM [facility] BUN/CREATININE RATIO 7(L) 12 - 20 ratio 01/31/2024 2:49 PM [facility] TOTAL PROTEIN 7.1 6.3 - 8.2 g/dL 01/31/2024 2:49 PM [facility] ALBUMIN 3.6 3.5 - 5.0 g/dL 01/31/2024 2:49 PM [facility] A/G RATIO 1.0 1.0 - 2.2 01/31/2024 2:49 PM [facility] CALCIUM 9.1 8.7 - 10.5 mg/dL 01/31/2024 2:49 PM [facility] T BILI 0.9 0.2 - 1.2 mg/dL 01/31/2024 2:49 PM [facility] SGOT (AST) 25 5 - 34 U/L 01/31/2024 2:49 PM [facility] SGPT (ALT) 34 0 - 55 U/L 01/31/2024 2:49 PM PREVOCATIONAL/REHABILITATION COUNSELOR [facility] ALKALINE PHOSPHATASE 53 40 - 150 U/L 01/31/2024 2:49 PM PREVOCATIONAL/REHABILITATION COUNSELOR [facility] GFR, ESTIMATED 40(L) >=60 01/31/2024 2:49 PM PREVOCATIONAL/REHABILITATION COUNSELOR [facility] Comment: Creatinine Clearance is the preferred criteria for selecting drug dose adjustments in renally impaired patients. The GFR is provided as additional pertinent clinical information. GFR is reported in mL/min/1.73 sq m. Calculation based on the Chronic Kidney Disease Epidemiology Collaboration (CKD- EPI) equation refit without adjustment for race. GFR, EST. 46(L) >=60 024 2:49 PM PREVOCATIONAL/REHABILITATION COUNSELOR [facility] GFR, EST. NONAFRICAN 38(L) >=60 01/31/2024 2:49 PM PREVOCATIONAL/REHABILITATION COUNSELOR [facility] Blood Venipuncture / Unknown 01/31/2024 2:05 PM PREVOCATIONAL/REHABILITATION COUNSELOR 01/31/2024 2:24 PM PREVOCATIONAL/REHABILITATION COUNSELOR us Shree Berg MD CHEMISTRY ORDERABLES Fin al Result [facility] [place] [address] * EKG 12 LEAD (01/31/2024 1:56 PM PREVOCATIONAL/REHABILITATION COUNSELOR) Ventricular Rate 78 BPM EXTERNAL EKG Atrial Rate 78 BPM EXTERNAL EKG P-R Interval 240 ms EXTERNAL EKG QRS Duration 162 ms EXTERNAL EKG Q-T Duration 458 ms EXTERNAL EKG QTC CALCULATION 522 ms EXTERNAL EKG P [place] 56 degrees EXTERNAL EKG R [place] 233 degrees EXTERNAL EKG T [place] 36 degrees EXTERNAL EKG 01/31/2024 1:56 PM PREVOCATIONAL/REHABILITATION COUNSELOR Impressions EXTERNAL EKG - 02/01/2024 3:05 PM PREVOCATIONAL/REHABILITATION COUNSELOR Atrial-sensed ventricular-paced rhythm with prolonged AV conduction Abnormal ECG When compared with ECG of 20-APR-2023 10:06, Vent. rate has increased BY 6 BPM Confirmed by Harjai, Manuel ([id number]) on 02/01/2024 3:05:57 PM Narrative Procedure Note Manuel Anthony MD - 02/01/2024 IMPRESSION: Atrial-sensed ventricular-paced rhythm with prolonged AV conduction Abnormal ECG When compared with ECG of 20-APR-2023 10:06, Vent. rate has increased BY 6 BPM Confirmed by Manuel Anthony ([id number]) on 02/01/2024 3:05:57 PM us Shree Berg MD IMG ECG ORDERABLES Final Result Performing Organization Address City/[facility]/ZIP Co de Phone Number EXTERNAL EKG * RHYTHM STRIP (01/31/2024 12:00 AM PREVOCATIONAL/REHABILITATION COUNSELOR) 01/31/2024 us Provider Scan IMG ECG ORDERABLES Final Result Performing Organization Address City/[facility] Co de Phone Number RESULTING AGENCY * EKG SCAN (01/31/2024 12:00 AM PREVOCATIONAL/REHABILITATION COUNSELOR) 01/31/2024 us Provider Scan IMG ECG ORDERABLES Final Result Performing Organization Address [facility] Co de Phone Number RESULTING AGENCY * HEMOGLOBIN, A1C (11/24/2015) HGB-A1C 6.4 % Blood specimen (specimen) us Ralph Holland MD CHEMISTRY ORDERABLES Edited Re sult - Final from Last 3 Months or Most Recently Relevant to Health Maintenance Insurance MEDICARE [facility] Member Subscriber Plan / Payer (Ef fective 2022-Present) Name:Brock Lovett Relation to Subscriber:Self Name:Brock Lovett Payer ID:[id number] (NAIC) Type:Not on file Address: [place] [phone] Care Teams Maintenance Porter Relationship Specialty Start Date End Date Ralph Holland MD [address] [place], [place] [id number] PCP - General Internal Medicine 11/24/15
== END 2024-04-10 09:37 | disposition home or self-care (01) ==
LOC: ANHLAB 09:38
PROVIDERS: PCP Internal Medicine; Visit Provider Internal Medicine Hematology & Oncology
DX: N28.89 Other specified disorders of kidney and ureter (principal)
CPT/HCPCS: 36415; 82668; 84260; 85025

== ENCOUNTER 2024-04-16 08:57 | Outpatient (CLI) | payer MEDICARE, SELFPAY ==
[2024-04-16 09:24] LABS: Estimated Glomerular Filt Rate 33
== END 2024-04-16 08:58 | disposition home or self-care (01) ==
PROVIDERS: PCP Internal Medicine; Visit Provider Internal Medicine Hematology & Oncology
DX: N28.89 Other specified disorders of kidney and ureter (principal); N28.1 Cyst of kidney, acquired; I71.43 Infrarenal abdominal aortic aneurysm, without rupture
CPT/HCPCS: 74170; Q9967

== ENCOUNTER 2024-04-26 13:10 | Outpatient (CLI) | payer MEDICARE, SELFPAY ==
[2024-04-26 13:25] LABS: Basophils Percent Auto 0.4 % (0.2-1.2); Eosinophils Absolute Auto 0.1 K/mm3 (0-0.3); Eosinophils Percent Auto 1.4 % (0-4.4); Hematocrit 50.3 % (42.0-52.0); Hemoglobin 16.8 g/dL (14.0-18.0); Immature Granulocyte Absolute 0.04 K/mm3 (0.00-0.031); Immature Granulocyte Percent A 0.4 % (0-0.5); Lymphocytes Absolute Auto 1.81 K/mm3 (0.9-3.2); Lymphocytes Percent Auto 18.6 % (18.3-44.2); Mean Corpuscular HGB Conc 33.4 g/dl (32-36); Mean Corpuscular Hemoglobin 31.2 pg (26-34); Mean Corpuscular Volume 93.5 fl (80-100); Mean Platelet Volume 10.6 fl (7.4-10.4); Monocytes Absolute Auto 0.8 K/mm3 (0.1-0.6); Monocytes Percent Auto 8.3 % (2.6-8.5); Neutrophils Absolute Auto 6.9 K/mm3 (1.3-6.7); Neutrophils Percent Auto 70.9 % (45.5-73.1); Platelet Count Result 157 k/mm3 (150-375); Red Blood Count 5.38 M/mm3 (4.6-6.20); Red Cell Distribution Width 13.3 % (11.5-14.5); White Blood Count 9.7 K/mm3 (4.5-10.0)
[2024-04-26 13:29] LABS: Blood Urea Nitrogen 20 mg/dL (8-26); Carbon Dioxide 26 mmol/L (22-30); Chloride 102 mmol/L (98-109); Estimated Glomerular Filt Rate 35; Glucose 103 mg/dL (70-105); Ionized Calcium (POC) 1.16 mmol/L (1.11-1.31); Potassium 4.2 mmol/L (3.5-4.9); Sodium 138 mmol/L (138-146)
--- OUTSIDE RECORDS SUMMARY | 2024-04-26 14:45 | XMS_ITS | Referral Summary ---
Author Organization [facility] Medical Office Building B Address [address] [place] [address] Care Team Providers Care Textile Finisher Name Role Phone Ralph Holland MD Primary Care Provider [phone] Miscellaneous, Not In File Unavailable Unava ilable Encounters Date Type Department Care Team Description 03/11/2024 7:15 AM PACKAGE SEALER Ancillary Procedure [facility] [address] [address] ICD (implantable cardioverter-defibril lator), biventricular, in situ (Primary Dx); NICM (nonischemic cardiomyopathy) (HCC) from Last 3 Months Allergies Active [...] (1,000 mcg total) by mouth daily Active ekymm-5-ctz-epa -dpa-fish oil 1,050-1,200 mg capsule 1 capsule [...] 08/19/20 for NICM. (Lenard Leong. Scooter Trujillo. [facility]. BIO RA Lead Solia [id number] 06/19/19 SJM RV Lead [id number] SJM LV Lead [id number] 08/19/20 Cardiomyopathy 08/19/2020 Chronic systolic congestive heart failure 2020 Overview (05/01/2020): Moderate on echo 07 December [...] week. I advised him to follow-up with personal financial counselor. We discussed life vest and he is [...] on file Legal Sex Male 11:12 AM PACKAGE SEALER Gender Identity Male 08/06/2020 10:27 AM CDT [...] on file Medical Devices Implanted Type Area Alberene Stone Setter Device Identifier Shelf Expiration Date Model / Serial / Lot Cohn Vascular [id number] Defib Cardiac [id number] [place] Hf Df4 Is-4 Is-1 [facility] [employer] - [id number] - [id number] Implanted:Qty: 1 on 08/19/2020 by Ildefonso Bridges MD at [facility] ICD Cohn Vascular [id number] 08/13/2022 C [id number] / [id number] / [employer] 7121q/65 Durata Sj4 7fr 65cm 2 Coil True Bipolar Cardioverter - [id number] - [id number] Implanted:Qty: 1 on 08/19/2020 by Ildefonso Bridges MD at [facility] Lead [employer] [id number] 03/16/2021 7121Q/65 / [id number] / [employer] 1458ql/86 Quartet 4.7fr 86cm Quadripolar Is-4 Llll Connector 16 Curve Low - [id number] - [id number] Implanted:Qty: 1 on 08/19/2020 by Ildefonso Bridges MD at [facility] Lead [employer] [id number] 05/15/2023 1458QL/86 / [id number] / [employer] Inc [id number] Endocardial Pacing Lead Promri Solia T 60 - [id number] Implanted:Qty: 1 on 06/19/2019 by Tanmay Polanco MD at [facility] [employer] 06/18/2020 [id number] / / Bi[employer] Inc [id number] Endocardial Pacing Lead Promri Solia Jt 53 - [id number] Implanted:Qty: 1 on 06/19/2019 by Tanmay Polanco MD at [facility] [employer] 06/18/2020 3951 34 / / Medtronic Inc [id number] Tyrx 3.3x2.9in Large Envelope Absorbable Polyarylate Minocycline - [id number] Implanted:Qty: 1 on 06/19/2019 by Tanmay Polanco MD at [facility] [employer] 12/20/2019 CMRM 6133 / / Motostrano Jose [id number] Device Closure Angio-Seal Vip Bondek-Plus Polyglyd L70 Cm Od6 Fr Odsec.035 In Vascular - [id number] Implanted:Qty: 1 on 07/31/2020 by Candelario Trujillo MD at [employer] [id number] / / Explanted Type Area Alberene Stone Setter Device Identifier Shelf Expiration Date Model / Serial / Lot Biotronik Inc [id number] Edora Promri 86s26d2.5mm 1 Chamber Rate Adaptive Unipolar Bipolar - [id number] Implanted:Qty: 1 on 06/19/2019 by Tanmay Polanco MD at [facility] Explanted:Qty: 1 on 08/19/2020 by Ildefonso Bridges MD at [facility] [employer] 06/18/2020 [id number] / / Procedures Procedure Name Priority Date/Time Associated Diagnosis Comments DEVICE CHECK - REMOTE Routine 03/11/2024 10:07 AM PACKAGE SEALER NICM (nonischemic cardiomyopathy) ([facility]) from Last 3 Months Results * DEVICE CHECK - REMOTE (03/11/2024 10:07 AM PACKAGE SEALER) Anatomical Region Laterality Modality Other Narrative 03/15/2024 7:58 AM PACKAGE SEALER Table formatting from the original result was [...] ohms N/A Battery Status: 2.4 years to [facility], charge time 9.1 seconds. Episodes last 90 days/Comments: AF [place] 0 %,longest duration 0. There were no [...] 3 Months Insurance MEDICARE SOLUTIONS MEDICARE SOLUTIONS [place] [id number] Advance Directives For more information, please contact: [phone] * Full Code (Latest Code Status on File) Date Activated Date Inactivated Comments 06/15/2022 8:47 AM 06/15/2022 3:47 PM * Full Code Date Activated Date Inactivated Comments 08/19/2020 8:56 PM 08/20/2020 3:19 PM Care Teams Textile Finisher Relationship Specialty Start Date End Date Ralph Holland MD [address] [facility] [place] [id number] PCP - General Internal Medicine 04/14/17 Miscellaneous, Not In File 08/19/20
--- OUTSIDE RECORDS SUMMARY | 2024-04-26 14:45 | XMS_ITS | Clinical Summary ---
Author Organization [facility] Medical Office Building B Address [address] [place] [address] Care Team Providers Care Registered Health Nurse Name Role Phone Ralph Holland MD Primary Care Provider [phone] Miscellaneous, Not In File Unavailable Unava ilable [...] (1,000 mcg total) by mouth daily Active olylv-2-ehk-epa -dpa-fish oil 1,050-1,200 mg capsule 1 capsule [...] biventricular, in situ 08/19/2020 Overview (12/20/2022): Cohn [place] BI-V ICD imp on 08/19/20 for NICM. (Lenard Leong. Scooter Trujillo. [facility]. BIO RA Lead Solia [id number] 06/19/19 SJM RV Lead [id number] SJM LV Lead [id number] 08/19/20 Cardiomyopathy 08/19/2020 Chronic systolic congestive heart [...] week. I advised him to follow-up with framing and hanging. We discussed life vest and he is [...] Department Care Team Description 03/11/2024 7:15 AM DRY CANS BACK TENDER Ancillary Procedure Arrhythmia Center [address] [facility] [address] [place] [address] ICD (implantable cardioverter-defibril lator), biventricular, in situ (Primary Dx); NICM (nonischemic cardiomyopathy) (HCC) from Last 3 Months Immunizations Immunization [...] apnea CPAP Cardiomyopathy (HCC) CHF (congestive heart failure) (HCC) Arrhythmia HX AV block, 2 d egree T 2, Complete Heart Block, s/p pacemaker Personal history of other me dical treatment Life Vest external defibrill ator Colon polyp Neuroendocrine tumor (HCC) duode num Heart disease Family History Medical History Relation [...] on file Legal Sex Male 11:12 AM DRY CANS BACK TENDER Gender Identity Male 08/06/2020 10:27 AM CDT [...] history exists Medical Devices Implanted Type Area Lavender Farm Worker Device Identifier Shelf Expiration Date Model / Serial / Lot Cohn Vascular [id number] Defib Cardiac [id number] [place] Hf Df4 Is-4 Is-1 Cnctr - [id number] - [id number] Implanted:Qty: 1 on 08/19/2020 by Ildefonso Bridges MD at [facility] ICD Cohn Vascular [id number] 08/13/2022 C [id number] / [id number] / [employer] 7121q/65 Durata Sj4 7fr 65cm 2 Coil True Bipolar Cardioverter - [id number] - [id number] Implanted:Qty: 1 on 08/19/2020 by Ildefonso Bridges MD at [facility] Lead [employer] [id number] 03/16/2021 7121Q/65 / [id number] / [employer] 1458ql/86 Quartet 4.7fr 86cm Quadripolar Is-4 Llll Connector 16 Curve Low - [id number] - [id number] Implanted:Qty: 1 on 08/19/2020 by Ildefonso Bridges MD at [facility] Lead [employer] [id number] 05/15/2023 1458QL/86 / [id number] / Biotronik Inc [id number] Endocardial Pacing Lead Promri Solia T 60 - [id number] Implanted:Qty: 1 on 06/19/2019 by Tanmay Polanco MD at [facility] [employer] 06/18/2020 3771 81 / / Bi[employer]ik Inc [id number] Endocardial Pacing Lead Promri Solia Jt 53 - [id number] Implanted:Qty: 1 on 06/19/2019 by Tanmay Polanco MD at [facility] [employer] 06/18/2020 3951 34 / / Medtronic Inc [id number] Tyrx 3.3x2.9in Large Envelope Absorbable Polyarylate Minocycline - [id number] Implanted:Qty: 1 on 06/19/2019 by Tanmay Polanco MD at [facility] [employer] 12/20/2019 CMRM 6133 / / [id number] [id number] Device Closure Angio-Seal Vip Bondek-Plus Polyglyd L70 Cm Od6 Fr Odsec.035 In Vascular - [id number] Implanted:Qty: 1 on 07/31/2020 by Candelario Trujillo MD at [facility] [employer] [id number] / / Explanted Type Area Lavender Farm Worker Device Identifier Shelf Expiration Date Model / Serial / Lot Biotronik Inc 801199 Edora Promri 64u11o1.5mm 1 Chamber Rate Adaptive Unipolar Bipolar - [id number] Implanted:Qty: 1 on 06/19/2019 by Tanmay Polanco MD at [facility] Explanted:Qty: 1 on 08/19/2020 by Ildefonso Bridges MD at [facility] [employer] 06/18/2020 [id number] / / Procedures Procedure Name Priority Date/Time Associated Diagnosis Comments DEVICE CHECK - REMOTE Routine 03/11/2024 10:07 AM DRY CANS BACK TENDER NICM (nonischemic cardiomyopathy) (HCC) from Last 3 Months Results * DEVICE CHECK - REMOTE (03/11/2024 10:07 AM DRY CANS BACK TENDER) Anatomical Region Laterality Modality Other Narrative 03/15/2024 7:58 AM DRY CANS BACK TENDER Table formatting from the original result was [...] 9.1 seconds. Episodes last 90 days/Comments: AF [place] 0 %,longest duration 0. There were no [...] Advance Directives For more information, please contact: [phone] * Full Code (Latest Code Status on File) Date Activated Date Inactivated Comments 06/15/2022 8:47 AM 06/15/2022 3:47 PM * Full Code Date Activated Date Inactivated Comments 08/19/2020 8:56 PM 08/20/2020 3:19 PM Care Teams Registered Health Nurse Relationship Specialty Start Date End Date Ralph Holland MD [address] [place] [address] PCP - General Internal Medicine 04/14/17 Miscellaneous, Not In File 08/19/20
--- OUTSIDE RECORDS SUMMARY | 2024-04-26 14:45 | XMS_ITS | Encounter Summary ---
Author Organization [facility] Address [address] [place] [address] Care Team Providers Care Strip Winder Name Role Phone Ralph Holland MD Primary Care Provider [phone] Encounter Details Date Type Department Care Team (Late st Contact Info) Description 06/08/2019 Lab Requisition [facility] MICROBIOLOGY [address] [place] [address] Dontrell Moreira MD Social History Tobacco Use [...] on filedocumented in this encounter Care Teams Strip Winder Relationship Specialty Start Date End Date Ralph Holland MD [address] [place] [phone] PCP - General 04/17/18 documented as of this encounter
--- OUTSIDE RECORDS SUMMARY | 2024-04-26 14:45 | XMS_ITS | Patient Health Summary ---
Author Organization [facility] Address [address] [place] [address] Care Team Providers Care Slate Splitter Name Role Phone Ralph Holland MD Primary Care Provider [phone] Note from [facility],non-owned Affiliates and Associated Physician Practices is amultiple site organization consisting of ambulatory clinics and hospital sitesin [place], [place], [place] and [place]. This disclosure is being madepursuant to the Care Everywhere program and may not contain all information available regarding this patient. Last updated 17.[facility] Social History Tobacco Use Types Packs/Day Years Used Date Smoking Tobacco: Never Assessed Sex and Gender Information Value Date Recorded Sex Assigned at Not on file Gender Identity Not on file Sexual Orientation Not on file Care Teams Slate Splitter Relationship Specialty Start Date End Date Ralph Holland MD [address] [place] [phone] PCP - General 04/17/18
--- OUTSIDE RECORDS SUMMARY | 2024-04-26 14:46 | XMS_ITS | Clinical Summary ---
Author Organization [facility] Address [address] [place] [address] Phone Care Team Providers Care Manager Environmental Health And Safety Name Role Phone Ralph Holland MD Primary Care Provider [phone] Allergies Active Allergy Reactions Criticality Noted Date [...] Department Care Team Description 01/31/2024 1:48 PM CURING OVEN TENDER - 01/31/2024 5:22 PM CURING OVEN TENDER Emergency [facility] Emergency [address] [place] [id number] Shree Berg MD Lower GI bleed Discharge [...] Start Date Job End Date retired from [employer] Not on file Not on file Not o n file Last Filed Vital Signs Vital Sign Reading Time Taken Comments Blood Pressure 122/76 01/31/2024 5:15 PM CURING OVEN TENDER Pulse 70 01/31/2024 5:15 PM CURING OVEN TENDER Temperature 36.9 C (98.4 F) 01/31/2024 1:46 PM CURING OVEN TENDER Respiratory Rate 16 01/31/2024 5:15 PM CURING OVEN TENDER Oxygen Saturation 95% 01/31/2024 5:15 PM CURING OVEN TENDER Inhaled Oxygen Concentration - - Weight 96.2 kg (212 lb) 01/31/2024 1:46 PM CURING OVEN TENDER Height 182.9 cm (6') 01/31/2024 1:46 PM CURING OVEN TENDER Body Mass Index 28.75 01/31/2024 1:46 PM CURING OVEN TENDER Plan of Treatment Health Maintenance Due Date [...] CONTRAST Stat with Interpretation 01/31/2024 4:00 PM CURING OVEN TENDER LAVENDER TOP TUBE STAT 01/31/2024 2:0 5 PM CURING OVEN TENDER LAVENDER TOP TUBE STAT 01/31/2024 2:0 5 PM CURING OVEN TENDER LAVENDER TOP TUBE STAT 01/31/2024 2:0 5 PM CURING OVEN TENDER GOLD TOP TUBE STAT 01/31/2024 2:05 PM CURING OVEN TENDER CBC WITH AUTO DIFFERENTIAL STAT 01/31/2024 2:05 PM CURING OVEN TENDER EXTRA TUBES STAT 01/31/2024 2:05 PM CURING OVEN TENDER PROTIME (PT) (PROTHROMBIN TIME) STAT 01/31/2024 2:05 PM CURING OVEN TENDER CMP (COMPREHENSIVE METABOLIC PANEL) STAT 01/31/2024 2:05 PM CURING OVEN TENDER COMPLETE BLOOD COUNT (CBC) WITH DIFF STAT 01/31/2024 2:05 PM CURING OVEN TENDER EKG 12 LEAD STAT 01/31/2024 1:56 PM CURING OVEN TENDER EKG SCAN 01/31/2024 12:00 AM CURING OVEN TENDER RHYTHM STRIP 01/31/2024 12:00 AM CURING OVEN TENDER HEMOGLOBIN, A1C Routine 11/24/2015 from Last 3 Months or Most Recently Relevant to Health Maintenance Results * CT ABDOMEN PELVIS W/O CONTRAST (01/31/2024 4:00 PM CURING OVEN TENDER) Anatomical Region Laterality Modality Abdomen N/A Computed Tomogra phy 01/31/2024 4:49 PM CURING OVEN TENDER Impressions 01/31/2024 4:52 PM CURING OVEN TENDER IMPRESSION: 1. No acute findings of the abdomen or pelvis. 2. Cholelithiasis without evidence of acute cholecystitis. 3. 4.2 cm infrarenal abdominal aortic aneurysm, previously 3.3 cm in 2018. Narrative 01/31/2024 4:52 PM CURING OVEN TENDER EXAM DESCRIPTION: CT ABDOMEN PELVIS W/O CONTRAST [...] Frank Ray M.D. KR: CATALINO Report ID: [id number] Reading Location: [id number] Procedure Note Frank Ray MD - 01/31/2024 [...] Frank Ray M.D. KR: CATALINO Report ID: [id number] Reading Location: [id number] IMPRESSION: 1. No acute findings of the abdomen or pelvis. 2. Cholelithiasis without evidence of acute cholecystitis. 3. 4.2 cm infrarenal abdominal aortic aneurysm, previously 3.3 cm in 2018. us Shree Berg MD IMG CT ORDERABLES Final Result * Gold Top Tube (01/31/2024 2:05 PM CURING OVEN TENDER) Blood No Phlebotomy Charged / Unknown 01/31/2024 2:05 PM CURING OVEN TENDER 01/31/2024 2:26 PM CURING OVEN TENDER us Shree Berg MD CHEMISTRY ORDERABLES Fin al Result Performing Organization Address City/[facility]/ZIP Co de Phone Number [facility] [address] [place] [address] * Lavender Top Tube (01/31/2024 2:05 PM CURING OVEN TENDER) Only the most recent of3 resultswithin the time period is included. Blood No Phlebotomy Charged / Unknown 01/31/2024 2:05 PM CURING OVEN TENDER 01/31/2024 2:26 PM CURING OVEN TENDER us Shree Berg MD HEMATOLOGY ORDERABLES Fi nal Result Performing Organization Address [facility]/ZIP Co de Phone Number [facility] [address] [place] [address] * (ABNORMAL) CBC with Auto Differential (01/31/2024 2:05 PM CURING OVEN TENDER) WBC 8.22 4.00 - 12.00 10(3)/mcL 01/31/2024 2:47 PM CURING OVEN TENDER [facility] RBC 5.50 4.40 - 5.80 10(6)/mcL 01/31/2024 2:47 PM CURING OVEN TENDER [facility] HEMOGLOBIN (HGB) 17.1(H) 13.0 - 16.5 g/dL 01/31/2024 2:47 PM [facility] HEMATOCRIT (HCT) 52.3(H) 38.0 - 50.0 % 01/31/2024 2:47 PM [facility] MCV 95.1 82.0 - 96.0 fL 01/31/2024 2:47 PM [facility] MCH 31.1 26.0 - 32.0 pg 01/31/2024 2:47 PM [facility] MCHC 32.7 31.0 - 36.0 g/dL 01/31/2024 2:47 PM [facility] PLATELET COUNT 159 140 - 440 10(3)/mcL 01/31/2024 2:47 PM [facility] RDW 13.4 11.8 - 15.5 % 01/31/2024 2:47 PM [facility] MPV 11.3 8.0 - 12.6 fL 01/31/2024 2:47 PM [facility] NEUTROPHILS 68.9(H) 40.0 - 68.0 % 01/31/2024 2:47 PM [facility] LYMPHOCYTES 19.0 19.0 - 49.0 % 01/31/2024 2:47 PM [facility] MONOCYTES 10.2 3.0 - 13.0 % 01/31/2024 2:47 PM [facility] EOSINOPHILS 1.5 0.0 - 8.0 % 01/31/2024 2:47 PM [facility] BASOPHILS 0.4 0.0 - 1.0 % 01/31/2024 2:47 PM [facility] ABSOLUTE NEUTROPHILS 5.67(H) 1.40 - 5.30 10(3)/mcL 01/31/2024 2:47 PM [facility] ABSOLUTE LYMPHOCYTES 1.56 0.90 - 3.30 10(3)/mcL 01/31/2024 2:47 PM [facility] ABSOLUTE MONOCYTES 0.84 0.10 - 0.90 10(3)/mcL 01/31/2024 2:47 PM CURING OVEN TENDER [facility] ABSOLUTE EOSINOPHIL 0.12 0.00 - 0.50 10(3)/mcL 01/31/2024 2:47 PM CURING OVEN TENDER [facility] ABSOLUTE BASOPHILS 0.03 0.00 - 0.10 10(3)/mcL 01/31/2024 2:47 PM CURING OVEN TENDER [facility] NRBC PER 100 WBC 0 01/31/20 2:47 PM CURING OVEN TENDER [facility] Blood Venipuncture / Unknown 01/31/2024 2:05 PM CURING OVEN TENDER 01/31/2024 2:24 PM CURING OVEN TENDER Shree Berg MD HEMATOLOGY ORDERABLES Fi nal Result Performing Organization Address [facility] Co de Phone Number [facility] [address] [place] [address] * Protime (PT or Prothrombin Time) [id number] (01/31/2024 2:05 PM CURING OVEN TENDER) PROTIME-PATIENT 14.4 11.6 - 14.8 sec 01/31/2024 2:51 PM CURING OVEN TENDER [facility] INR 1.1 0.9 - 1.2 01/31/2024 2:51 PM CURING OVEN TENDER [facility] Comment: Therapeutic Ranges INR = 2.0-3.0: Venous thromb, atrial fib, pul embolism, tissue heart valve, ami. INR = 2.5-3.5: Mechanical heart valve Critical value for INR is >/= 4.5 Blood Venipuncture / Unknown 01/31/2024 2:05 PM CURING OVEN TENDER 01/31/2024 2:24 PM CURING OVEN TENDER us Shree Berg MD HEMATOLOGY ORDERABLES Fi nal Result Performing Organization Address [facility]/ZIP Co de Phone Number [facility] [address] [place] [address] * (ABNORMAL) Comprehensive Metabolic Panel (Cmp) [id number] (01/31/2024 2:[address] [facility]) SODIUM 141 136 - 145 mmol/L 01/31/2024 2:49 PM [facility] POTASSIUM 4.1 3.5 - 5.1 mmol/L 01/31/2024 2:49 PM [facility] CHLORIDE 107 98 - 107 mmol/L 01/31/2024 2:49 PM [facility] CO2, VENOUS 26 22 - 30 mmol/L 01/31/2024 2:49 PM [facility] ANION GAP 12.1 <18.0 mmol/L 01/31/2024 2:49 PM [facility] GLUCOSE 134(H) 70 - 99 mg/dL 01/31/2024 2:49 PM [facility] BUN 12 8 - 26 mg/dL 01/31/2024 2:49 PM [facility] CREATININE, BLOOD 1.74(H) 0.70 - 1.30 mg/dL 01/31/2024 2:49 PM [facility] BUN/CREATININE RATIO 7(L) 12 - 20 ratio 01/31/2024 2:49 PM [facility] TOTAL PROTEIN 7.1 6.3 - 8.2 g/dL 01/31/2024 2:49 PM [facility] ALBUMIN 3.6 3.5 - 5.0 g/dL 01/31/2024 2:49 PM [facility] A/G RATIO 1.0 1.0 - 2.2 01/31/2024 2:49 PM [facility] CALCIUM 9.1 8.7 - 10.5 mg/dL 01/31/2024 2:49 PM [facility] T BILI 0.9 0.2 - 1.2 mg/dL 01/31/2024 2:49 PM [facility] SGOT (AST) 25 5 - 34 U/L 01/31/2024 2:49 PM [facility] SGPT (ALT) 34 0 - 55 U/L 01/31/2024 2:49 PM CURING OVEN TENDER [facility] ALKALINE PHOSPHATASE 53 40 - 150 U/L 01/31/2024 2:49 PM CURING OVEN TENDER [facility] GFR, ESTIMATED 40(L) >=60 01/31/2024 2:49 PM CURING OVEN TENDER [facility] Comment: Creatinine Clearance is the preferred criteria for selecting drug dose adjustments in renally impaired patients. The GFR is provided as additional pertinent clinical information. GFR is reported in mL/min/1.73 sq m. Calculation based on the Chronic Kidney Disease Epidemiology Collaboration (CKD- EPI) equation refit without adjustment for race. GFR, EST. 46(L) >=60 024 2:49 PM CURING OVEN TENDER [facility] GFR, EST. NONAFRICAN 38(L) >=60 01/31/2024 2:49 PM CURING OVEN TENDER [facility] Blood Venipuncture / Unknown 01/31/2024 2:05 PM CURING OVEN TENDER 01/31/2024 2:24 PM CURING OVEN TENDER us Shree Berg MD CHEMISTRY ORDERABLES Fin al Result [facility] [address] [place] [address] * EKG 12 LEAD (01/31/2024 1:56 PM CURING OVEN TENDER) Ventricular Rate 78 BPM EXTERNAL EKG Atrial Rate 78 BPM EXTERNAL EKG P-R Interval 240 ms EXTERNAL EKG QRS Duration 162 ms EXTERNAL EKG Q-T Duration 458 ms EXTERNAL EKG QTC CALCULATION 522 ms EXTERNAL EKG P [place] 56 degrees EXTERNAL EKG R [place] 233 degrees EXTERNAL EKG T [place] 36 degrees EXTERNAL EKG 01/31/2024 1:56 PM CURING OVEN TENDER Impressions EXTERNAL EKG - 02/01/2024 3:05 PM CURING OVEN TENDER Atrial-sensed ventricular-paced rhythm with prolonged AV conduction Abnormal ECG When compared with ECG of 20-APR-2023 10:06, Vent. rate has increased BY 6 BPM Confirmed by Harjai, Manuel ([id number]) on 02/01/2024 3:05:57 PM Narrative Procedure Note Manuel Anthony MD - 02/01/2024 IMPRESSION: Atrial-sensed ventricular-paced rhythm with prolonged AV conduction Abnormal ECG When compared with ECG of 20-APR-2023 10:06, Vent. rate has increased BY 6 BPM Confirmed by Manuel Anthony ([id number]) on 02/01/2024 3:05:57 PM us Shree Berg MD IMG ECG ORDERABLES Final Result Performing Organization Address City/[facility]/ZIP Co de Phone Number EXTERNAL EKG * RHYTHM STRIP (01/31/2024 12:00 AM CURING OVEN TENDER) 01/31/2024 us Provider Scan IMG ECG ORDERABLES Final Result Performing Organization Address City/[facility] Co de Phone Number RESULTING AGENCY * EKG SCAN (01/31/2024 12:00 AM CURING OVEN TENDER) 01/31/2024 us Provider Scan IMG ECG ORDERABLES Final Result Performing Organization Address [facility] Co de Phone Number RESULTING AGENCY * HEMOGLOBIN, A1C (11/24/2015) HGB-A1C 6.4 % Blood specimen (specimen) us Ralph Holland MD CHEMISTRY ORDERABLES Edited Re sult - Final from Last 3 Months or Most Recently Relevant to Health Maintenance Insurance MEDICARE C [facility] Member Subscriber Plan / Payer (Ef fective 2022-Present) Name:Brock Lovett Relation to Subscriber:Self Name:Brock Lovett Payer ID:[id number] (NAIC) Type:Not on file Address: [place] [phone] Care Teams Manager Environmental Health And Safety Relationship Specialty Start Date End Date Ralph Holland MD [address] [place], [place] [phone] PCP - General Internal Medicine 11/24/15
--- OUTSIDE RECORDS SUMMARY | 2024-04-26 14:46 | XMS_ITS | Clinical Summary ---
Author Organization [facility] Indira Benjamin Address [address] [facility] [place] [address] Care Team Providers Care Ocean Freight Forwarder Name Role Phone Ralph Holland MD Primary [...] tablet Take 2 mg by mouth. Active caxvg-5-pme-epa -dpa-fish oil 1,050-1,200 mg Capsule 1 Capsule. [...] mEq by mouth daily with breakfast. Active vericiguat (VERQUVO ORAL) Take by mouth daily. Active solifenacin (VESICARE) 10 mg Tablet Take 10 mg by mouth daily. Active Active Problems No known active problems Encounters Date Type Department Care Team Description 04/26/2024 1:00 PM CDT Office Visit [facility] [place] [address] [place] [address] Grayson Vazquez MD Neuroendocrine tumor (CMS/HCC) (Primary Dx) 04/21/2024 External Device Data STL ABSTRACTION Provider, Abstract 04/20/2024 External Device Data STL ABSTRACTION Provider, Abstract 04/18/2024 Orders Only [facility] [place] [address] [place] [address] Grayson Vazquez MD 04/18/2024 Abstract [facility] [place] [address] [place] [address] Grayson Vazquez MD 04/17/2024 Orders Only [facility] [place] [address] [place] [address] Grayson Vazquez MD 04/03/2024 External Device Data STL ABSTRACTION Provider, Abstract 03/07/2024 External Device Data STL ABSTRACTION Provider, Abstract 03/06/2024 External Device Data STL ABSTRACTION Provider, Abstract from Last 3 Months Family History Medical [...] Sign Reading Time Taken Comments Blood Pressure 129/84 04/26/2024 1:34 PM CDT Pulse 71 04/26/2024 1:34 PM CDT Temperature 36.2 C (97.1 F) 04/26/2024 1:34 PM CDT Respiratory Rate 15 04/26/2024 1:34 PM CDT Oxygen Saturation 97% 04/26/2024 1:34 PM CDT Inhaled Oxygen Concentration - - Weight 91.8 kg (202 lb 6.4 oz) 04/26/2024 1:34 P M CDT Height 182.9 cm (6') 12/08/2021 11:20 AM CDT Body Mass Index 27.45 12/08/2021 11:20 AM CDT Plan of Treatment Upcoming Encounters Date Type Department Care Team (Late st Contact Info) Description 11/05/2024 11:00 AM CDT Office Visit [facility] [place] [address] [place] [address] [facility] [address] [place] [address] Grayson Vazquez MD [address] [facility] [address] [place] [address] Health Maintenance Due Date Last Done Comments DIABETES ANNUAL FOOT EXAM 1964 DIABETES ANNUAL RETINAL EXAM 1964 DIABETES MICROALBUMIN ANNUAL SCREEN 1964 LDL CHOLESTEROL ANNUAL 1964 DTAP/TDAP/TD VACCINES (1 - Tdap) 1965 ZOSTER VACCINE (1 of 2) 1996 DIABETES HBA1C Q 6 MONTHS 11/05/2015 05/05/2015 PNEUMOCOCCAL VACCINE 50+ YEA RS (2 of 2 - PCV) 11/15/2015 11/14/2014 RSV VACCINE (60+ or ) (1 - 1-dose 75+ series) 2021 INFLUENZA VACCINE (#1) 2023 , 01/02/2020, 12/08/2018, Additional history exists COVID-19 Vaccine (3 - 2023-2 5 season) 2023 05/04/2020, 04/13/2020 Medicare [place] ([place]) Preventative Visit/Annual Wellness Visit 02/15/2024 Procedures Procedure Name Priority Date/Time Associated Diagnosis Comments CT ABDOMEN PELVIS W WO CONTRAST Routine 04/16/2024 2:32 PM MECHANICAL ENGINEERING OFFICER CBC WITH DIFFERENTIAL Routine 04/10/2024 12:53 PM MECHANICAL ENGINEERING OFFICER ERYTHROPOIETIN LEVEL Routine 04/10/2024 10:41 AM MECHANICAL ENGINEERING OFFICER from Last 3 Months Results * CT ABDOMEN PELVIS W WO CONTRAST (04/16/2024 2:32 PM MECHANICAL ENGINEERING OFFICER) Anatomical Region Laterality Modality Abdomen Other us Grayson Vazquez MD CT ORDERABLES Final Result * CBC WITH DIFFERENTIAL (04/10/2024 12:53 PM MECHANICAL ENGINEERING OFFICER) Blood us Grayson Vazquez MD HEMATOLOGY ORDERABLES Final Res ult * ERYTHROPOIETIN LEVEL (04/10/2024 10:41 AM MECHANICAL ENGINEERING OFFICER) Blood us Grayson Vazquez MD CHEMISTRY ORDERABLES Final Resu lt from Last 3 Months Insurance [facility] [id number] [facility] Address: [facility] [address] [place] [address] [facility] [id number] Care Teams Ocean Freight Forwarder Relationship Specialty Start Date End Date Ralph Holland MD [address] [place] [address] PCP - General Internal Medicine 09/01/22
--- OUTSIDE RECORDS SUMMARY | 2024-04-26 14:46 | XMS_ITS | Referral Summary ---
Author Organization [facility] Address [address] [place] [address] Care Team Providers Care Mat Inspector Name Role Phone Ralph Holland MD Primary Care Provider [phone] Source Comments [facility],non-owned Affiliates and Associated Physician Practices is [facility] site organization consisting of ambulatory clinics and hospital sitesin [place], [place], [place] and [place]. This disclosure is being madepursuant to the Care Everywhere program and may not contain all information available regarding this patient. Last updated 17.[facility] Social History Tobacco Use Types Packs/Day Years Used Date Smoking Tobacco: Never Assessed Sex and Gender Information Value Date Recorded Sex Assigned at Not on file Gender Identity Not on file Sexual Orientation Not on file Plan of Treatment Not on file Care Teams Mat Inspector Relationship Specialty Start Date End Date Ralph Holland MD [address] [place] [phone] PCP - General 04/17/18
--- OUTSIDE RECORDS SUMMARY | 2024-04-26 14:46 | XMS_ITS | Encounter Summary ---
Author Organization [facility] Address [address] [place] [address] Care Team Providers Care Key Account Director Name Role Phone Ralph Holland MD Primary Care Provider + Reason for Visit * Reason Comments Follow Up Cancer Encounter Details Date Type Department Care Team (Late st Contact Info) Description 04/26/2024 1:00 PM CDT Office Visit [facility] Oncology and Hematology [facility] [place] [address] [facility] [address] [place] [address] Grayson Vazquez MD [address] [facility] [address] [place] [address] Neuroendocrine tumor (CMS/HCC) (Primary Dx) Social History Tobacco Use Types Packs/Day Years [...] on file documented as of this encounter Last Filed Vital Signs Vital Sign Reading [...] oz) 04/26/2024 1:34 P M CDT Height - - Body Mass Index 27.45 12/08/2021 11:20 AM CDT documented in this encounter Progress Notes * Grayson Vazquez MD - 04/26/2024 1:36 PM CDT HEMATOLOGY / ONCOLOGY PROGRESS NOTE Patient Identification: Name: Brock Lovett Age: 78 y.o. 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 Erythrocytosis CURRENT TREATMENT Periodic phlebotomy TREATMENT HISTORY SUBJECTIVE Patient came to the office for follow-up visit. He denies any chest pain and shortness of breath. He denies any bleeding and bruising. He has lost 10 pound weight. Denies any diarrhea. No facial flushing. No other new complaints. Review of system Constitutional: Patient did not mention fevers, sweats, 10 pound weight loss, denies any tiredness and fatigue HEENT: Patient did not mention sinus congestion, hearing or vision problems Respiratory: Patient did not mention cough, dyspnea, wheeze Cardiovascular: Patient did not mention chest pain, exertional chest pressure/discomfort, nausea, syncope, shortness of breath GI: Patient did not mention diarrhea, dsyphagia, reflux symptoms, vomiting, melena, occasional constipation : Patient did not mention dysuria, frequency, incontinence, urgency Integumentary system: no lymphadenopathy, sweats, flushing Musculoskeletal: Patient not mention: myalgia, arthralgia Neurological: Patient did not mention blurry or disturbed vision, numbness/weakness, dizziness Skin: No lumps, bumps or rashes. 12 point review of system was reviewed Objective: Vital signs in last 24 hours: As per nursing note Exam: General appearance: alert, cooperative, no distress, appears stated age Head: normocephalic, without obvious abnormality, atraumatic Eyes: conjunctivae/corneas clear, EOM's intact Ears: normal external ear canals AU Nose: Nares normal. Septum midline. Mucosa normal. No drainage or sinus tenderness Throat: Lips, mucosa, and tongue normal. Teeth and gums normal Neck: supple, symmetrical, trachea midline. Lungs: clear to auscultation bilaterally Heart: regular rate and rhythm, S1, S2 normal, no murmur, click, rub or gallop Abdomen: soft, non-tender. Bowel sounds normal. No masses, No organomegaly Extremities: extremities normal, atraumatic, no cyanosis or edema Skin: Skin color, texture, turgor normal. No rashes or lesions Lymph nodes: No lymphadenopathy Neuro: No obvious focal deficit Exam as above PATH LABS Labs from October 29 showed hematocrit 52.9 WBC 12.9 platelet 170,000 creatinine 1.5 serotonin from June 2022 was low at 48 Labs from February 24 showed creatinine 1.3 total bilirubin 1.0 WBC 10.4 hemoglobin 17.8 hematocrit 54.3 platelet 175,000 Labs from June 22 showed creatinine 1.5 calcium 9.2 total bilirubin 0.8 hemoglobin 16.5 hematocrit 50.7 Labs from December 29 showed hemoglobin 17.2 hematocrit 52.5 serotonin 68 Labs from April 26 showed hemoglobin 16.8 hematocrit 50.3 creatinine 1.9 erythropoietin 17.8 ferritin 72 Assessment: Plan: There are no active problems to display for this patient. 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 EGD was performed that showed duodenal polyp and biopsy was taken on May 24 that showed well-differentiated neuroendocrine tumor. Patient was referred to Dr. [facility] an at [facility] for endoscopic[facility]section. EGD and resection was attempted on June 15. Mucosal resection was performed but resection was incomplete due to its firm nature . PET dotatate scan was done on July 15 that showed no metastatic disease. Patient remains clinically asymptomatic. Serotonin is normal. CT scan abdomen and pelvis done on April 16 showed no evidence of relapse of malignancy. At this time I will see him back in 6 months withrepeat serotonin and chromogranin. Imaging studies will be done on based on the symptoms. Right sided renal mass. Erythropoietin level came back normal. CT scan showed 1.7 cm cyst in the right kidney. No further evaluation needed. 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 Hematocrit is stable after the phlebotomy 3 months ago. He will continue baby aspirin. He will come back in 3 months for possible phlebotomy in 6 months for follow-up. 04/26/2024 Grayson Vazquez MD documented in this encounter Plan of Treatment Upcoming Encounters Date Type Department Care Team (Late st Contact Info) Description 11/05/2024 11:00 AM CDT Office Visit [facility] Oncology and Hematology [facility] [address] [place] [address] Grayson Vazquez MD [address] [facility] [address] [place] [address] Scheduled Orders Name Type Priority Associated Diagnoses Orde r Schedule CBC WITHOUT DIFFERENTIAL Lab Stat Neuroendocrine tumor (CMS/HCC) Expected: 10/27/2024, Expires: 04/26/2025 COMPREHENSIVE METABOLIC PANEL Lab Stat Neuroendocrine tumor (CMS/HCC) Expected: 10/27/2024, Expires: 04/26/2025 SEROTONIN LEVEL Lab Routine Neuroendocrine tumor (CMS/HCC) Expected: 04/26/2024, Expires: 10/23/2024 CHROMOGRANIN A Lab Routine Neuroendocrine tumor (CMS/HCC) Expected: 04/26/2024, Expires: 10/23/2024 documented as of this encounter Visit Diagnoses Diagnosis Neuroendocrine tumor (CMS/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
--- OUTSIDE RECORDS SUMMARY | 2024-04-26 14:46 | XMS_ITS | Clinical Summary ---
Author Organization [facility] Address [address] [place] [address] Care Team Providers Care Barn Manager Name Role Phone Ralph Holland MD Primary Care Provider [phone] Source Comments [facility],non-owned Affiliates and Associated Physician Practices is amultiple site organization consisting of ambulatory clinics and hospital sitesin [place], [place], [place] and [place]. This disclosure is being madepursuant to the Care Everywhere program and may not contain all information available regarding this patient. Last updated 17.[facility] Social History Tobacco Use Types Packs/Day Years [...] to complete this topic MENINGOCOCCAL (Group B) VACC INE SHARED DECISION-MAKING Aged Out No longer eligibl e based on patient's age to complete this topic MENINGOCOCCAL GROUPS A/C/Y/W VACCINE Aged Out No longer eligible b ased on patient's age to complete this topic Care Teams Barn Manager Relationship Specialty Start Date End Date Ralph Holland MD [address] [place] [address] PCP - General 04/17/18
[2024-04-26 16:40] LABS: Alanine Aminotransferase 26 U/L (6-50); Albumin Level 3.9 g/dL (3.5-5.1); Alkaline Phosphatase 53 U/L (38-126); Anion Gap 11 mmol/L (4-12); Aspartate Amino Transferase 24 U/L (17-59); Bilirubin,Total 0.6 mg/dL (0.2-1.3); Blood Urea Nitrogen 21 mg/dL (9-20); Calcium 9.3 mg/dL (8.4-10.2); Carbon Dioxide 24 mmol/L (22-30); Chloride 102 mmol/L (98-107); Estimated Glomerular Filt Rate 40; Glucose 103 mg/dL (65-110); Potassium 4.3 mmol/L (3.4-5.0); Sodium 137 mmol/L (137-145)
== END 2024-04-26 13:11 | disposition home or self-care (01) ==
LOC: ANHLAB 13:12
PROVIDERS: PCP Internal Medicine; Visit Provider Internal Medicine Hematology & Oncology
DX: D3A.8 Other benign neuroendocrine tumors (principal)
CPT/HCPCS: 36415; 80047; 80053; 85025

== ENCOUNTER 2024-10-31 13:06 | Outpatient (CLI) | payer MEDICARE, SELFPAY ==
[2024-10-31 13:21] LABS: Hematocrit 50.4 % (42.0-52.0); Hemoglobin 16.5 g/dL (14.0-18.0); Mean Corpuscular HGB Conc 32.7 g/dl (32-36); Mean Corpuscular Hemoglobin 31.9 pg (26-34); Mean Corpuscular Volume 97.3 fl (80-100); Platelet Count Result 165 k/mm3 (150-375); Red Blood Count 5.18 M/mm3 (4.6-6.20); White Blood Count 10.0 K/mm3 (4.5-10.0)
[2024-10-31 17:13] LABS: Alanine Aminotransferase 43 U/L (6-50); Albumin Level 3.8 g/dL (3.5-5.1); Alkaline Phosphatase 72 U/L (38-126); Anion Gap 7 mmol/L (4-12); Aspartate Amino Transferase 66 U/L (17-59); Bilirubin,Total 0.8 mg/dL (0.2-1.3); Blood Urea Nitrogen 17 mg/dL (9-20); Calcium 9.5 mg/dL (8.4-10.2); Carbon Dioxide 30 mmol/L (22-30); Chloride 101 mmol/L (98-107); Estimated Glomerular Filt Rate 46; Glucose 147 mg/dL (65-110); Potassium 4.7 mmol/L (3.4-5.0); Sodium 138 mmol/L (137-145); Total Protein 7.5 g/dL (6.3-8.2)
== END 2024-10-31 13:07 | disposition home or self-care (01) ==
LOC: ANHLAB 13:07
PROVIDERS: PCP Internal Medicine; Visit Provider Internal Medicine Hematology & Oncology
DX: D3A.8 Other benign neuroendocrine tumors (principal)
CPT/HCPCS: 36415; 80053; 85027

== ENCOUNTER 2024-11-05 11:21 | Outpatient (CLI) | payer MEDICARE, SELFPAY ==
--- OUTSIDE RECORDS SUMMARY | 2024-11-05 11:00 | XMS_ITS | Encounter Summary ---
Author Organization [facility] [employer] [facility] Address [address] [place] [address] Care Team Providers Care Tip Stitcher Name Role Phone Ralph Holland MD Primary Care Provider + Reason for Referral * CT Scan (Urgent) - Authorized Specialty Diagnoses / Procedures Referred By Contac t Referred To Contact Diagnoses Neuroendocrine tumor (CMS/HCC) Procedures CT ABDOMEN PELVIS W CONTRAST Grayson Vazquez MD [address] [place] [address] Phone: tel: fax: Referral ID Status Reason Start Date Expiration Date V isits Requested Visits Authorized [id number] Authorized 11/05/2024 12/06/2025 1 1 Reason for Visit * Reason Comments Cancer Follow Up Encounter Details Date Type Department Care Team (Late st Contact Info) Description 11/05/2024 11:00 AM CDT Office Visit [facility] Oncology and Hematology - [place] [facility] [address] [facility] [address] [place] [address] Grayson Vazquez MD [address] [place] [address] Neuroendocrine tumor (CMS/HCC) (Primary Dx) [...] Sign Reading Time Taken Comments Blood Pressure 127/87 11/05/2024 10:50 AM CDT Pulse 70 11/05/2024 10:50 AM CDT Temperature 36.1 C (97 F) 11/05/2024 10:50 AM CDT Respiratory Rate 15 11/05/2024 10:50 AM CDT Oxygen Saturation 98% 11/05/2024 10:50 AM CDT Inhaled Oxygen Concentration - - Weight 83.1 kg (183 lb 3.2 oz) 11/05/2024 10:50 AM CDT Height - - Body Mass Index 24.85 12/08/2021 11:20 AM CDT documented in this encounter Progress Notes * Gryason Vazquez MD - 11/05/2024 11:08 AM CDT HEMATOLOGY / ONCOLOGY PROGRESS NOTE Patient Identification: Name: Brock Lovett Age: 79 y.o. 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 Erythrocytosis CURRENT TREATMENT Periodic phlebotomy TREATMENT HISTORY SUBJECTIVE Patient came into the office for follow-up visit. He denies any chest pain and abdominal pain. Denies any night sweats fevers and chills. He has lost 19 pound weight. Denies any melena and hematochezia. He was recently diagnosed with extensive DVT of the right lower extremity on October 23, 2024. No other new complaint. Review of system Constitutional: Patient did not mention fevers, sweats, 19 pound weight loss, denies any tiredness and [...] 50.3 creatinine 1.9 erythropoietin 17.8 ferritin 72 Labs from October 31 showed creatinine 1.4 bilirubin 0.8 hemoglobin 16.5 hematocrit 50.4 Assessment: Plan: There are no active problems to display for this patient. 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 EGD was performed that showed duodenal polyp and biopsy was taken on May 24 that showed well-differentiated neuroendocrine tumor. Patient was referred to Dr. Diana an at [facility] for endoscopicresection. EGD and resection was attempted on June 15. Mucosal resection was performed but resection was incomplete due to its firm nature . PET dotatate scan was done on July 15 that showed no metastatic disease. Events noted. He was diagnosed with unprovoked right lower extremity DVT on October 23. He is clinically asymptomatic. I will order CT abdomen and pelvis as well as serotonin and chromogranin level today. Phone visit in 1 week. Right sided renal mass. CT scan showed 1.7 cm cyst in the right kidney. We will repeat CT scan now. Patient remains clinically asymptomatic. Serotonin is normal. [...] the right kidney. No further evaluation needed. Unprovoked extensive DVT of the right lower extremity. Patient presented with right lower extremityswelling on October 23, 2024 that showed extensive DVT of the right lower extremity. He has no previous history of thromboembolic events. Patient was started on Eliquis with improvement in the rightlower extremity edema. He will continue long-term anticoagulation therapy due to unprovoked nature of the DVT. Erythrocytosis likely secondary to sleep apnea and obesity. He has lost weight. Hematocrit stable. No need for phlebotomy. Patient is currently on Eliquis and aspirin has been discontinued. Phone visit in [address] scan and tumor markers. 11/05/2024 Grayson Vazquez MD documented in this encounter Plan of Treatment Upcoming Encounters Date Type Department Care Team (Late st Contact Info) Description 11/12/2024 4:30 PM CDT Telephone Check Up [facility] Oncology and Hematology - [place] [address] [place] [address] Grayson Vazquez MD [address] [facility] [address] [place] [address] Scheduled Orders Name Type Priority Associated Diagnoses Orde r Schedule CT ABDOMEN PELVIS W CONTRAST Imaging Stat Neuroendocrine tumor (CMS/HCC) Expected: 11/06/2024, Expires: 11/05/2025 CHROMOGRANIN A Lab Routine Neuroendocrine tumor (CMS/HCC) Expected: 11/05/2024, Expires: 05/04/2025 SEROTONIN LEVEL Lab Routine Neuroendocrine tumor (CMS/HCC) Expected: 11/05/2024, Expires: 05/04/2025 documented as of this encounter Visit Diagnoses Diagnosis Neuroendocrine tumor (CMS/HCC)- 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
--- OUTSIDE RECORDS SUMMARY | 2024-11-05 12:34 | XMS_ITS | Encounter Summary ---
Author Organization [facility] Address [address] [place] [address] Phone Care Team Providers Care Services Host Name Role Phone Ralph Holland MD Primary Care Provider [phone] Reason for Visit * Reason Onset Date Comments Advice Only 09/03/2024 Encounter Details Date Type Department Care Team (Late st Contact Info) Description 09/03/2024 Telephone [facility] [address] [place] [phone] Ralph Holland MD [address] [place] [id number] Advice Only Social History Tobacco Use Types Packs/Day Years Used Date Smoking Tobacco: Never Smokeless Tobacco: Former Comments:QUIT CHEWING YRS AG O Alcohol Use Standard Drinks/Week Comments No 0 (1 standard drink = 0.6 oz pur e alcohol) occasional drink Social Connection and Isolation Panel Answer Date Recorded In a typical week, how many times do you talk on the phone with family, friends, or neighbors? More than three times a week 08/31/2024 How often do you get togethe r with friends or relatives? More than three times a week 08/31/2024 How often do you attend [facility] or hoahaoism services? Never 08/31/2024 Do you belong to any clubs o r organizations such as latter-day groups, unions, fraternal or athletic groups, or school groups? No 08/31/2024 How often do you attend meet ings of the clubs or organizations you belong to? Never 08/31/2024 Are you , , di vorced, , never , or living with a partner? 08/31/2024 AUDIT-C Answer Date Recorded Q1: How often do you have a drink containing alcohol? Never 08/31/2024 Q2: How many drinks containi ng alcohol do you have on a typical day when you are drinking? Patient does not drink Q3: How often do you have si x or more drinks on one occasion? Never 08/31/2024 Overall Financial Resource Strain (CARDIA) Answe r Date Recorded How hard is it for you to pa y for the very basics like food, housing, medical care, and heating? Not hard at all 08/31/2024 [facility] - Occupational Stress Questionnaire Answer Date Recorded Do you feel stress - tense, restless, nervous, or anxious, or unable to sleep at night because your mind is troubled all the time - these days? Not at all 08/31/2024 Exercise Vital Sign Answer Date Recorde d On average, how many days pe r week do you engage in moderate to strenuous exercise (like a brisk walk)? 0 days 08/31/2024 On average, how many minutes do you engage in exercise at this level? 0 min 08/31/2024 Hunger Vital Sign Answer Date Recorded Within the past 12 months, y ou worried that your food would run out before you got the money to buy more. Never true 09/01/19 25 Within the past 12 months, t he food you bought just didn't last and you didn't have money to get more. Never true 08/31/2024 [facility] - Transportation Answer Date Re corded In the past 12 months, has l ack of transportation kept you from medical appointments or from getting medications? No 08/14 In the past 12 months, has l ack of transportation kept you from meetings, work, or from getting things needed for daily living? No 08/31/2024 Housing Stability Vital Sign Answer Ankur e Recorded In the last 12 months, was t here a time when you were not able to pay the mortgage or rent on time? No 08/31/2024 In the past 12 months, how m any times have you moved where you were living? 0 08/31/2024 At any time in the past 12 m [facility], were you homeless or living in a mcc (including now)? No 08/31/2024 [facility] Utilities Answer Date Recorded In the past 12 months has th e electric, gas, oil, or water company threatened to shut off services in your home? No 08/31/2024 Sexually Active Control Partners Comments Yes Female Sex and Gender Information Value Date Recorded Sex Assigned at Not on file Legal Sex Male 10:39 PM CDT Gender Identity Not on file Sexual Orientation Not on file Occupation Industry Job Start Date Job End Date retired from [employer] Not on file Not on file Not o n file documented as of this encounter Miscellaneous Notes * Telephone Encounter - Angeles Perez - 09/03/2024 2:58 PM CDT Symptom: Low Blood Pressure - Caller Reports Outcome: Transfer to service delivery analyst queue Reason: Sudden decrease within the past 24 hours The caller accepted this outcome. Caller Denied: * Passed out documented in this encounter Plan of Treatment Upcoming Encounters Date Type Department Care Team (Late st Contact Info) Description 12/20/2024 10:30 AM SUPERVISOR WARPING DEPARTMENT Office Visit [facility] - [facility], Nose & [facility] - [place] [address] [facility] [place] [phone] Lina Tang MD [address] [facility] [address] [phone] documented as of this encounter Visit Diagnoses Not on filedocumented in this encounter Care Teams Services Host Relationship Specialty Start Date End Date Ralph Holland MD PCP - General Internal Medicine 11/24/15 documented as of this encounter
--- OUTSIDE RECORDS SUMMARY | 2024-11-05 12:34 | XMS_ITS | Encounter Summary ---
Author Organization [facility] Healthcare Address [address] [place] [address] Care Team Providers Care Real Estate Sales Manager Name Role Phone Ralph Holland MD Primary Care Provider [phone] Miscellaneous, Not In File Unavailable Unava ilable Encounter Details Date Type Department Care Team (Late st Contact Info) Description 08/06/2024 Orders Only [facility] Health Information Management [address] [place] [id number] Scanning, Provider Social History Tobacco Use Types Packs/Day Years [...] file 03/2022 Personal Safety Answer Date Recorded Have you ever been in or are you currently in a harmful physical or emotional relationship or is someone making you feel afraid or unsafe? 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 Gender Identity Male 08/06/2020 10:27 AM CDT Sexual Orientation Not on file documented as of this encounter Plan of Treatment Not on file documented as of this encounter Procedures Procedure Name Priority Date/Time Associated Diagnosis Comments SCAN - LABS 08/06/2024 documented in this encounter Results * SCAN - LABS (08/06/2024) us Provider Scanning Final Result documented in this encounter Visit Diagnoses Not on filedocumented in this encounter Care Teams Real Estate Sales Manager Relationship Specialty Start Date End Date Ralph Holland MD [address] [place] [address] PCP - General Internal Medicine 04/14/17 Miscellaneous, Not In File 08/19/20 documented as of this encounter
--- OUTSIDE RECORDS SUMMARY | 2024-11-05 12:34 | XMS_ITS | Clinical Summary ---
Author Organization [facility] Indira Benjamin Address [address] [place] [place] [address] Care Team Providers Care In Service Education Teacher Name Role Phone Ralph Holland MD [...] tablet Take 2 mg by mouth. Active krrtb-1-fyh-epa -dpa-fish oil 1,050-1,200 mg Capsule 1 Capsule. [...] Take 10 mg by mouth daily. Active apixaban (ELIQUIS) 5 mg tablet Take 5 mg by mouth 2 times daily. 10/25/2024 Active Active Problems No known active problems Encounters Date Type Department Care Team Description 11/05/2024 11:00 AM CDT Office Visit [facility] Oncology and Hematology [facility] [address] [place] [phone] Grayson Vazquez MD Neuroendocrine tumor (CMS/HCC) (Primary Dx) 11/01/2024 Orders Only [facility] Oncology [facility] [address] [place] [phone] Grayson Vazquez MD 10/30/2024 External Device Data STL ABSTRACTION Provider, Abstract 10/30/2024 External Device Data STL ABSTRACTION Provider, Abstract 10/02/2024 External Device Data STL ABSTRACTION Provider, Abstract 10/02/2024 External Device Data STL ABSTRACTION Provider, Abstract 08/29/2024 External Device Data STL ABSTRACTION Provider, Abstract 08/29/2024 External Device Data STL ABSTRACTION Provider, Abstract 08/29/2024 External Device Data STL ABSTRACTION Provider, Abstract 08/28/2024 External Device Data STL ABSTRACTION Provider, Abstract 08/06/2024 Orders Only [facility] Oncology and Hematology [facility] [address] [place] [phone] Grayson Vazquez MD from Last 3 Months Family History Medical [...] 3.2 oz) 11/05/2024 10:50 AM CDT Height 182.9 cm (6') 12/08/2021 11:20 AM CDT Body Mass Index 24.85 12/08/2021 11:20 AM CDT Plan of Treatment Upcoming Encounters Date Type Department Care Team (Late st Contact Info) Description 11/12/2024 4:30 PM CDT Telephone Check Up [facility] Oncology and Hematology - [place] [address] [facility] [address] [place] [address] Grayson Vazquez MD [address] [facility] [address] [place] [address] Health Maintenance Due Date Last Done Comments DIABETES ANNUAL FOOT EXAM 1964 DIABETES ANNUAL RETINAL EXAM 1964 DIABETES MICROALBUMIN ANNUAL SCREEN 1964 LDL CHOLESTEROL ANNUAL 1964 DTAP/TDAP/TD VACCINES (1 - Tdap) 1965 ZOSTER VACCINE (1 of 2) 1996 RSV VACCINE (60+ or ) (1 - 1-dose 75+ series) 2021 [place] Preventative Visit/Annual Wellness Visit 02/15/2024 COVID-19 Vaccine (3 - 2024-2 6 season) 2024 05/04/2020, 04/13/2020 DIABETES HBA1C Q 6 MONTHS 03/03/2025 08/31/2024 PNEUMOCOCCAL VACCINE 50+ YEARS Completed 09/01/2024 , 11/14/2014 INFLUENZA VACCINE Completed 10/24/2024, , 01/02/2020, Additional history exists Procedures Procedure Name Priority Date/Time Associated Diagnosis Comments COMPREHENSIVE METABOLIC PANEL Routine 10/31/2024 2:56 PM CDT CBC WITH AUTODIFFERENTIAL Routine 2024 12:52 PM CDT CBC WITH DIFFERENTIAL Routine 08/06/2024 12:30 PM CDT from Last 3 Months Results * COMPREHENSIVE METABOLIC PANEL (10/31/2024 2:56 PM CDT) Blood us Grayson Vazquez MD CHEMISTRY ORDERABLES Final Resu lt * CBC WITH AUTODIFFERENTIAL (10/31/2024 12:52 PM CDT) Blood us Grayson Vazquez MD HEMATOLOGY ORDERABLES Final Res ult * CBC WITH DIFFERENTIAL (08/06/2024 12:30 PM CDT) Blood us Grayson Vazquez MD HEMATOLOGY ORDERABLES Final Res ult from Last 3 Months Insurance [facility] [id number] Care Teams In Service Education Teacher Relationship Specialty Start Date End Date Ralph Holland MD [address] [place] [phone] PCP - General Internal Medicine 09/01/22
--- OUTSIDE RECORDS SUMMARY | 2024-11-05 12:34 | XMS_ITS | Clinical Summary ---
Author Organization [facility] Address [address] [place] [address] Phone Care Team Providers Care Cd Mixer Helper Name Role Phone Ralph Holland MD Primary Care Provider [phone] Allergies Active Allergy Reactions Criticality Noted Date Comments Sulfa Antibiotics Other (see Comments) 08/29/19 16 Fever and hot flashes Medications carvedilol (COREG) 25 MG Tablet TAKE ONE TABLET BY MOUTH TWO TIMES A DAY 60 Tab 5 07/02/19 16 Active Additional Information Patient taking differently: 25 mg Oral 2 TIMES DAILY, Reported on 10/23/2024 potassium chloride CR (KLOR-CON) 10 MEQ Tablet Controlled Release Take 1 Tab by mouth 2 times daily. 240 Tab 5 02/25/19 17 Active Additional Information Patient taking differently:10 mEq OralDAILY, Reported on 10/23/2024 omeprazole (PRILOSEC) 40 MG CAPSULE DELAYED RELEASEIndications: Gastroesophageal reflux disease without esophagitis,Chest pain, unspecified type Take 1 Cap by mouth daily. 90 Cap 3 06/05/19 17 Active Additional Information Patient taking differently:40 mg OralDAILY PRN, Reported on 10/23/2024 glimepiride (AMARYL) 2 MG Tablet Take 2 mg by mouth every morning. Active atorvastatin (LIPITOR) 20 MG Tablet Take 20 mg by mouth nightly. Active Dapagliflozin Pro-metFORMIN ER (Xigduo XR) 10-1000 MG TABLET SR 24 HR Take 1 Tablet by mouth nightly. Active sacubitril-valsarta n (Entresto) 97-103 MG Tablet Take 1 Tablet by mouth 2 times daily. 1/2 tablet daily Active Vericiguat (Verquvo) 2.5 MG Tablet Take 2.5 mg by mouth nightly. Active spironolactone (ALDACTONE) 50 MG Tablet Take 1 Tablet by mouth daily. 30 Tablet 09/04/19 25 Active solifenacin (VESICARE) 5 MG Tablet Take 10 mg by mouth nightly. Active apixaban (ELIQUIS) 5 MG TabletIndications:V enous Thromboembolism Days 1-7 - Take 2 tablets by mouth twice daily. Starting on Day 8, take 1 tablet by mouth twice daily. Indications: Blood Clot Within a Vein 74 Tablet 10/26/19 25 Active pravastatin (PRAVACHOL) 20 MG Tablet Take 20 mg by mouth daily. 025 Discontin ued(Med List Clean Up) Fenofibrate 120 MG Tablet Take 120 mg by mouth daily. 025 Discontin ued(Med List Clean Up) furosemide (LASIX) 20 MG Tablet Take 1 Tablet by mouth daily. 5 Tablet 06/13/19 21 025 Discontin ued(Med List Clean Up) cyclobenzaprine (FLEXERIL) 10 MG Tablet Take 10 mg by mouth 3 times daily as needed for Muscle spasms. 025 Discontin ued(Med List Clean Up) solifenacin (VESICARE) 10 MG Tablet Take 10 mg by mouth daily. 025 Discontin ued(Med List Clean Up) linagliptin (Tradjenta) 5 MG Tablet Take 1 Tablet by mouth daily. 30 Tablet 09/04/19 25 025 Discontin ued(Med List Clean Up) Active Problems Problem Noted Date Diagnosed Date Acute DVT (deep venous thrombosis) 10/23/2024 NSTEMI (non-ST elevated myocardial infarction) 0 08/31/2024 Albuminuria 05/14/2015 Essential hypertension with goal blood pressure less than 130/80 05/13/2015 Hyperlipemia 05/13/2015 Hypokalemia 05/13/2015 Gout 05/13/2015 DM (diabetes mellitus) Nephrolithiasis Vitamin D deficiency Sleep apnea Kidney disease Hypertension History of kidney stones Hearing loss GERD (gastroesophageal reflux disease) Diabetes mellitus Bundle branch block, left Adenomatous colon polyp NICM (nonischemic cardiomyopathy) Chronic systolic CHF (congestive heart failure) CHB (complete heart block) Overview (10/23/2024): AICD AICD (automatic cardioverter/defibrillator) pres ent Overview (10/23/2024): biventricular Encounters Date Type Department Care Team Description 10/23/2024 12:25 PM CDT - 10/25/2024 1:05 PM CDT Hospital Encounter [facility] Med Surg [address] [place] [phone] Ramsey Osborne, Barbie Paredes, CAR KNOCKER, SHORT STORY WRITER CarMaria Eugenia phan MD Acute DVT (deep venous thrombosis) Discharge Disposition: Discharged to home or Selfcare 10/23/2024 Travel 09/05/2024 9:30 PM CDT - 09/05/2024 11:40 PM CDT Emergency [facility] Emergency [address] [place] [phone] Discharge Disposition: LWBS 09/05/2024 Travel 09/03/2024 Telephone [facility] [address] [place] [phone] Ralph Holland MD Advice Only 09/03/2024 Nurse Triage [facility] [address] [place] [phone] Daisha Baker RN Hypotension 08/31/2024 1:27 PM CDT - 09/03/2024 1:08 PM CDT Hospital Encounter [facility] Med Surg [address] [place] [phone] Vladislav Meek MD Dianati, Behfar, MD Bismack, Gregory Thomas, MD NSTEMI (non-ST elevated myocardial infarction) Discharge Disposition: Discharged to home or Selfcare 08/31/2024 Travel 08/18/2024 11:42 AM CDT - 08/18/2024 3:24 PM CDT Emergency [facility] Emergency [address] [place] [phone] Shree Berg MD Acute pain of left shoulder Discharge Disposition: Discharged to home or Selfcare 08/18/2024 Travel from Last 3 Months Immunizations Immunization Administration Dates Next Due Influenza Vaccine greater than 3 yrs 11/14/2014 Influenza Vaccine, Quadrivalent, PF 12/08/2017,1 Influenza, Trivalent, Adjuvanted, PF 10/24/2024 Influenza, high-dose, trivalent, PF 11/27/2014 Pneumococcal Vaccine Adult - 23 Valent 5 Pneumococcal conjugate PCV20 , polysaccharide [id number] conjugate, adjuvant, PF 09/01/2024 Family History Medical History Relation Name Comments [...] the phone with family, friends, or neighbors? Patient declined 10/23/2024 How often do you get togethe r with friends or relatives? Patient declined 10/23/2024 How often do you attend alevism or roman catholic serv ices? Patient declined 10/23/2024 Do you belong to any clubs o r organizations such as alevism groups, unions, fraternal or athletic groups, or school groups? Patient declined 10/23/2024 How often do you attend meet ings of the clubs or organizations you belong to? Patient declined 10/23/2024 Are you , , di vorced, , never , or living with a partner? Patient declined 10/23/2024 AUDIT-C Answer Date Recorded Q1: How often do you have a drink containing alc ohol? Patient declined 10/23/2024 Q2: How many drinks containi ng alcohol do you have on a typical day when you are drinking? Patient declined 10/23/2024 Q3: How often do you have si x or more drinks on one occasion? Patient declined 10/23/2024 Overall Financial Resource Strain (CARDIA) Answe r Date Recorded How hard is it for you to pa y for the very basics like food, housing, medical care, and heating? Patient declined 10/23/[facility]24 [facility] - Occupational Stress Questionnaire Answer Date Recorded Do you feel stress - tense, restless, nervous, or anxious, or unable to sleep at night because your mind is troubled all the time - these days? Patient declined 10/23/2024 Exercise Vital Sign Answer Date Recorde d On average, how many days pe r week do you engage in moderate to strenuous exercise (like a brisk walk)? Patient declined On average, how many minutes do you engage in exercise at this level? Patient declined 10/23/2024 Hunger Vital Sign Answer Date Recorded Within the past 12 months, y ou worried that your food would run out before you got the money to buy more. Patient declined Within the past 12 months, t he food you bought just didn't last and you didn't have money to get more. Patient declined 10/2024 PRAPARE - Transportation Answer Date Re corded In the past 12 months, has l ack of transportation kept you from medical appointments or from getting medications? Patient declined 10/23/2024 In the past 12 months, has l ack of transportation kept you from meetings, work, or from getting things needed for daily living? Patient declined 10/23/2024 Housing Stability Vital Sign Answer Ankur e Recorded In the last 12 months, was t here a time when you were not able to pay the mortgage or rent on time? Patient declined 10/24/19 25 In the past 12 months, how m any times have you moved where you were living? 1 10/23/2024 At any time in the past 12 m [facility], were you homeless or living in a fpc (including now)? Patient declined 10/23/2024 [facility] Utilities Answer Date Recorded In the past 12 months has th e [employer], gas, oil, or water company threatened to shut off services in your home? Patient declined 10/23/2024 Sexually Active Control Partners Comments Yes Female Sex and Gender Information Value Date Recorded Sex Assigned at Not on file Legal Sex Male 10:39 PM CDT Gender Identity Not on file Sexual Orientation Not on file Occupation Industry Job Start Date Job End Date retired from [employer] Not on file Not on file Not o n file Last Filed Vital Signs Vital Sign Reading Time Taken Comments Blood Pressure 118/72 10/25/2024 12:00 PM CDT Pulse 80 10/25/2024 12:00 PM CDT Temperature 36.5 C (97.7 F) 10/25/2024 12:00 PM CDT Respiratory Rate 20 10/25/2024 12:0 0 PM CDT Oxygen Saturation 98% 10/25/2024 12: 00 PM CDT Inhaled Oxygen Concentration - - Weight 84.3 kg (185 lb 13.6 oz) 025 12:30 PM CDT Height 182.9 cm (6') 10/23/2024 12:30 PM CDT Body Mass Index 25.21 10/23/2024 12:30 PM CDT Plan of Treatment Upcoming Encounters Date Type Department Care Team (Late st Contact Info) Description 12/20/2024 10:30 AM DELINQUENCY PREVENTION OFFICER Office Visit [facility] [address] [place] [phone] Lina Tang MD [address] [phone] Health Maintenance Due Date Last Done Comments Diabetes: Eye Exam 1945 Diabetes: Foot Exam 1945 Hepatitis C Virus (HCV) Screening 1945 TdaP Immunization 1945 Zoster Immunization (1 of 2) 1996 Respiratory Syncytial Virus (RSV) Immunization (Adult) (1 - 1-dose 75+ series) 2021 Diabetes: Hemoglobin A1c 03/03/2025 025, 11/24/2015, 05/05/2015 Diabetes: Nephropathy Screening 10/25/2025 10/25/2024, 10/23/2024, 08/31/2024, Additional history exists Colonoscopy Discontinued 06/04/2016, 10/01/2009 Colorectal Cancer Screening Discontinued SARS-COV-2 Immunization Completed 07/12/19, 12/08/2023, 12/02/2022, Additional history exists Pneumococcal Immunization (50+ years) Completed 09/01/2024, 11/14/2014 Pneumococcal Immunization Combined Discontinued 09/01/2024, 11/14/2014 Influenza Immunization Completed , 12/08/2023, 12/02/2022, Additional history exists Cologuard Discontinued Hepatitis B Immunization Aged Out No longer eligible based on patient's age to complete this topic Human Papillomavirus (HPV) Immunization Aged Out No longer eligible based on patient's age to complete this topic Immunochemical Fecal Occult Blood Discontinued Meningococcal Immunization (ACWY) Aged Out No longer eligible based on patient's age to complete this topic Rotavirus Immunization Aged Out No lo nger eligible based on patient's age to complete this topic Procedures Procedure Name Priority Date/Time Associated Diagnosis Comments POCT GLUCOSE Routine 10/25/2024 10:36 AM CDT CBC WITH AUTO DIFFERENTIAL Routine 10/25/2024 7:00 AM CDT CREATININE BLOOD W/ GFR STAT 10/25/2024 7:00 AM CDT COMPLETE BLOOD COUNT (CBC) WITH DIFF Routine 10/25/2024 7:00 AM CDT BASIC METABOLIC PANEL W/ CALCIUM TOTAL Routine 10/25/2024 7:00 AM CDT RHYTHM STRIP 10/25/2024 12:00 AM CDT RHYTHM STRIP 10/25/2024 12:00 AM CDT POCT GLUCOSE Routine 10/24/2024 7:44 PM CDT POCT GLUCOSE Routine 10/24/2024 4:12 PM CDT APTT (PTT) Routine 10/24/2024 1:55 PM CDT POCT GLUCOSE Routine 10/24/2024 11:33 AM CDT POCT GLUCOSE Routine 10/24/2024 7:27 AM CDT CBC WITH AUTO DIFFERENTIAL Routine 10/24/2024 5:40 AM CDT APTT (PTT) Routine 10/24/2024 5:40 AM CDT COMPLETE BLOOD COUNT (CBC) WITH DIFF Routine 10/24/2024 5:40 AM CDT BASIC METABOLIC PANEL W/ CALCIUM TOTAL Routine 10/24/2024 5:40 AM CDT RHYTHM STRIP 10/24/2024 12:00 AM CDT RHYTHM STRIP 10/24/2024 12:00 AM CDT RHYTHM STRIP 10/24/2024 12:00 AM CDT POCT GLUCOSE Routine 10/23/2024 11:16 PM CDT POCT GLUCOSE Routine 10/23/2024 9:21 PM CDT APTT (PTT) Routine 10/23/2024 7:51 PM CDT POCT GLUCOSE Routine 10/23/2024 5:34 PM CDT POCT GLUCOSE Routine 10/23/2024 3:40 PM CDT CRITICAL CARE Routine 10/23/2024 1:55 PM CDT GOLD TOP TUBE STAT 10/23/2024 1:35 PM CDT CBC WITH AUTO DIFFERENTIAL STAT 10/23/2024 1:35 PM CDT EXTRA TUBES STAT 10/23/2024 1:35 PM CDT APTT (PTT) STAT 10/23/2024 1:35 PM CDT PROTIME (PT) (PROTHROMBIN TIME) STAT 10/23/2024 1:35 PM CDT COMPLETE BLOOD COUNT (CBC) WITH DIFF STAT 10/23/2024 1:35 PM CDT CMP (COMPREHENSIVE METABOLIC PANEL) STAT 10/23/2024 1:35 PM CDT US BILATERAL DUPLEX LOWER EXTREMITY VEINS Stat with Interpretation 10/23/2024 1:21 PM CDT RHYTHM STRIP 10/23/2024 12:00 AM CDT RHYTHM STRIP 10/23/2024 12:00 AM CDT POCT GLUCOSE Routine 09/03/2024 11:37 AM CDT ADULT TRANS THORACIC ECHO 2D COMPLT W CONT STAT 09/03/2024 9:06 AM CDT POCT GLUCOSE Routine 09/03/2024 7:24 AM CDT CBC WITH AUTO DIFFERENTIAL Routine 09/03/2024 4:42 AM CDT BASIC METABOLIC PANEL W/ CALCIUM TOTAL Routine 09/03/2024 4:42 AM CDT COMPLETE BLOOD COUNT (CBC) WITH DIFF Routine 09/03/2024 4:42 AM CDT RHYTHM STRIP 09/03/2024 12:00 AM CDT RHYTHM STRIP 09/03/2024 12:00 AM CDT POCT GLUCOSE Routine 09/02/2024 8:07 PM CDT POCT GLUCOSE Routine 09/02/2024 5:18 PM CDT POCT GLUCOSE Routine 09/02/2024 12:07 PM CDT APTT (PTT) Routine 09/02/2024 10:56 AM CDT POCT GLUCOSE Routine 09/02/2024 7:37 AM CDT CBC WITH AUTO DIFFERENTIAL Routine 09/02/2024 4:27 AM CDT APTT (PTT) Routine 09/02/2024 4:27 AM CDT COMPLETE BLOOD COUNT (CBC) WITH DIFF Routine 09/02/2024 4:27 AM CDT BASIC METABOLIC PANEL W/ CALCIUM TOTAL Routine 09/02/2024 4:27 AM CDT RHYTHM STRIP 09/02/2024 12:00 AM CDT RHYTHM STRIP 09/02/2024 12:00 AM CDT RHYTHM STRIP 09/02/2024 12:00 AM CDT POCT GLUCOSE Routine 09/01/2024 7:46 PM CDT POCT GLUCOSE Routine 09/01/2024 3:49 PM CDT POCT GLUCOSE Routine 09/01/2024 11:48 AM CDT POCT GLUCOSE Routine 09/01/2024 7:36 AM CDT CBC WITH AUTO DIFFERENTIAL STAT 09/01/2024 7:10 AM CDT APTT (PTT) Timed 09/01/2024 7:10 AM CDT COMPLETE BLOOD COUNT (CBC) WITH DIFF STAT 09/01/2024 7:10 AM CDT BASIC METABOLIC PANEL W/ CALCIUM TOTAL STAT 09/01/2024 7:10 AM CDT APTT (PTT) STAT 09/01/2024 12:07 AM CDT RHYTHM STRIP 09/01/2024 12:00 AM CDT RHYTHM STRIP 09/01/2024 12:00 AM CDT RHYTHM STRIP 09/01/2024 12:00 AM CDT POCT GLUCOSE Routine 08/31/2024 8:12 PM CDT TROPONIN I, HIGH SENSITIVITY (HSTRP) STAT 08/31/2024 7:45 PM CDT HEMOGLOBIN A1C W/ ESTIMATED GLUCOSE STAT 08/31/2024 5:20 PM CDT APTT (PTT) STAT 08/31/2024 5:20 PM CDT PROTIME (PT) (PROTHROMBIN TIME) STAT 08/31/2024 5:20 PM CDT COMPLETE BLOOD COUNT (CBC) WITHOUT DIFF STAT 08/31/2024 5:20 PM CDT CRITICAL CARE Routine 08/31/2024 4:56 PM CDT TROPONIN I, HIGH SENSITIVITY (HSTRP) STAT 08/31/2024 3:10 PM CDT XR CHEST SINGLE VIEW PORTABLE STAT 08/31/2024 2:27 PM CDT GOLD TOP TUBE STAT 08/31/2024 1:35 PM CDT BLUE TOP TUBE STAT 08/31/2024 1:35 PM CDT CBC WITH AUTO DIFFERENTIAL STAT 08/31/2024 1:35 PM CDT EXTRA TUBES STAT 08/31/2024 1:35 PM CDT N-TERMINAL- PRO B TYPE NATRIURETIC PEPTIDE STAT 08/31/2024 1:35 PM CDT TROPONIN I, HIGH SENSITIVITY (HSTRP) STAT 08/31/2024 1:35 PM CDT CMP (COMPREHENSIVE METABOLIC PANEL) STAT 08/31/2024 1:35 PM CDT COMPLETE BLOOD COUNT (CBC) WITH DIFF STAT 08/31/2024 1:35 PM CDT EKG 12 LEAD STAT 08/31/2024 1:23 PM CDT RHYTHM STRIP 08/31/2024 12:00 AM CDT EKG SCAN 08/31/2024 12:00 AM CDT RHYTHM STRIP 08/31/2024 12:00 AM CDT XR SHOULDER COMPLETE LEFT STAT 08/18/2024 2:30 PM CDT XR CHEST 2 VIEWS STAT 08/18/2024 12:14 PM CDT CBC WITH AUTO DIFFERENTIAL STAT 08/18/2024 11:45 AM CDT TROPONIN I, HIGH SENSITIVITY (HSTRP) STAT 08/18/2024 11:45 AM CDT CMP (COMPREHENSIVE METABOLIC PANEL) STAT 08/18/2024 11:45 AM CDT COMPLETE BLOOD COUNT (CBC) WITH DIFF STAT 08/18/2024 11:45 AM CDT EKG 12 LEAD STAT 08/18/2024 11:29 AM CDT EKG SCAN 08/18/2024 12:00 AM CDT from Last 3 Months Results * (ABNORMAL) POCT Glucose (10/25/2024 10:36 AM CDT) Only the most recent of20 resultswithin the time period is included. [facility] Signature GLUCOSE,BEDSID E POCT 158(H) 70 - 99 mg/dL 10/25/2024 10:43 AM CDT [facility] Blood 10/25/2024 10:3 6 AM CDT 10/25/2024 10:43 AM CDT us None Provider POINT OF CARE TESTING Final Resu lt [facility] [address] [place] [address] * (ABNORMAL) CBC with Auto Differential (10/25/2024 7:00 AM CDT) Only the most recent of8 resultswithin the time period is included. WBC 9.40 4.00 - 12.00 10(3)/[facility] 10/25/2024 7:33 AM CDT [facility] RBC 4.94 4.40 - 5.80 10(6)/[facility] 10/25/2024 7:33 AM CDT [facility] HEMOGLOBIN (HGB) 15.5 13.0 - 16.5 g/dL 10/25/2024 7:33 AM CDT [facility] HEMATOCRIT (HCT) 47.3 38.0 - 50.0 % 10/25/2024 7:33 AM CDT [facility] MCV 95.7 82.0 - 96.0 fL 10/25/2024 7:33 AM CDT [facility] MCH 31.4 26.0 - 32.0 pg 10/25/2024 7:33 AM CDT [facility] MCHC 32.8 31.0 - 36.0 g/dL 10/25/2024 7:33 AM CDT [facility] PLATELET COUNT 154 140 - 440 10(3)/[facility] 10/25/2024 7:33 AM CDT [facility] RDW 14.5 11.8 - 15.5 % 10/25/2024 7:33 AM CDT [facility] MPV 11.1 8.0 - 12.6 fL 10/25/2024 7:33 AM CDT [facility] NEUTROPHILS 66.6 40.0 - 68.0 % 10/25/2024 7:33 AM CDT [facility] LYMPHOCYTES 20.0 19.0 - 49.0 % 10/25/2024 7:33 AM CDT [facility] MONOCYTES 8.9 3.0 - 13.0 % 10/25/2024 7:33 AM CDT [facility] EOSINOPHILS 3.7 0.0 - 8.0 % 10/25/2024 7:33 AM CDT [facility] BASOPHILS 0.4 0.0 - 1.0 % 10/25/2024 7:33 AM CDT [facility] IMMATURE GRANULOCYTE 0.4 0.0 - 0.4 % 10/25/2024 7:33 AM CDT [facility] ABSOLUTE NEUTROPHILS 6.25(H) 1.40 - 5.30 10(3)/[facility] 10/25/2024 7:33 AM CDT [facility] ABSOLUTE LYMPHOCYTES 1.88 0.90 - 3.30 10(3)/[facility] 10/25/2024 7:33 AM CDT [facility] ABSOLUTE MONOCYTES 0.84 0.10 - 0.90 10(3)/[facility] 10/25/2024 7:33 AM CDT [facility] ABSOLUTE EOSINOPHIL 0.35 0.00 - 0.50 10(3)/[facility] 10/25/2024 7:33 AM CDT [facility] ABSOLUTE BASOPHILS 0.04 0.00 - 0.10 10(3)/[facility] 10/25/2024 7:33 AM CDT [facility] ABSOLUTE IMMATURE GRANULOCYTE 0.04(H) 0.00 - 0.03 10 (3) mcL. 10/25/2024 7:33 AM CDT [facility] NRBC PER 100 WBC 0 10/26/19 7:33 AM CDT [facility] Blood Venipuncture / Unknown 10/25/2024 7:00 AM CDT 10/25/2024 7:22 AM CDT us Barbie Tucker CAR KNOCKER, SHORT STORY WRITER HEMATOLOGY ORDERABLES F inal Result [facility] [address] [place] [address] * Creatinine Blood w/ GFR (10/25/2024 7:00 AM CDT) CREATININE, BLOOD 1.10 0.70 - 1.30 mg/dL 10/25/2024 8:13 AM CDT [facility] GFR, ESTIMATED >60 >=60 10/25/2024 8:13 AM CDT [facility] Comment: Creatinine Clearance is the preferred criteria for selecting drug dose adjustments in renally impaired patients. The GFR is provided as additional pertinent clinical information. GFR is reported in mL/min/1.73 sq m. Calculation based on the 2020 Chronic Kidney Disease Epidemiology Collaboration (CKD-EPI) equation refit without adjustment for race. GFR, EST. >60 >=60 025 8:13 AM CDT [facility] Comment: Creatinine Clearance is the preferred criteria for selecting drug dose adjustments in renally impaired patients. The GFR is provided as additional pertinent clinical information. GFR is reported in mL/min/1.73 sq m. Calculation based on the 2009 Chronic Kidney Disease Epidemiology Collaboration (CKD-EPI). GFR, EST. NONAFRICAN >60 >=60 10/25/2024 8:13 AM CDT [facility] Comment: Creatinine Clearance is the preferred criteria for selecting drug dose adjustments in renally impaired patients. The GFR is provided as additional pertinent clinical information. GFR is reported in mL/min/1.73 sq m. Calculation based on the 2009 Chronic Kidney Disease Epidemiology Collaboration (CKD-EPI). Blood Venipuncture / Unknown 10/25/2024 7:00 AM CDT 10/25/2024 7:23 AM CDT us Maria Eugenia Mcknight MD CHEMISTRY ORDERABLES Final Result [facility] [address] [place] [address] * (ABNORMAL) BMP with Ca, Total (10/25/2024 7:00 AM CDT) Only the most recent of5 resultswithin the time period is included. SODIUM 141 136 - 145 mmol/L 10/25/2024 7:55 AM CDT [facility] POTASSIUM 3.9 3.5 - 5.1 mmol/L 10/25/2024 7:55 AM CDT [facility] CHLORIDE 108(H) 98 - 107 mmol/L 10/25/2024 7:55 AM T [facility] CO2, VENOUS 24 22 - 30 mmol/L 10/25/2024 7:55 AM T [facility] ANION GAP 12.9 <18.0 mmol/L 10/25/2024 7:55 AM T [facility] GLUCOSE 125(H) 70 - 99 mg/dL 10/25/2024 7:55 AM CDT [facility] BUN 14 8 - 26 mg/dL 10/25/2024 7:55 AM T [facility] CREATININE, BLOOD 1.10 0.70 - 1.30 mg/dL 10/25/2024 7:55 AM [facility] BUN/CREATININE RATIO 13 12 - 20 ratio 10/25/2024 7:55 AM [facility] CALCIUM 8.4(L) 8.7 - 10.5 mg/dL 10/25/2024 7:55 AM [facility] GFR, ESTIMATED >60 >=60 10/25/2024 7:55 AM [facility] Comment: Creatinine Clearance is the preferred criteria for selecting drug dose adjustments in renally impaired patients. The GFR is provided as additional pertinent clinical information. GFR is reported in mL/min/1.73 sq m. Calculation based on the 2020 Chronic Kidney Disease Epidemiology Collaboration (CKD-EPI) equation refit without adjustment for race. GFR, EST. >60 >=60 025 7:55 AM [facility] Comment: Creatinine Clearance is the preferred criteria for selecting drug dose adjustments in renally impaired patients. The GFR is provided as additional pertinent clinical information. GFR is reported in mL/min/1.73 sq m. Calculation based on the 2009 Chronic Kidney Disease Epidemiology Collaboration (CKD-EPI). GFR, EST. NONAFRICAN >60 >=60 10/25/2024 7:55 AM [facility] Comment: Creatinine Clearance is the preferred criteria for selecting drug dose adjustments in renally impaired patients. The GFR is provided as additional pertinent clinical information. GFR is reported in mL/min/1.73 sq m. Calculation based on the 2009 Chronic Kidney Disease Epidemiology Collaboration (CKD-EPI). Blood Venipuncture / Unknown 10/25/2024 7:00 AM CDT 10/25/2024 7:23 AM CDT us Barbie Tucker APRN, LUCIO CHEMISTRY ORDERABLES Fi nal Result Performing Organization Address [facility] Co de Phone Number [facility] [address] [place] [address] * RHYTHM STRIP (10/25/2024 12:00 AM CDT) Only the most recent of17 resultswithin the time period is included. 10/25/2024 us Provider Scan IMG ECG ORDERABLES Final Result Performing Organization Address [facility] de Phone Number RESULTING AGENCY * (ABNORMAL) APTT (PTT) (10/24/2024 1:55 PM CDT) Only the most recent of9 resultswithin the time period is included. PTT 81(H) 24 - 36 sec 10/24/2024 2:50 PM CDT [facility] Blood Venipuncture / Unknown 10/24/2024 1:55 PM CDT 10/24/2024 1:59 PM CDT Narrative [facility] - 10/24/2024 2:50 PM CDT Therapeutic range for unfractionated heparin at 0.3-0.7 U/mL is an aPTT value in the range of 71-100 seconds. Critical value for the PTT test is >= 122 seconds. us Barbie Tucker APRN, LUCIO HEMATOLOGY ORDERABLES F inal Result Performing Organization Address [facility] Co de Phone Number [facility] [address] [place] [address] * Critical Care (10/23/2024 1:55 PM CDT) Narrative Ramsey Osborne DO - 10/23/2024 1:55 PM CDT Ramsey Osborne DO 10/23/2024 3:49 PM Critical Care Performed by: Ramsey Osborne DO Authorized by: Ramsey Osborne DO Critical care provider statement: Critical care time (minutes): 35 us Ramsey Osborne DO PROCEDURE/MINOR SURGICA L ORDERABLES Final Result * Gold Top Tube (10/23/2024 1:35 PM CDT) Only the most recent of2 resultswithin the time period is included. Blood No Phlebotomy Charged / Unknown 10/23/2024 1:35 PM CDT 10/23/2024 1:43 PM CDT us Ramsey Osborne DO CHEMISTRY ORDERABLES Fi nal Result Performing Organization Address [facility] Co de Phone Number [facility] [place] [address] * Protime (PT or Prothrombin Time) - baseline (10/23/2024 1:35 PM CDT) Only the most recent of2 resultswithin the time period is included. PROTIME-PATIENT 13.8 11.6 - 14.8 sec 10/23/2024 2:03 PM CDT [facility] INR 1.1 0.9 - 1.2 10/23/2024 2:03 PM CDT [facility] Comment: Therapeutic Ranges INR = 2.0-3.0: Venous thromb, atrial fib, pul embolism, tissue heart valve, ami. INR = 2.5-3.5: Mechanical heart valve Critical value for INR is >/= 4.5 Blood Venipuncture / Unknown 10/23/2024 1:35 PM CDT 10/23/2024 1:42 PM CDT us Ramsey Osborne DO HEMATOLOGY ORDERABLES F inal Result Performing Organization Address City/[facility] Co de Phone Number [facility] [place] [address] * (ABNORMAL) CMP (Comprehensive Metabolic Panel) (10/23/2024 1:35 PM CDT) Only the most recent of3 resultswithin the time period is included. SODIUM 141 136 - 145 mmol/L 10/23/2024 2:04 PM CDT [facility] POTASSIUM 4.7 3.5 - 5.1 mmol/L 10/23/2024 2:04 PM CDT [facility] CHLORIDE 108(H) 98 - 107 mmol/L 10/23/2024 2:04 PM CDT [facility] CO2, VENOUS 27 22 - 30 mmol/L 10/23/2024 2:04 PM CDT [facility] ANION GAP 10.7 <18.0 mmol/L 10/23/2024 2:04 PM CDT [facility] GLUCOSE 134(H) 70 - 99 mg/dL 10/23/2024 2:04 PM CDT [facility] BUN 14 8 - 26 mg/dL 10/23/2024 2:04 PM CDT [facility] CREATININE, BLOOD 1.30 0.70 - 1.30 mg/dL 10/23/2024 2:04 PM CDT [facility] BUN/CREATININE RATIO 11(L) 12 - 20 ratio 10/23/2024 2:04 PM CDT [facility] TOTAL PROTEIN 7.0 6.0 - 8.0 g/dL 10/23/2024 2:04 PM CDT [facility] ALBUMIN 3.6 3.5 - 5.0 g/dL 10/23/2024 2:04 PM CDT [facility] A/G RATIO 1.1 1.0 - 2.2 10/23/2024 2:04 PM CDT [facility] CALCIUM 8.9 8.7 - 10.5 mg/dL 10/23/2024 2:04 PM CDT [facility] T BILI 0.8 0.2 - 1.2 mg/dL 10/23/2024 2:04 PM CDT [facility] SGOT (AST) 24 <43 U/L 10/23/2024 2:04 PM CDT [facility] SGPT (ALT) 22 <56 U/L 10/23/2024 2:04 PM CDT [facility] ALKALINE PHOSPHATASE 65 40 - 150 U/L 10/23/2024 2:04 PM CDT [facility] GFR, ESTIMATED 56(L) >=60 10/23/2024 2:04 PM CDT [facility] Comment: Creatinine Clearance is the preferred criteria for selecting drug dose adjustments in renally impaired patients. The GFR is provided as additional pertinent clinical information. GFR is reported in mL/min/1.73 sq m. Calculation based on the 2020 Chronic Kidney Disease Epidemiology Collaboration (CKD-EPI) equation refit without adjustment for race. GFR, EST. >60 >=60 2:04 PM CDT [facility] Comment: Creatinine Clearance is the preferred criteria for selecting drug dose adjustments in renally impaired patients. The GFR is provided as additional pertinent clinical information. GFR is reported in mL/min/1.73 sq m. Calculation based on the 2009 Chronic Kidney Disease Epidemiology Collaboration (CKD-EPI). GFR, EST. NONAFRICAN 53(L) >=60 10/23/2024 2:04 PM CDT [facility] Comment: Creatinine Clearance is the preferred criteria for selecting drug dose adjustments in renally impaired patients. The GFR is provided as additional pertinent clinical information. GFR is reported in mL/min/1.73 sq m. Calculation based on the 2009 Chronic Kidney Disease Epidemiology Collaboration (CKD-EPI). Blood Venipuncture / Unknown 10/23/2024 1:35 PM CDT 10/23/2024 1:42 PM CDT us Ramsey Osborne DO CHEMISTRY ORDERABLES Fi nal Result [facility] [place] [address] * US BILATERAL DUPLEX LOWER EXTREMITY VEINS (10/23/2024 1:21 PM CDT) Anatomical Region Laterality Modality vascular Bilateral Ultrasound 10/23/2024 1:21 PM CDT Impressions 10/23/2024 1:56 PM CDT IMPRESSION: Extensive occlusive deep venous thrombosis throughout the right leg. Narrative 10/23/2024 1:56 PM CDT US BILATERAL DUPLEX LOWER EXTREMITY VEINS : 10/23/2024 1:21 PM HISTORY: As below. ADDITIONAL TECHNOLOGIST HISTORY: pain and swelling TECHNIQUE: Jose scale, color flow, Spectral Doppler analysis of the bilateral lower extremity deep venous system was performed including compression, augmentation, and color flow analysis. COMPARISON: None. FINDINGS: There is echogenic thrombus within the common femoral vein which is partially occlusive. Thrombus extends into the right femoral vein throughout its course and into the popliteal vein. Thrombus extends into the profunda femoral vein is well anterior to the posterior tibial veins in the calf. The peroneal calf veins were not identified. Procedure Note Piotr Gallagher MD - 10/23/2024 US BILATERAL DUPLEX LOWER EXTREMITY VEINS : 10/23/2024 1:21 PM HISTORY: As below. ADDITIONAL TECHNOLOGIST HISTORY: pain and swelling TECHNIQUE: Jose scale, color flow, Spectral Doppler analysis of the bilateral lowerextremity deep venous system was performed including compression,augmentation, and color flow analysis. COMPARISON: None. FINDINGS: There is echogenic thrombus within the common femoral vein which ispartially occlusive. Thrombus extends into the right femoral veinthroughout its course and into the popliteal vein. Thrombus extends intothe profunda femoral vein is well anterior to the posterior tibial veinsin the calf. The peroneal calf veins were not identified. IMPRESSION: Extensive occlusive deep venous thrombosis throughout the right leg. us Lingmarko Chew [place] DO IMG US ORDERABLES Final Result * ADULT TRANS THORACIC ECHO 2D COMPLT W CONT (09/03/2024 9:06 AM CDT) AV Peak Grad mmHg 4.93 mmHg RESULTING AGENCY Mean Aortic Valve Gradient (MAVG) 3 mmHg RESULTING AGENCY LV end rubi diam cm 4.7 cm RESULTING AGENCY LV end sys diam cm 3.8 cm RESULTING AGENCY Aortic Root Diam cm 3.4 cm RESULTING AGENCY LA vol index ml/m2 22 ml/m2 RESULTING AGENCY LVOT Peak Denys m/sec 0.727 m/sec RESULTING AGENCY AV Peak Denys m/sec 1.11 m/sec RESULTING AGENCY MV Mean Grad mmHg 1 mmHg RESULTING AGENCY E/A Ratio 0.36 RESULTING AGENCY TR Denys m/sec 2.35 m/sec RESULTI NG AGENCY E/E' 3.5 RESULTING AGENCY AV Area (VTI) cm2 2.48 cm2 RESULTING AGENCY SEPTUM DIASTOLIC CM 1.2 cm RESULTING AGENCY PW DIASTOLIC CM 1.2 cm RESU LTING AGENCY LA VOLUME 45 ml RESULTING AGENCY Anatomical Region Laterality Modality CARDIO N/A Ultrasound Narrative 09/03/2024 10:08 AM CDT Transthoracic Echocardiography Report (TTE) Patient name SHAUNA Estrada 1945 Patient ID (UPI) [id number] Indications: NSTEMI, Hypertension and Left Bundle Branch Block. Study Date09/03/2024 Technical quality: Limited visualization Limitation Reason: Lung artifact Type of Study: TTE procedure: Adult Trans Thoracic Echo 2D Complete. Priority:STATHR: 70 bpmBP: 114/72 mmHg Contrast Medium: Lumason. Amount - 3 ml Conclusions Summary The left ventricle is normal in size. Mild concentric LVH. LV function is depressed, estimated at 45%. There is generalized hypokinesis. Abnormal septal motion consistent with conduction disturbance. No hemodynamically significant valvular abnormalities Findings Mitral Valve The mitral valve is normal. There is no evidence of mitral stenosis. There is no significant mitral regurgitation. Aortic Valve The aortic valve is trileaflet with normal leaflet excursion. There is no evidence of aortic valve stenosis. There is no significant aortic valve insufficiency. Tricuspid Valve The tricuspid valve is normal. There is no evidence of tricuspid stenosis. There is no significant tricuspid regurgitation. There is no evidence of pulmonary hypertension. Pulmonic Valve The pulmonic valve structure appears normal. There is no evidence of pulmonic stenosis. There is no significant pulmonic valve regurgitation. Left Atrium The left atrium size is normal. Left Ventricle The left ventricle is normal in size. Mild concentric LVH. LV function is depressed, estimated at 45%. There is generalized hypokinesis. Abnormal septal motion consistent with conduction disturbance. Right Atrium The right atrium size is normal. Right Ventricle Normal right ventricular cavity size and normal systolic function. Pericardial Effusion The pericardium is normal. There is no pericardial effusion visualized. Pleural Effusion No pleural effusion noted. Miscellaneous Aortic root and proximal ascending aorta are normal in size. Atrial septum appears intact. IVC is normal in size and respiratory response. Aortic arch appears normal. Valves Mitral Valve Peak E-Wave: 0.27 m/s Area (continuity): 2.75 cm^2 Peak A-Wave: 0.77 m/s Mean Velocity: 0.47 m/s Peak Gradient: 0.31 mmHg Mean Gradient: 1 mmHg Tissue Doppler E' Velocity: 0.06 m/s E/E':3.5 E/A Ratio: 0.36 E/Lat E': 3.5 E/Med E':4.2 Aortic Valve Area (continuity): 2.48 cm^2 Mean Velocity: 0.86 m/s Area (VTI):2.48 cm^2 Mean Gradient: 3 mmHg Peak Velocity: 1.11 m/s AV VTI: 20.1 cm Peak Gradient: 4.93 mmHg Tricuspid Valve Peak E-Wave: 0.49 m/s Peak Gradient: 0.99 mmHg TR Velocity: 2.35 m/s TR Gradient: 22.09 mmHg Pulmonic Valve Peak Velocity: 0.71 m/s Mean Velocity: 0.49 m/s Peak Gradient: 2.03 mmHg Mean Gradient: 1 mmHg LVOT Peak Velocity: 0.72 m/s Mean Velocity: 0.49 m/s Peak Gradient: 2 mmHg Mean Gradient: 1 mmHg LVOT Diameter: 2.2 cm LVOT VTI: 13.1 cm Stroke Volume: 50 ml Stroke Volume Index: 24.04 ml/m^2 Structures Left Ventricle Diastolic Dimension: 4.7 cm Systolic Dimension: 3.8 cm Septum Diastolic: 1.2 cm Septum Systolic: 1.4 cm PW Diastolic: 1.2 cm PW Systolic: 1.5 cm Diastolic Length: 35.5 cm Systolic Length: 24.9 cm EF Calculated: 38.78% CI: 1.67 l/min*m^2 CO: 3.48 l/min RWT: 0.51 LV EDV: 93.6 ml FS: 19.15 % LV EDV Index: 45 m^2 LV Length: 9.05 cm LV ESV: 57.3 ml LVOT Diameter: 2.2 cm LV ESV Index: 28 m^2 Right Ventricle Tissue Doppler RV S': 9.03 TAPSE: 1.53 cm Left Atrium LA Systolic Pressure: 6.32 mmHg LA Area: 19 cm^2 LA Volume: 45 ml LA Index: 22ml/m^2 Right Atrium RA Area: 13.4 cm^2 Great Vessels Aorta Ascending Aorta: 3.9 cm Aorta Root:3.4 cm Ascending Aorta Index:1.88 cm/m^2 Contractility Score LV regional wall motion: (0-Not visualized 1-Normal 1'-Hyperkinesis 2-Hypokinesis 3-Akinesis 4-Dyskinesis 5-Aneurysm) Demographics Age 79 Gender Male Race Height 72.01 in. Weight 190 lbs. BMI (BSA) 25.76 kg/m^2 (2.08 m^2) [employer] [facility] Room 234 Interpreting Gabrielle Jackson Referring Physician Lidya MARIANO Physician Procedure Note Manuel Anthony MD - 09/03/2024 Transthoracic Echocardiography Report (TTE) Patient name SHAUNA Estrada 1945 Patient ID (UPI) [id number] Indications: NSTEMI, Hypertension and Left Bundle Branch Block. Study Date09/03/2024 Technical quality: Limited visualization Limitation Reason: Lung artifact Type of Study: TTE procedure: Adult Trans Thoracic Echo 2D Complete. Priority:STATHR: 70 bpmBP: 114/72 mmHg Contrast Medium: Lumason. Amount - 3 ml Conclusions Summary The left ventricle is normal in size. Mild concentric LVH. LV function is depressed, estimated at 45%. There is generalized hypokinesis. Abnormal septal motion consistent with conduction disturbance. No hemodynamically significant valvular abnormalities Findings Mitral Valve The mitral valve is normal. There is no evidence of mitral stenosis. There is no significant mitral regurgitation. Aortic Valve The aortic valve is trileaflet with normal leaflet excursion. There is no evidence of aortic valve stenosis. There is no significant aortic valve insufficiency. Tricuspid Valve The tricuspid valve is normal. There is no evidence of tricuspid stenosis. There is no significant tricuspid regurgitation. There is no evidence of pulmonary hypertension. Pulmonic Valve The pulmonic valve structure appears normal. There is no evidence of pulmonic stenosis. There is no significant pulmonic valve regurgitation. Left Atrium The left atrium size is normal. Left Ventricle The left ventricle is normal in size. Mild concentric LVH. LV function is depressed, estimated at 45%. There is generalized hypokinesis. Abnormal septal motion consistent with conduction disturbance. Right Atrium The right atrium size is normal. Right Ventricle Normal right ventricular cavity size and normal systolic function. Pericardial Effusion The pericardium is normal. There is no pericardial effusion visualized. Pleural Effusion No pleural effusion noted. Miscellaneous Aortic root and proximal ascending aorta are normal in size. Atrial septum appears intact. IVC is normal in size and respiratory response. Aortic arch appears normal. Valves Mitral Valve Peak E-Wave: 0.27 m/s Area (continuity): 2.75 cm^2 Peak A-Wave: 0.77 m/s Mean Velocity: 0.47 m/s Peak Gradient: 0.31 mmHg Mean Gradient: 1 mmHg Tissue Doppler E' Velocity: 0.06 m/s E/E':3.5 E/A Ratio: 0.36 E/Lat E': 3.5 E/Med E':4.2 Aortic Valve Area (continuity): 2.48 cm^2 Mean Velocity: 0.86 m/s Area (VTI):2.48 cm^2 Mean Gradient: 3 mmHg Peak Velocity: 1.11 m/s AV VTI: 20.1 cm Peak Gradient: 4.93 mmHg Tricuspid Valve Peak E-Wave: 0.49 m/s Peak Gradient: 0.99 mmHg TR Velocity: 2.35 m/s TR Gradient: 22.09 mmHg Pulmonic Valve Peak Velocity: 0.71 m/s Mean Velocity: 0.49 m/s Peak Gradient: 2.03 mmHg Mean Gradient: 1 mmHg LVOT Peak Velocity: 0.72 m/s Mean Velocity: 0.49 m/s Peak Gradient: 2 mmHg Mean Gradient: 1 mmHg LVOT Diameter: 2.2 cm LVOT VTI: 13.1 cm Stroke Volume: 50 ml Stroke Volume Index: 24.04 ml/m^2 Structures Left Ventricle Diastolic Dimension: 4.7 cm Systolic Dimension: 3.8 cm Septum Diastolic: 1.2 cm Septum Systolic: 1.4 cm PW Diastolic: 1.2 cm PW Systolic: 1.5 cm Diastolic Length: 35.5 cm Systolic Length: 24.9 cm EF Calculated: 38.78% CI: 1.67 l/min*m^2 CO: 3.48 l/min RWT: 0.51 LV EDV: 93.6 ml FS: 19.15 % LV EDV Index: 45 m^2 LV Length: 9.05 cm LV ESV: 57.3 ml LVOT Diameter: 2.2 cm LV ESV Index: 28 m^2 Right Ventricle Tissue Doppler RV S': 9.03 TAPSE: 1.53 cm Left Atrium LA Systolic Pressure: 6.32 mmHg LA Area: 19 cm^2 LA Volume: 45 ml LA Index: 22ml/m^2 Right Atrium RA Area: 13.4 cm^2 Great Vessels Aorta Ascending Aorta: 3.9 cm Aorta Root:3.4 cm Ascending Aorta Index:1.88 cm/m^2 Contractility Score LV regional wall motion: (0-Not visualized 1-Normal 1'-Hyperkinesis 2-Hypokinesis 3-Akinesis 4-Dyskinesis 5-Aneurysm) Demographics Age 79 Gender Male Race Height 72.01 in. Weight 190 lbs. BMI (BSA) 25.76 kg/m^2 (2.08 m^2) [employer] [facility] Room 234 Interpreting Gabrielle Jackson Referring Physician Lidya MARIANO Physician Barbie Tucker APRN, CNP IMG ECHO ORDERABLES [facility] al Result * (ABNORMAL) TROPONIN I, HIGH SENSITIVITY (HSTRP) (08/31/2024 7:45 PM CDT) Only the most recent of4 resultswithin the time period is included. [facility] TROPONIN I, HIGH SENSITIVITY- [place] 235(H) <=35 ng/L 08/31/2024 8:18 PM CDT [facility] Comment: High-sensitivity troponin I results are reported in ng/L making the result appear to be 1,000 times higher than the contemporary troponin I value which is reported in ng/ml. Results from [place]. Blood Venipuncture / Unknown 08/31/2024 7:45 PM CDT 08/31/2024 7:50 PM CDT Barbie Tucker APRN, CNP CHEMISTRY ORDERABLES Fi nal Result [facility] [place] [address] * Hemoglobin A1C (if indicated) (08/31/2024 5:20 PM CDT) [facility] HGB-A1C 5.7 4.0 - 6.0 % 08/31/2024 6:33 PM CDT [facility] Est Average Glucose 116.9 mg/dL 08/31/2024 6:33 PM CDT [facility] Blood Venipuncture / Unknown 08/31/2024 5:20 PM CDT 08/31/2024 5:31 PM CDT Narrative [facility] - 08/31/2024 6:33 PM CDT HEMOGLOBIN A1C: DIABETIC PATIENTS: WELL-CONTROLLED: 6.2 - 7.0 INTERMEDIATE WELL-CONTROLLED: 7.0 - 9.0 POORLY-CONTROLLED: >9.0 Specimens containing greater than 5% of Hemoglobin F may result in lower than expected % HbA1C results. us Barbie Tucker APRN, LUCIO CHEMISTRY ORDERABLES Fi nal Result [facility] [place] [address] * (ABNORMAL) Complete Blood Count (CBC) WITHOUT Diff - baseline (08/31/2024 5:20 PM CDT) WBC 14.49(H) 4.00 - 12.00 10(3)/mcL 08/31/2024 5:34 PM CDT [facility] RBC 5.15 4.40 - 5.80 10(6)/mcL 08/31/2024 5:34 PM CDT [facility] HEMOGLOBIN (HGB) 16.0 13.0 - 16.5 g/dL 08/31/2024 5:34 PM CDT [facility] HEMATOCRIT (HCT) 48.2 38.0 - 50.0 % 08/31/2024 5:34 PM CDT [facility] MCV 93.6 82.0 - 96.0 fL 08/31/2024 5:34 PM CDT [facility] MCH 31.1 26.0 - 32.0 pg 08/31/2024 5:34 PM CDT [facility] MCHC 33.2 31.0 - 36.0 g/dL 08/31/2024 5:34 PM CDT [facility] PLATELET COUNT 141 140 - 440 10(3)/mcL 08/31/2024 5:34 PM CDT [facility] RDW 13.4 11.8 - 15.5 % 08/31/2024 5:34 PM CDT [facility] MPV 10.2 8.0 - 12.6 fL 08/31/2024 5:34 PM CDT [facility] Blood Venipuncture / Unknown 08/31/2024 5:20 PM CDT 08/31/2024 5:31 PM CDT Vladislav Meek MD HEMATOLOGY ORDERABLES Megan l Result [facility] [place] [address] * Critical Care (08/31/2024 4:56 PM CDT) Narrative Vladislav Meek MD - 08/31/2024 4:56 PM CDT Vladislav Meek MD 08/31/2024 5:08 PM Critical Care Performed by: Vladislav Meek MD Authorized by: Vladislav Meek MD Critical care provider statement: Critical care time (minutes): 35 Critical care was necessary to treat or prevent imminent or life-threatening deterioration of the following conditions: Cardiac failure Critical care was time spent personally by me on the following activities: Development of treatment plan with patient or surrogate, discussions with consultants, discussions with primary provider, evaluation of patient's response to treatment, examination of patient, obtaining history from patient or surrogate, ordering and performing treatments and interventions, ordering and review of laboratory studies, ordering and review of radiographic studies, pulse oximetry, re-evaluation of patient's condition and review of old charts I assumed direction of critical care for this patient from another provider in my specialty: no Care discussed with: admitting provider us Vladislav Meek MD PROCEDURE/MINOR SURGICAL O RDERABLES Final Result * XR CHEST SINGLE VIEW PORTABLE (08/31/2024 2:27 PM CDT) Anatomical Region Laterality Modality Chest N/A Computed Radiogr aphy 08/31/2024 2:36 PM CDT Impressions 08/31/2024 2:39 PM CDT IMPRESSION: 1. Mild patchy bibasilar airspace opacities, which is likely related to subsegmental atelectasis/scarring and less likely developing airspace disease. 2. Cardiomegaly. Narrative 08/31/2024 2:39 PM CDT EXAM DESCRIPTION: XR CHEST SINGLE VIEW PORTABLE REASON FOR STUDY: sob and dizziness x3 days. Patient has extensive cardiac hx with pacemaker. He states at home his pulse was high and his bp were low. No smoker TECHNIQUE: Single frontal radiographic view(s) of the chest. COMPARISON: 08/18/2024 FINDINGS: There is cardiomegaly. Left-sided cardiac device is noted. The pulmonary vasculature and mediastinum are grossly stable. There is no definite evidence of a pneumothorax. There is no definite evidence of a pleural effusion. There are mild patchy bibasilar airspace opacities. The osseous structures are acutely grossly unremarkable. THIS IS AN ELECTRONICALLY VERIFIED FINAL REPORT 08/31/2024 2:36 PM - Electronically signed by Carina Saunders D.O. PS: PS Report ID: [id number] Reading Location: [id number] Procedure Note Carina Saunders DO - 08/31/2024 EXAM DESCRIPTION: XR CHEST SINGLE VIEW PORTABLE REASON FOR STUDY: sob and dizziness x3 days. Patient has extensive cardiac hx with pacemaker. He states at home his pulse was high and his bp were low. No smoker TECHNIQUE: Single frontal radiographic view(s) of the chest. COMPARISON: 08/18/2024 FINDINGS: There is cardiomegaly. Left-sided cardiac device is noted. The pulmonary vasculature and mediastinum are grossly stable. There is no definite evidence of a pneumothorax. There is no definite evidence of a pleural effusion. There are mild patchy bibasilar airspace opacities. The osseous structures are acutely grossly unremarkable. THIS IS AN ELECTRONICALLY VERIFIED FINAL REPORT 08/31/2024 2:36 PM - Electronically signed by Carina Saunders D.O. PS: PS Report ID: [id number] Reading Location: [id number] IMPRESSION: 1. Mild patchy bibasilar airspace opacities, which is likely related to subsegmental atelectasis/scarring and less likely developing airspace disease. 2. Cardiomegaly. Vladislav Meek MD IMG DIAGNOSTIC ORDERABLES Final Result * (ABNORMAL) NT-proBNP (08/31/2024 1:35 PM CDT) NT PROBNP 2,857.1(H) <450.0 pg/mL 08/31/2024 3:02 PM CDT [facility] Comment: AGE pg/mL INTERPRETATION All <300 Negative: HF (Heart Failure) unlikely 18 to <50 >=300.0 to <450.0 Indeterminate. Consider other causes of NT-proBNP elevation 50 to 75 >=300.0 to <900.0 Indeterminate. Consider other causes of NT-proBNP elevation >75 >=300.0 to <1800.0 Indeterminate. Consider other causes of NT-proBNP elevation 18 to <50 >=450.0 Positive: HF likely 50 to 75 >=900.0 Positive: HF likely >75 >=1800.0 Positive: HF likely Total protein levels at or above 12.6 mg/dl may falsely decrease NT-proBNP values. Blood Venipuncture / Unknown 08/31/2024 1:35 PM CDT 08/31/2024 2:34 PM CDT Vladislav Meek MD CHEMISTRY ORDERABLES Final Result Performing Organization Address City/[facility]/ZIP Co de Phone Number [facility] [place] [address] * Blue Top Tube (08/31/2024 1:35 PM CDT) Blood No Phlebotomy Charged / Unknown 08/31/2024 1:35 PM CDT 08/31/2024 2:37 PM CDT Vladislav Meek MD HEMATOLOGY ORDERABLES Megan l Result [facility] [address] [place] [address] * EKG 12 LEAD (08/31/2024 1:23 PM CDT) Only the most recent of2 resultswithin the time period is included. Ventricular Rate 96 BPM EXTERNAL EKG Atrial Rate 96 BPM EXTERNAL EKG P-R Interval 196 ms EXTERNAL EKG QRS Duration 182 ms EXTERNAL EKG Q-T Duration 426 ms EXTERNAL EKG QTC CALCULATION 538 ms EXTERNAL EKG R [place] 231 degrees EXTERNAL EKG T [place] 39 degrees EXTERNAL EKG 08/31/2024 1:23 PM CDT Impressions EXTERNAL EKG - 09/01/2024 7:24 PM CDT Atrial-sensed ventricular-paced rhythm Abnormal ECG When compared with ECG of 18-AUG-2024 11:29, Vent. rate has increased BY 20 BPM Confirmed by Therese Estrada ([id number]) on 09/01/2024 7:24:25 PM Narrative Procedure Note Therese Estrada MD PhD - 09/01/2024 IMPRESSION: Atrial-sensed ventricular-paced rhythm Abnormal ECG When compared with ECG of 18-AUG-2024 11:29, Vent. rate has increased BY 20 BPM Confirmed by Therese Estrada ([id number]) on 09/01/2024 7:24:25 PM us Vladislav Meek MD IMG ECG ORDERABLES Final R esult Performing Organization Address City/[facility]/ZIP Co de Phone Number EXTERNAL EKG * EKG SCAN (08/31/2024 12:00 AM CDT) Only the most recent of2 resultswithin the time period is included. 08/31/2024 us Provider Scan IMG ECG ORDERABLES Final Result RESULTING AGENCY * XR SHOULDER COMPLETE LEFT (08/18/2024 2:30 PM CDT) Anatomical Region Laterality Modality UPPER EXTREMITY, shoulder Left Digita l Radiography 08/18/2024 2:41 PM CDT Impressions 08/18/2024 2:43 PM CDT IMPRESSION: 1. No acute fracture. 2. 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 Narrative 08/18/2024 2:43 PM CDT EXAM DESCRIPTION: XR SHOULDER COMPLETE LEFT REASON FOR STUDY: c/o left shoulder pain that radiated into his back starting yesterday. No injury, no surgery. TECHNIQUE: There are 4 views of the left shoulder COMPARISON: Prior exam 06/29/2014 FINDINGS: Normal mineralization. No acute fracture or dislocation. Mild osteoarthritis glenohumeral joint. More moderate of the AC joint. Type 2 acromion. Adjacent ribs and soft tissues are unremarkable. AICD overlies left chest new from prior. THIS IS AN ELECTRONICALLY VERIFIED FINAL REPORT 08/18/2024 2:41 PM - Electronically signed by Pedro WOODSON: KANDICE Report ID: [id number] Reading Location: [id number] Procedure Note Pedro Ozuna MD - 08/18/2024 EXAM DESCRIPTION: XR SHOULDER COMPLETE LEFT REASON FOR STUDY: c/o left shoulder pain that radiated into his back starting yesterday. No injury, no surgery. TECHNIQUE: There are 4 views of the left shoulder COMPARISON: Prior exam 06/29/2014 FINDINGS: Normal mineralization. No acute fracture or dislocation. Mild osteoarthritis glenohumeral joint. More moderate of the AC joint. Type 2 acromion. Adjacent ribs and soft tissues are unremarkable. AICD overlies left chest new from prior. THIS IS AN ELECTRONICALLY VERIFIED FINAL REPORT 08/18/2024 2:41 PM - Electronically signed by Pedro WOODSON: KANDICE Report ID: [id number] Reading Location: [id number] IMPRESSION: 1. No acute fracture. 2. 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 Kalugotla Bria Berg MD IMG DIAGNOSTIC ORDERABLE S Final Result * XR CHEST 2 VIEWS (08/18/2024 12:14 PM CDT) Anatomical Region Laterality Modality Chest N/A Digital Radiogra phy 08/18/2024 1:20 PM CDT Impressions 08/18/2024 1:22 PM CDT IMPRESSION: No acute findings. Narrative 08/18/2024 1:22 PM CDT EXAM DESCRIPTION: XR CHEST 2 VIEWS REASON FOR STUDY: c/o right shoulder pain that radiated into his back and now remains in his back. Patient states it started last night, but denies SOB unless exerting himself. Patient has hx of pacemaker and states he was told he had a heart attack at some point TECHNIQUE: 2 radiographic view(s) of the chest. COMPARISON: Chest radiograph 04/20/2023 FINDINGS: The cardiomediastinal silhouette appears normal. There is no airspace consolidation or pleural effusion. Cardiac device is again seen. THIS IS AN ELECTRONICALLY VERIFIED FINAL REPORT 08/18/2024 1:20 PM - Electronically signed by Alok Subramanian M.D. JR: Report ID: [id number] Reading Location: [id number] Procedure Note Alok Subramanian MD - 08/18/2024 EXAM DESCRIPTION: XR CHEST 2 VIEWS REASON FOR STUDY: c/o right shoulder pain that radiated into his back and now remains in his back. Patient states it started last night, but denies SOB unless exerting himself. Patient has hx of pacemaker and states he was told he had a heart attack at some point TECHNIQUE: 2 radiographic view(s) of the chest. COMPARISON: Chest radiograph 04/20/2023 FINDINGS: The cardiomediastinal silhouette appears normal. There is no airspace consolidation or pleural effusion. Cardiac device is again seen. THIS IS AN ELECTRONICALLY VERIFIED FINAL REPORT 08/18/2024 1:20 PM - Electronically signed by Alok Subramanian M.D. JR: Report ID: [id number] Reading Location: [id number] IMPRESSION: No acute findings. Shree CHAMPAGNE DIAGNOSTIC ORDERABLE S Final Result from Last 3 Months Insurance MEDICARE C [facility] Advance Directives Documents on File Type Date Recorded Patient Detective Automobile Section Expl anation Power of Mail Messenger Contractor for Health Care 10/24/2024 11:52 AM POA-, 10/24/2024 * Full Code (Latest Code Status on File) Date Activated Date Inactivated Comments 10/23/2024 2:56 PM CPR-Full Treatm ent: FULL ARREST: Attempt Resuscitation/CPR wit intubation and mechanical ventilation. PRE-ARREST: Use entire range of life support measures to stabilize the patient. * Full Code Date Activated Date Inactivated Comments 08/31/2024 5:54 PM 10/23/2024 2:56 PM CPR-Full Gisell tment: FULL ARREST: Attempt Resuscitation/CPR wit intubation and mechanical ventilation. PRE-ARREST: Use entire range of life support measures to stabilize the patient. Care Teams Cd Mixer Helper Relationship Specialty Start Date End Date Ralph Holland MD PCP - General Internal Medicine 11/24/15
--- OUTSIDE RECORDS SUMMARY | 2024-11-05 12:34 | XMS_ITS | Clinical Summary ---
Author Organization [facility] Address [address] [place] [address] Care Team Providers Care Telephone Worker Name Role Phone Ralph Holland MD Primary Care Provider [phone] Source Comments [facility],non-owned Affiliates and Associated Physician Practices is amultiple site organization consisting of ambulatory clinics and hospital sitesin [place], [place], [place] and [place]. This disclosure is being madepursuant to the Care Everywhere program and may not contain all information available regarding this patient. Last updated 17.[facility] [employer] (P) Social History Tobacco Use Types Packs/Day Years Used Date Smoking Tobacco: Never Assessed Sex and Gender Information Value Date Recorded Sex Assigned at Not on file Legal Sex Male 2:57 PM CDT Gender Identity Not on file Sexual Orientation Not on file Plan of Treatment Health Maintenance Due Date Last Done Comments HEPATITIS C SCREENING 05/31/1963 DTAP/TDAP/TD VACCINES (1 - Tdap) 1965 PNEUMOCOCCAL VACCINE 50+ (1 of 1 - PCV) 1996 ZOSTER VACCINE (1 of 2) 1996 Respiratory Syncytial Virus (RSV) Vaccine Pt: or over 60 yrs (1 - 1-dose 75+ series) 2021 DEPRESSION SCREENING 02/15/2024 MEDICARE AWV CALENDAR YEAR 2024 COVID-19 VACCINE (1 - 2023-2 5 season) 2024 INFLUENZA VACCINE (#1) 2024 HEPATITIS B VACCINE Aged Out No [...] on patient's age to complete this topic Insurance [facility] MANAGED MEDICARE ADV Member Subscriber Plan / Payer (Ef fective 2019-Present) Name:Za Villatoro Relation to Subscriber:Self Name:ZA VILLATORO Payer ID:[id number] (NAIC) Type:Medicare-Managed Care Address: [address] MANAGED MEDICARE ADV SELF PAY NO INSURANCE Member Subscriber Plan / Payer (Ef fective for All Dates) Name:Za Villatoro Member ID:Not on file Relation to Subscriber:Not on file Name:ZA VILLATORO Subscriber ID:Not on file (Home) Address: [address] [place] [address] Payer ID:Not on file Group ID:Not on file Type:Self Pay Address: [facility] MANAGED MEDICARE ADV Care Teams Telephone Worker Relationship Specialty Start Date End Date Ralph Holland MD [address] [place] [phone] PCP - General 04/17/18
--- OUTSIDE RECORDS SUMMARY | 2024-11-05 12:34 | XMS_ITS | Encounter Summary ---
Author Organization [facility] [employer] [facility] Address [address] [place] [address] Care Team Providers Care Business Department Chair Name Role Phone Ralph Holland MD Primary Care Provider + Encounter Details Date Type Department Care Team ([facility] Contact Info) Description 11/01/2024 Orders Only [facility] [address] [place] [address] Grayson Vazquez MD [facility] [employer] [address] [place] [phone] Social History Tobacco Use Types Packs/Day Years Used Date Smoking Tobacco: Never Passive Smoke Exposure: Never Smokeless Tobacco: Never Alcohol Use Standard Drinks/Week Comments Yes 0 (1 standard drink = 0.6 oz pur e alcohol) occasional Sex and Gender Information Value Date Recorded Sex Assigned at Not on file Legal Sex Male 2:33 PM CDT Gender Identity Not on file Sexual Orientation Not on file documented as of this encounter Plan of Treatment Upcoming Encounters Date Type Department Care Team (Late Contact Info) Description 11/12/2024 4:30 PM CDT Telephone Check Up [facility] [address] [place] [address] Grayson Vazquez MD [address] [employer] [address] [place] [phone] documented as of this encounter Procedures Procedure Name Priority Date/Time Associated Diagnosis Comments COMPREHENSIVE METABOLIC PANEL Routine 10/31/2024 2:56 PM CDT CBC WITH AUTODIFFERENTIAL Routine 2024 12:52 PM CDT documented in this encounter Results * COMPREHENSIVE METABOLIC PANEL (10/31/2024 2:56 PM CDT) Blood us Grayson Vazquez MD CHEMISTRY ORDERABLES Final Resu lt * CBC WITH AUTODIFFERENTIAL (10/31/2024 12:52 PM CDT) Blood us Grayson Vazquez MD HEMATOLOGY ORDERABLES Final Res ult documented in this encounter Visit Diagnoses Not on filedocumented in this encounter Care Teams Business Department Chair Relationship Specialty Start Date End Date Ralph Holland MD [address] [place] [address] PCP - General Internal Medicine 09/01/22 documented as of this encounter
--- OUTSIDE RECORDS SUMMARY | 2024-11-05 12:34 | XMS_ITS | Clinical Summary ---
Author Organization [facility] Address [address] [place] [address] Care Team Providers Care Hot Box Operator Name Role Phone Ralph Holland MD Primary Care Provider [phone] Miscellaneous, Not In File Unavailable Unava ilable Allergies Active Allergy Reactions Criticality Noted Date Comments Sulfa (Sulfonamide Antibiotics) Fever Medium 12/08/2021 Patient states he has fever, chills and sweating with sulfa drugs Sulfasalazine Other (See comments) Low 08/29/2015 Fever and hot flashes Medications allopurinol (ZYLOPRIM) 300 mg tablet Take 1 tablet (300 mg total) by mouth daily 5 03/31/19 18 Active POTASSIUM CHLORIDE ER 10 mEq CR capsule Take 1 tablet/capsul e (10 mEq total) by mouth daily 0 03/22/19 18 Active glimepiride (AMARYL) 2 mg tablet Take 1 tablet (2 mg total) by mouth daily before breakfast 0 11/19/19 19 Active cholecalcifero l (VITAMIN D-3) 25 mcg (1,000 unit) tablet Take 2 tablets (2,000 Units total) by mouth daily Active cyanocobalamin (Vitamin B-12) 1,000 mcg tabletIndicati ons:Prevention of Vitamin B12 Deficiency Take 1 tablet (1,000 mcg total) by mouth daily Active omeprazole (PriLOSEC) 40 mg capsule Take 1 capsule (40 mg total) by mouth daily as needed Active traZODone (DESYREL) 50 mg tablet Take 1 tablet (50 mg total) by mouth nightly as needed Active Xigduo XR 10-1,000 mg tablet, IR & ER, biphasic 24hr Take 1 tablet by mouth daily 05/23/19 22 Active solifenacin (VESIcare) 10 mg tablet Take 1 tablet (10 mg total) by mouth daily 09/14/19 24 Active vericiguat (Verquvo) 2.5 mg tablet TAKE 1 TABLET(2.5 MG) BY MOUTH DAILY 30 tablet 1 09/04/19 25 Active atorvastatin (LIPITOR) 20 mg tablet Take 1 tablet (20 mg total) by mouth daily 07/06/19 25 Active cyclobenzaprin e (FLEXERIL) 10 mg tablet Take 1 tablet (10 mg total) by mouth 3 (three) times a day as needed Active carvediloL (COREG) 25 mg tablet Take 1 tablet (25 mg total) by mouth 2 (two) times a day with meals 180 tablet 6 10/18/19 25 Active sacubitriL-karla sartan (ENTRESTO) 49-51 mg tabletIndicati ons:chronic heart failure Take 1 tablet by mouth 2 (two) times a day 180 tablet 6 10/18/19 25 Active eplerenone (INSPRA) 25 mg tablet TAKE 1 TABLET(25 MG) BY MOUTH DAILY 90 tablet 2 11/06/19 25 Active sjcdi-3-zbm-ep a-dpa-fish oil 1,050-1,200 mg capsule 1 capsule 025 Discontinued(Nolan francis Reported) Entresto 97-103 mg tablet TAKE 1 TABLET BY MOUTH TWICE DAILY 180 tablet 5 07/18/19 24 025 Discontinued(Al ternate therapy) eplerenone (INSPRA) 25 mg tablet TAKE 1 TABLET(25 MG) BY MOUTH DAILY 90 tablet 2 02/09/20 24 025 Discontinued carvediloL (COREG) 25 mg tablet Take 1 tablet (25 mg total) by mouth 2 (two) times a day with meals 180 tablet 3 07/11/19 25 025 Discontinued dapaglifloz propaned-metfo rmin 10-1,000 mg tablet, IR & ER, biphasic 24hr Take by mouth 025 Discontinued(Du plicate order) Active Problems Problem Noted Date Diagnosed Date ICD (implantable cardioverte r-defibrillator), biventricular, in situ 08/19/2020 Overview (12/20/2022): Cohn Belcamp BI-V ICD imp on 08/19/20 for NICM. (Lenard - Salo. Scooter Trujillo. Bixby remote. BIO RA Lead Solia [id number] 06/19/19 SJM RV Lead [id number] SJM LV Lead [id number] 08/19/20 Cardiomyopathy 08/19/2020 Chronic systolic congestive heart [...] week. I advised him to follow-up with brush finisher. We discussed life vest and he is [...] Encounters Date Type Department Care Team Description 10/17/2024 10:30 AM CDT Office Visit [facility] Cardiology [address] [place] [address] [address] [place] [phone] Candelario Trujillo MD NICM (nonischemic cardiomyopathy) (HCC) (Primary Dx); Chronic systolic congestive heart failure (HCC); CHB (complete heart block); Biventricular ICD (implantable cardioverter-defibr illator) in place 09/10/2024 3:45 PM CDT Ancillary Procedure [facility] [address] [facility] [address], [place] [address] ICD (implantable cardioverter-defibr illator), biventricular, in situ (Primary Dx); NICM (nonischemic cardiomyopathy) (HCC) 09/10/2024 10:00 AM CDT Office Visit [facility] Cardiology [address] [place] [address] [address] [place] [phone] Wendy Velázquez NP History of non-ST elevation myocardial infarction (NSTEMI) (Primary Dx); Chronic systolic congestive heart failure (HCC); NICM (nonischemic cardiomyopathy) (HCC); Essential hypertension; Hospital discharge follow-up 08/31/2024 Telephone [facility] Cardiology [address] [place] [address] [place] [phone] Candelario Trujillo MD 08/06/2024 Orders Only [facility] Health Information Management [address] [place] [id number] Scanning, Provider from Last 3 Months Immunizations Immunization Administration Dates Next Due Influenza, Quadrivalent, Hig h Dose, Preservative Free, Intrr 12/02/2020,01/02/2020 Influenza, Trivalent, High D ose, Split, Preservative Free, Intramuscular 12/08/2018 Pfizer SARS-CoV-2 Monovalent Vaccination (12+ Yrs) PURPLE 05/04/2020,04/13/2020 Surgical History Surgery Date Site/Laterality Comments HERNIA REPAIR 1998 THYROIDECTOMY partial CARDIAC PACEMAKER PLACEMENT Bi[employer] UPPER GASTROINTESTINAL ENDOSCOPY COLONOSCOPY Medical History Medical History Date Comments Hypertension 1989 Kidney stone 1984 Gout GERD (gastroesophageal reflux disease) Type 2 diabetes mellitus Sleep apnea 2014 CPAP Cardiomyopathy CHF (congestive heart failure) (HCC) Arrhythmia HX AV block, 2 d egree T 2, Complete Heart Block, s/p pacemaker Personal history of other me dical treatment Life Vest external defibrill ator Colon polyp Neuroendocrine tumor (HCC) duode num Heart disease Family History Medical History Relation Name Comments Lung cancer Father Brain Tumor Mother Joanne Villatoro inoperable Diabetes Mother Joanne Villatoro Hypertension Mother Joanne Villatoro Cancer Son Diabetes Son Gout Son Hypertension Son Relation Name Status Comments Father (Age 76) Mother Joanne Villatoro (Age 80) Son Social History Tobacco Use Types Packs/Day Years Used Date Smoking Tobacco: Never Smokeless Tobacco: Former Tobacco Cessation:Counseling Given: Not Answered Alcohol Use [...] on file Legal Sex Male 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 Gender Identity Male 08/06/2020 10:27 AM CDT Sexual Orientation Not on file Obstetrics History Last Filed Vital Signs Vital Sign Reading Time Taken Comments Blood Pressure 90/62 10/17/2024 10:27 AM CDT Pulse 71 10/17/2024 10:27 AM CDT Temperature 36 C (96.8 F) 06/15/2022 10:33 AM CDT Respiratory Rate 17 06/15/2022 11:33 AM CDT Oxygen Saturation 96% 10/17/2024 10:27 AM CDT Inhaled Oxygen Concentration - - Weight 84 kg (185 lb 3.2 oz) 10/17/2024 10:27 AM CDT Height 182.9 cm (6') 10/17/2024 10:27 AM CDT Body Mass Index 25.12 10/17/2024 10:27 AM CDT Plan of Treatment Health Maintenance Due Date Last Done Comments Depression Screening 1945 Hepatitis C Screening 1945 DTaP/Tdap/Td Vaccine (1 - Tdap) 1957 Hepatitis B Screening 1964 Zoster Vaccine (1 of 2) 1996 Well Visit 65+ 06/06/2011 Pneumococcal vaccine 65+ (2 of 2 - PCV) 11/15/2015 11/14/2014 Fall Risk Assessment 06/16/2023 06/15/2022 Covid-19 Vaccine (3 - 2024-2 6 season) 2024 05/04/2020, 04/13/2020 Influenza Vaccine (#1) 2024 , 01/02/2020, 12/08/2018, Additional history exists Medical Devices Implanted Type Area Medical Health Researcher Device Identifier Shelf Expiration Date Model / Serial / Lot Cohn Vascular [id number] Defib Cardiac [id number] Belcamp Hf Df4 Is-4 Is-1 Cnctr - [id number] - [id number] Implanted:Qty: 1 on 08/19/2020 by Ildefonso Bridges MD at [facility] ICD Cohn Vascular [id number] 08/13/2022 C [id number] / [id number] / [employer] 7121q/65 Durata Sj4 7fr 65cm 2 Coil True Bipolar Cardioverter - [id number] - [id number] Implanted:Qty: 1 on 08/19/2020 by Ildefonso Bridges MD at [facility] Lead [employer] [id number] 03/16/2021 7121Q/65 / [id number] / [employer] 1458ql/86 Quartet 4.7fr 86cm Quadripolar Is-4 Llll Connector 16 Curve Low - [id number] - [id number] Implanted:Qty: 1 on 08/19/2020 by Ildefonso Bridges MD at [facility] Lead [employer] [id number] 05/15/2023 1458[facility]86 / [id number] / Biot[employer]ik Inc [id number] Endocardial Pacing Lead Promri Solia T 60 - [id number] Implanted:Qty: 1 on 06/19/2019 by Tanmay Polanco MD at [facility] [employer] Inc 06/18/2020 [id number] / / Bi[employer] Inc [id number] Endocardial Pacing Lead Promri Solia Jt 53 - [id number] Implanted:Qty: 1 on 06/19/2019 by Tanmay Polanco MD at [facility] [employer] Inc 06/18/2020 [id number] / / Medtronic Inc [id number] Tyrx 3.3x2.9in Large Envelope Absorbable Polyarylate Minocycline - [id number] Implanted:Qty: 1 on 06/19/2019 by Tanmay Polanco MD at [facility] [employer] 12/20/2019 CMRM [id number] / / GeoPage Jose [id number] Device Closure Angio-Seal Vip Bondek-Plus Polyglyd L70 Cm Od6 Fr Odsec.035 In Vascular - [id number] Implanted:Qty: 1 on 07/31/2020 by Candelario Trujillo MD at [facility] [id number] / / Explanted Type Area Medical Health Researcher Device Identifier Shelf Expiration Date Model / Serial / Lot Biotronik Inc [id number] Edora Promri 56f82i6.5mm 1 Chamber Rate Adaptive Unipolar Bipolar - [id number] Implanted:Qty: 1 on 06/19/2019 by Tanmay Polanco MD at [facility] Explanted:Qty: 1 on 08/19/2020 by Ildefonso Bridges MD at [facility] [employer] Inc 06/18/2020 [id number] / / Procedures Procedure Name Priority Date/Time Associated Diagnosis Comments DEVICE CHECK - REMOTE Routine 09/10/2024 1:45 PM CDT NICM (nonischemic cardiomyopathy) (HCC) SCAN - LABS 08/06/2024 from Last 3 Months Results * DEVICE CHECK - REMOTE (09/10/2024 1:45 PM CDT) Anatomical Region Laterality Modality Other Narrative 09/17/2024 8:52 PM CDT Table formatting from the original result was not included. BiV ICD CHECK (REMOTE) Patient ID: Za Villatoro is a 79 y.o. male. This patient received a Cohn BiV ICD. They had a routine remote transmission on 09/10/2024 Device implant indications: Nonischemic cardiomyopathy Interrogation of the patient's device demonstrates the following: Presenting EGM: A paced Bi V paced @ 70 bpm Original Device Settings Right Atrium Right Ventricle Left Ventricle Sensitivity (mV) 0.5 mV Auto mV N/a mV Pacing Outputs 5.0 V @ 1.0 ms 1.5 V @ 0.5 ms 1.5 V @ 1.0 ms Testing Measurements Right Atrium Right Ventricle Left Ventricle Sensitivity (mV) 1.4 mV 7.9 mV N/a mV Impedence (Ohms) 880 ohms 690 ohms 1025 ohms Pace Threshold Not done 0.5 V @ 0.5 ms Not done Pacing % 89 % 95 % 95 % HV Lead Impedance N/A 56 ohms N/A Battery Status: 2 years to MELANIA, charge time 9.3 seconds. Episodes last 90 days/Comments: AF Huxley 0 % No ventricular high rates NORMAL DEVICE FUNCTION PROGRAMMED MEDICATIONS: Anti-coagulant(s): None Anti-arrhythmic(s): Coreg 25 mg twice daily PLAN: 1) Cohn BiV ICD evaluation 2) Cohn remote transmission scheduled in 3 months. 3) Programming appropriate for device settings Tiana Perla RN Jamal Miller III, MD [facility] PROCEDURES Final Result * SCAN - LABS (08/06/2024) Provider Scanning Final Result from Last 3 Months Insurance [facility] MEDICARE ADVANTAGE [facility] MEDICARE ADVANTAGE Advance Directives For more information, please contact: [phone] * Full Code (Latest Code Status on File) Date Activated Date Inactivated Comments 06/15/2022 8:47 AM 06/15/2022 3:47 PM * Full Code Date Activated Date Inactivated Comments 08/19/2020 8:56 PM 08/20/2020 3:19 PM Care Teams Hot Box Operator Relationship Specialty Start Date End Date Ralph Holland MD [address] [facility] [place], [place] [phone] PCP - General Internal Medicine 04/14/17 Miscellaneous, Not In File 08/19/20
--- OUTSIDE RECORDS SUMMARY | 2024-11-05 12:34 | XMS_ITS | Encounter Summary ---
Author Organization [facility] Address [address] [place] [address] Care Team Providers Care Lotus Notes Administrator Name Role Phone Ralph Holland MD Primary Care Provider [phone] Encounter Details Date Type Department Care Team (Late st Contact Info) Description 06/08/2019 Lab Requisition [facility] MICROBIOLOGY [address] [place] [address] Dontrell Moreira MD Social History Tobacco Use [...] on filedocumented in this encounter Care Teams Lotus Notes Administrator Relationship Specialty Start Date End Date Ralph Holland MD [address] [place] [phone] PCP - General 04/17/18 documented as of this encounter
== END 2024-11-05 11:22 | disposition home or self-care (01) ==
LOC: ANHLAB 11:22
PROVIDERS: PCP Internal Medicine; Visit Provider Internal Medicine Hematology & Oncology
DX: D3A.8 Other benign neuroendocrine tumors (principal)
CPT/HCPCS: 86316

== ENCOUNTER 2024-11-05 14:46 | Outpatient (CLI) | payer MEDICARE, SELFPAY ==
--- NOTE | ~2024-11-05 | CT_ITS ---
EXAMINATION: CT abdomen pelvis w con DATE: 11/05/2024 15:09 INDICATION: Neuroendocrine tumor TECHNIQUE: Computed tomography (CT) of the abdomen and pelvis was performed with 100 cc Omnipaque 350 intravenous contrast. The dose-length product was 556.75 mGy-cm. Automated exposure control and iterative reconstruction technique were employed. COMPARISON: CT dated 04/16/2024 FINDINGS: Lung bases are unremarkable. Heart size normal. No significant pleural or pericardial effusion. There are multiple liver cysts. Fatty infiltration of the liver. There are calcified granulomas of the spleen. There are multiple bilateral adrenal masses unchanged, many of which contain macroscopic fat, consistent with benign myelolipomas. There are bilateral renal cysts. There is bilateral renal cortical thinning. Gallbladder contains stones. There is a 4.2 cm infrarenal abdominal aortic aneurysm. Nonobstructive bowel gas pattern. No free air or free fluid. No abnormal pelvic masses or fluid collections. Enlarged prostate gland. Moderate lower thoracic and lumbar spondylosis. There is dextro curvature of the thoracolumbar spine. Stable 1.7 cm hemorrhagic cyst lower pole of the right kidney. There is a small lipoma of the duodenum. Moderate lumbar spondylosis. IMPRESSION: 1. Stable hemorrhagic cyst of the right kidney measuring 1.7 cm. 2: Stable 4.2 cm infrarenal abdominal aortic aneurysm. Reviewed, dictated and finalized at location O.
--- OUTSIDE RECORDS SUMMARY | 2024-11-05 11:00 | XMS_ITS | Encounter Summary ---
Author Organization [facility] Address [address] [place] [address] Care Team Providers Care Production Assistant Name Role Phone Ralph Holland MD Primary Care Provider + Reason for Referral * CT Scan (Urgent) - Authorized Specialty Diagnoses / Procedures Referred By Contac t Referred To Contact Diagnoses Neuroendocrine tumor (CMS/HCC) Procedures CT ABDOMEN PELVIS W CONTRAST Grayson Vazquez MD [address] [place] [address] Phone: tel: fax: Referral ID Status Reason Start Date Expiration Date V isits Requested Visits Authorized [id number] Authorized 11/05/2024 12/06/2025 1 1 Reason for Visit * Reason Comments Cancer Follow Up Encounter Details Date Type Department Care Team (Late st Contact Info) Description 11/05/2024 11:00 AM CDT Office Visit [facility] Oncology and Hematology - [place] [facility] [address] [facility] [address] [place] [address] Grayson Vazquez MD [address] [place] [address] Neuroendocrine tumor (CMS/HCC) (Primary Dx) [...] Progress Notes * Grayson Vazquez MD - 11/05/2024 11:08 AM CDT [...] was referred to [facility]. Diana an at [facility] for endoscopicresection. EGD and resection was attempted [...] 11/12/2024 4:30 PM CDT Telephone Check Up [facility] Oncology and Hematology [place] [address] [place] [address] Grayson Vazquez MD [address] [facility] [address] [place] [address] Scheduled Orders Name Type Priority [...] site documented in this encounter Care Teams Production Assistant Relationship Specialty Start Date End Date Ralph Holland MD [address] [place] [phone] PCP - General Internal Medicine 09/01/22 documented as of this encounter
--- OUTSIDE RECORDS SUMMARY | 2024-11-05 15:03 | XMS_ITS | Clinical Summary ---
Author Organization [facility] Address [address] [place] [address] Phone Care Team Providers Care Noodle Maker Name Role Phone Ralph Holland MD Primary Care Provider [phone] Allergies Active Allergy Reactions Criticality Noted Date [...] 1:05 PM CDT Hospital Encounter [facility] Med Surg [address] [place] [phone] Ramsey Osborne, Barbie Paredes, BUSINESS SERVICES COORDINATOR, FILAMENT SHAPER CarMaria Eugenia phan MD Acute DVT (deep venous thrombosis) Discharge Disposition: Discharged to home or Selfcare 10/23/2024 Travel 09/05/2024 9:30 PM CDT - 09/05/2024 11:40 PM CDT Emergency [facility] Emergency [address] [place] [address] Discharge Disposition: LWBS 09/05/2024 Travel 09/03/2024 Telephone [facility] [address] [place] [phone] Ralph Holland MD Advice Only 09/03/2024 Nurse Triage [facility] [address] [place] [phone] Daisha Baker RN Hypotension 08/31/2024 1:27 PM CDT - 09/03/2024 1:08 PM CDT Hospital Encounter [facility] Med Surg [address] [place] [phone] Vladislav Meek MD Dianati, Behfar, MD Bismack, Gregory Thomas, MD NSTEMI (non-ST elevated myocardial infarction) Discharge Disposition: Discharged to home or Selfcare 08/31/2024 Travel 08/18/2024 11:42 AM CDT - 08/18/2024 3:24 PM CDT Emergency [facility] Emergency [address] [place] [phone] Shree Berg MD Acute pain of left shoulder Discharge Disposition: Discharged to home or Selfcare 08/18/2024 Travel from Last 3 Months Immunizations Immunization Administration Dates Next Due Influenza Vaccine greater than 3 yrs 11/14/2014 Influenza Vaccine, Quadrivalent, PF 12/08/2017,1 Influenza, Trivalent, Adjuvanted, PF 10/24/2024 Influenza, high-dose, trivalent, PF 11/27/2014 Pneumococcal Vaccine Adult - 23 Valent 5 Pneumococcal conjugate PCV20 , polysaccharide [id number] conjugate, adjuvant, PF 09/01/2024 Family History Medical [...] declined 10/23/2024 How often do you attend jew or baptist serv ices? Patient declined 10/23/2024 Do you belong to any clubs o r organizations such as jew groups, unions, fraternal or athletic groups, or [...] medical care, and heating? Patient declined 10/23/2024 [facility] [place] - Occupational Stress Questionnaire Answer Date Recorded [...] any time in the past 12 m [facility], were you homeless or living in a penitentiary (including now)? Patient declined 10/23/2024 [facility] Utilities Answer Date Recorded In the past 12 months has th e [employer], gas, oil, or water company threatened to shut off services in your home? Patient declined 10/23/2024 Sexually Active Control Partners Comments Yes Female Sex and Gender Information Value Date Recorded Sex Assigned at Not on file Legal Sex Male 10:39 PM CDT Gender Identity Not on file Sexual Orientation Not on file Occupation Industry Job Start Date Job End Date retired from [employer] Not on file Not on file Not [...] st Contact Info) Description 12/20/2024 10:30 AM HAT RENOVATOR Office Visit [facility] [place] [address] [place] [phone] Lina Tang MD [address] [phone] Health Maintenance Due Date Last Done Comments [...] of20 resultswithin the time period is included. [employer] Signature GLUCOSE,BEDSID E POCT 158(H) 70 - 99 mg/dL 10/25/2024 10:43 AM CDT [facility] Blood 10/25/2024 10:3 6 AM CDT 10/25/2024 10:43 AM CDT us None Provider POINT OF CARE TESTING Final Resu lt [facility] [address] [place] [address] * (ABNORMAL) CBC with Auto Differential (10/25/2024 7:00 AM CDT) Only the most recent of8 resultswithin the time period is included. WBC 9.40 4.00 - 12.00 10(3)/[facility] 10/25/2024 7:33 AM CDT [facility] RBC 4.94 4.40 - 5.80 10(6)/[facility] 10/25/2024 7:33 AM CDT [facility] HEMOGLOBIN (HGB) 15.5 13.0 - 16.5 g/dL 10/25/2024 7:33 AM CDT [facility] HEMATOCRIT (HCT) 47.3 38.0 - 50.0 % 10/25/2024 7:33 AM CDT [facility] MCV 95.7 82.0 - 96.0 fL 10/25/2024 7:33 AM CDT [facility] MCH 31.4 26.0 - 32.0 pg 10/25/2024 7:33 AM CDT [facility] MCHC 32.8 31.0 - 36.0 g/dL 10/25/2024 7:33 AM CDT [facility] PLATELET COUNT 154 140 - 440 10(3)/[facility] 10/25/2024 7:33 AM CDT [facility] RDW 14.5 11.8 - 15.5 % 10/25/2024 7:33 AM CDT [facility] MPV 11.1 8.0 - 12.6 fL 10/25/2024 7:33 AM CDT [facility] NEUTROPHILS 66.6 40.0 - 68.0 % 10/25/2024 7:33 AM CDT [facility] LYMPHOCYTES 20.0 19.0 - 49.0 % 10/25/2024 7:33 AM CDT [facility] MONOCYTES 8.9 3.0 - 13.0 % 10/25/2024 7:33 AM CDT [facility] EOSINOPHILS 3.7 0.0 - 8.0 % 10/25/2024 7:33 AM CDT [facility] BASOPHILS 0.4 0.0 - 1.0 % 10/25/2024 7:33 AM CDT [facility] IMMATURE GRANULOCYTE 0.4 0.0 - 0.4 % 10/25/2024 7:33 AM CDT [facility] ABSOLUTE NEUTROPHILS 6.25(H) 1.40 - 5.30 10(3)/[facility] 10/25/2024 7:33 AM CDT [facility] ABSOLUTE LYMPHOCYTES 1.88 0.90 - 3.30 10(3)/[facility] 10/25/2024 7:33 AM CDT [facility] ABSOLUTE MONOCYTES 0.84 0.10 - 0.90 10(3)/[facility] 10/25/2024 7:33 AM CDT [facility] ABSOLUTE EOSINOPHIL 0.35 0.00 - 0.50 10(3)/[facility] 10/25/2024 7:33 AM CDT [facility] ABSOLUTE BASOPHILS 0.04 0.00 - 0.10 10(3)/[facility] 10/25/2024 7:33 AM CDT [facility] ABSOLUTE IMMATURE GRANULOCYTE 0.04(H) 0.00 - 0.03 10 (3) mcL. 10/25/2024 7:33 AM CDT [facility] NRBC PER 100 WBC 0 10/26/19 7:33 AM CDT [facility] Blood Venipuncture / Unknown 10/25/2024 7:00 AM CDT 10/25/2024 7:22 AM CDT us Barbie Tucker BUSINESS SERVICES COORDINATOR, FILAMENT SHAPER HEMATOLOGY ORDERABLES F inal Result [facility] [address] [place] [address] * Creatinine Blood w/ GFR (10/25/2024 7:00 AM CDT) CREATININE, BLOOD 1.10 0.70 - 1.30 mg/dL 10/25/2024 8:13 AM CDT [facility] GFR, ESTIMATED >60 >=60 10/25/2024 8:13 AM CDT [facility] Comment: Creatinine Clearance is the preferred criteria for selecting drug dose adjustments in renally impaired patients. The GFR is provided as additional pertinent clinical information. GFR is reported in mL/min/1.73 sq m. Calculation based on the 2020 Chronic Kidney Disease Epidemiology Collaboration (CKD-EPI) equation refit without adjustment for race. GFR, EST. >60 >=60 025 8:13 AM CDT [facility] Comment: Creatinine Clearance is the preferred criteria for selecting drug dose adjustments in renally impaired patients. The GFR is provided as additional pertinent clinical information. GFR is reported in mL/min/1.73 sq m. Calculation based on the 2009 Chronic Kidney Disease Epidemiology Collaboration (CKD-EPI). GFR, EST. NONAFRICAN >60 >=60 10/25/2024 8:13 AM CDT [facility] Comment: Creatinine Clearance is the [...] Eugenia Mcknight MD CHEMISTRY ORDERABLES Final Result [facility] [address] [place] [address] * (ABNORMAL) BMP with Ca, Total (10/25/2024 7:00 AM CDT) Only the most recent of5 resultswithin the time period is included. SODIUM 141 136 - 145 mmol/L 10/25/2024 7:55 AM CDT [facility] POTASSIUM 3.9 3.5 - 5.1 mmol/L 10/25/2024 7:55 AM CDT [facility] CHLORIDE 108(H) 98 - 107 mmol/L 10/25/2024 7:55 AM T [facility] CO2, VENOUS 24 22 - 30 mmol/L 10/25/2024 7:55 AM T [facility] ANION GAP 12.9 <18.0 mmol/L 10/25/2024 7:55 AM T [facility] GLUCOSE 125(H) 70 - 99 mg/dL 10/25/2024 7:55 AM CDT [facility] BUN 14 8 - 26 mg/dL 10/25/2024 7:55 AM T [facility] CREATININE, BLOOD 1.10 0.70 - 1.30 mg/dL 10/25/2024 7:55 AM [facility] BUN/CREATININE RATIO 13 12 - 20 ratio 10/25/2024 7:55 AM [facility] CALCIUM 8.4(L) 8.7 - 10.5 mg/dL 10/25/2024 7:55 AM [facility] GFR, ESTIMATED >60 >=60 10/25/2024 7:55 AM [facility] Comment: Creatinine Clearance is the preferred criteria for selecting drug dose adjustments in renally impaired patients. The GFR is provided as additional pertinent clinical information. GFR is reported in mL/min/1.73 sq m. Calculation based on the 2020 Chronic Kidney Disease Epidemiology Collaboration (CKD-EPI) equation refit without adjustment for race. GFR, EST. >60 >=60 025 7:55 AM [facility] Comment: Creatinine Clearance is the preferred criteria for selecting drug dose adjustments in renally impaired patients. The GFR is provided as additional pertinent clinical information. GFR is reported in mL/min/1.73 sq m. Calculation based on the 2009 Chronic Kidney Disease Epidemiology Collaboration (CKD-EPI). GFR, EST. NONAFRICAN >60 >=60 10/25/2024 7:55 AM [facility] Comment: Creatinine Clearance is the [...] ORDERABLES Fi nal Result Performing Organization Address [facility] Co de Phone Number [facility] [address] [place] [address] * RHYTHM STRIP (10/25/2024 12:00 AM CDT) Only the most recent of17 resultswithin the time period is included. 10/25/2024 us Provider Scan IMG ECG ORDERABLES Final Result Performing Organization Address [facility] de Phone Number RESULTING AGENCY * (ABNORMAL) APTT (PTT) (10/24/2024 1:55 PM CDT) Only the most recent of9 resultswithin the time period is included. PTT 81(H) 24 - 36 sec 10/24/2024 2:50 PM CDT [facility] Blood Venipuncture / Unknown 10/24/2024 1:55 PM CDT 10/24/2024 1:59 PM CDT Narrative [facility] - 10/24/2024 2:50 PM CDT Therapeutic range for unfractionated heparin at 0.3-0.7 U/mL is an aPTT value in the range of 71-100 seconds. Critical value for the PTT test is >= 122 seconds. us Barbie Tucker APRN, LUCIO HEMATOLOGY ORDERABLES F inal Result Performing Organization Address [facility] Co de Phone Number [facility] [address] [place] [address] * Critical Care (10/23/2024 1:55 PM CDT) Narrative Ramsey Osborne DO - 10/23/2024 1:55 PM CDT Ramsey Osboren DO 10/23/2024 3:49 PM Critical Care Performed [...] ORDERABLES Fi nal Result Performing Organization Address [facility] Co de Phone Number [facility] [address] [place] [address] * Protime (PT or Prothrombin Time) - baseline (10/23/2024 1:35 PM CDT) Only the most recent of2 resultswithin the time period is included. PROTIME-PATIENT 13.8 11.6 - 14.8 sec 10/23/2024 2:03 PM CDT [facility] INR 1.1 0.9 - 1.2 10/23/2024 2:03 PM CDT [facility] Comment: Therapeutic Ranges INR = 2.0-3.0: Venous thromb, atrial fib, pul embolism, tissue heart valve, ami. INR = 2.5-3.5: Mechanical heart valve Critical value for INR is >/= 4.5 Blood Venipuncture / Unknown 10/23/2024 1:35 PM CDT 10/23/2024 1:42 PM CDT us Ramsey Osborne DO HEMATOLOGY ORDERABLES F inal Result Performing Organization Address City/[facility] Co de Phone Number [facility] [address] [place] [address] * (ABNORMAL) CMP (Comprehensive Metabolic Panel) (10/23/2024 1:35 PM CDT) Only the most recent of3 resultswithin the time period is included. SODIUM 141 136 - 145 mmol/L 10/23/2024 2:04 PM CDT [facility] POTASSIUM 4.7 3.5 - 5.1 mmol/L 10/23/2024 2:04 PM CDT [facility] CHLORIDE 108(H) 98 - 107 mmol/L 10/23/2024 2:04 PM CDT [facility] CO2, VENOUS 27 22 - 30 mmol/L 10/23/2024 2:04 PM CDT [facility] ANION GAP 10.7 <18.0 mmol/L 10/23/2024 2:04 PM CDT [facility] GLUCOSE 134(H) 70 - 99 mg/dL 10/23/2024 2:04 PM CDT [facility] BUN 14 8 - 26 mg/dL 10/23/2024 2:04 PM CDT [facility] CREATININE, BLOOD 1.30 0.70 - 1.30 mg/dL 10/23/2024 2:04 PM CDT [facility] BUN/CREATININE RATIO 11(L) 12 - 20 ratio 10/23/2024 2:04 PM CDT [facility] TOTAL PROTEIN 7.0 6.0 - 8.0 g/dL 10/23/2024 2:04 PM CDT [facility] ALBUMIN 3.6 3.5 - 5.0 g/dL 10/23/2024 2:04 PM CDT [facility] A/G RATIO 1.1 1.0 - 2.2 10/23/2024 2:04 PM CDT [facility] CALCIUM 8.9 8.7 - 10.5 mg/dL 10/23/2024 2:04 PM CDT [facility] T BILI 0.8 0.2 - 1.2 mg/dL 10/23/2024 2:04 PM CDT [facility] SGOT (AST) 24 <43 U/L 10/23/2024 2:04 PM CDT [facility] SGPT (ALT) 22 <56 U/L 10/23/2024 2:04 PM CDT [facility] ALKALINE PHOSPHATASE 65 40 - 150 U/L 10/23/2024 2:04 PM CDT [facility] GFR, ESTIMATED 56(L) >=60 10/23/2024 2:04 PM CDT [facility] Comment: Creatinine Clearance is the preferred criteria for selecting drug dose adjustments in renally impaired patients. The GFR is provided as additional pertinent clinical information. GFR is reported in mL/min/1.73 sq m. Calculation based on the 2020 Chronic Kidney Disease Epidemiology Collaboration (CKD-EPI) equation refit without adjustment for race. GFR, EST. >60 >=60 2:04 PM CDT [facility] Comment: Creatinine Clearance is the preferred criteria for selecting drug dose adjustments in renally impaired patients. The GFR is provided as additional pertinent clinical information. GFR is reported in mL/min/1.73 sq m. Calculation based on the 2009 Chronic Kidney Disease Epidemiology Collaboration (CKD-EPI). GFR, EST. NONAFRICAN 53(L) >=60 10/23/2024 2:04 PM CDT [facility] Comment: Creatinine Clearance is the [...] Osborne DO CHEMISTRY ORDERABLES Fi nal Result [facility] [address] [place] [address] * US BILATERAL DUPLEX LOWER EXTREMITY VEINS [...] m/sec 0.727 m/sec RESULTING AGENCY AV Peak Densy m/sec 1.11 m/sec RESULTING AGENCY MV Mean [...] CDT Transthoracic Echocardiography Report (TTE) Patient name SHUANA Estrada 1945 Patient ID (UPI) [id number] Indications: NSTEMI, Hypertension and Left Bundle Branch [...] lbs. BMI (BSA) 25.76 kg/m^2 (2.08 m^2) [employer] Sales Consult[employer] [facility] Room 234 Interpreting Gabrielle Jackson Referring Physician Lidya MARIANO Physician Procedure Note Manuel Anthony MD - 09/03/2024 Transthoracic Echocardiography Report (TTE) Patient name SHAUNA Estrada 1945 Patient ID (UPI) [id number] Indications: NSTEMI, Hypertension and Left Bundle Branch [...] lbs. BMI (BSA) 25.76 kg/m^2 (2.08 m^2) [employer] Sales Consultant [facility] Room 234 Interpreting Gabrielle Jackson Referring Physician Lidya MARIANO Physician Barbie Tucker APRN, CNP IMG ECHO ORDERABLES [facility] al Result * (ABNORMAL) TROPONIN I, HIGH SENSITIVITY (HSTRP) (08/31/2024 7:45 PM CDT) Only the most recent of4 resultswithin the time period is included. [facility] TROPONIN I, HIGH SENSITIVITY- [place] 235(H) <=35 ng/L 08/31/2024 8:18 PM CDT [facility] Comment: High-sensitivity troponin I results are reported in ng/L making the result appear to be 1,000 times higher than the contemporary troponin I value which is reported in ng/ml. Results from [place]. Blood Venipuncture / Unknown 08/31/2024 7:45 PM CDT 08/31/2024 7:50 PM CDT Barbie Tucker APRN, CNP CHEMISTRY ORDERABLES Fi nal Result [facility] [address] [place] [address] * Hemoglobin A1C (if indicated) (08/31/2024 5:20 PM CDT) [facility] HGB-A1C 5.7 4.0 - 6.0 % 08/31/2024 6:33 PM CDT [facility] Est Average Glucose 116.9 mg/dL 08/31/2024 6:33 PM CDT [facility] Blood Venipuncture / Unknown 08/31/2024 5:20 PM CDT 08/31/2024 5:31 PM CDT Narrative [facility] - 08/31/2024 6:33 PM CDT HEMOGLOBIN A1C: DIABETIC PATIENTS: WELL-CONTROLLED: 6.2 - 7.0 INTERMEDIATE WELL-CONTROLLED: 7.0 - 9.0 POORLY-CONTROLLED: >9.0 Specimens containing greater than 5% of Hemoglobin F may result in lower than expected % HbA1C results. us Barbie Tucker APRN, LUCIO CHEMISTRY ORDERABLES Fi nal Result [facility] [address] [place] [address] * (ABNORMAL) Complete Blood Count (CBC) WITHOUT Diff - baseline (08/31/2024 5:20 PM CDT) WBC 14.49(H) 4.00 - 12.00 10(3)/mcL 08/31/2024 5:34 PM CDT [facility] RBC 5.15 4.40 - 5.80 10(6)/mcL 08/31/2024 5:34 PM CDT [facility] HEMOGLOBIN (HGB) 16.0 13.0 - 16.5 g/dL 08/31/2024 5:34 PM CDT [facility] HEMATOCRIT (HCT) 48.2 38.0 - 50.0 % 08/31/2024 5:34 PM CDT [facility] MCV 93.6 82.0 - 96.0 fL 08/31/2024 5:34 PM CDT [facility] MCH 31.1 26.0 - 32.0 pg 08/31/2024 5:34 PM CDT [facility] MCHC 33.2 31.0 - 36.0 g/dL 08/31/2024 5:34 PM CDT [facility] PLATELET COUNT 141 140 - 440 10(3)/mcL 08/31/2024 5:34 PM CDT [facility] RDW 13.4 11.8 - 15.5 % 08/31/2024 5:34 PM CDT [facility] MPV 10.2 8.0 - 12.6 fL 08/31/2024 5:34 PM CDT [facility] Blood Venipuncture / Unknown 08/31/2024 5:20 PM CDT 08/31/2024 5:31 PM CDT Vladislav Meek MD HEMATOLOGY ORDERABLES Megan l Result [facility] [address] [place] [address] * Critical Care (08/31/2024 4:56 PM CDT) [...] Carina Saunders D.O. PS: PS Report ID: [id number] Reading Location: [id number] Procedure Note Carina Sanuders DO - 08/31/2024 EXAM DESCRIPTION: XR CHEST [...] Carina Saunders D.O. PS: PS Report ID: [id number] Reading Location: [id number] IMPRESSION: 1. Mild patchy bibasilar airspace opacities, which is likely related to subsegmental atelectasis/scarring and less likely developing airspace disease. 2. Cardiomegaly. Vladislav Meek MD IMG DIAGNOSTIC ORDERABLES Final Result * (ABNORMAL) NT-proBNP (08/31/2024 1:35 PM CDT) NT PROBNP 2,857.1(H) <450.0 pg/mL 08/31/2024 3:02 PM CDT [facility] Comment: AGE pg/mL INTERPRETATION All [...] CHEMISTRY ORDERABLES Final Result Performing Organization Address City/[facility]/ZIP Co de Phone Number [facility] [address] [place] [address] * Blue Top Tube (08/31/2024 1:35 PM CDT) Blood No Phlebotomy Charged / Unknown 08/31/2024 1:35 PM CDT 08/31/2024 2:37 PM CDT Vladislav Meek MD HEMATOLOGY ORDERABLES Megan l Result [facility] [address] [place] [address] * EKG 12 LEAD (08/31/2024 1:23 PM CDT) Only the most recent of2 resultswithin the time period is included. Ventricular Rate 96 BPM EXTERNAL EKG Atrial Rate 96 BPM EXTERNAL EKG P-R Interval 196 ms EXTERNAL EKG QRS Duration 182 ms EXTERNAL EKG Q-T Duration 426 ms EXTERNAL EKG QTC CALCULATION 538 ms EXTERNAL EKG R Mcclure 231 degrees EXTERNAL EKG T Mcclure 39 degrees EXTERNAL EKG 08/31/2024 1:23 PM CDT Impressions EXTERNAL EKG - 09/01/2024 7:24 PM CDT Atrial-sensed ventricular-paced rhythm Abnormal ECG When compared with ECG of 18-AUG-2024 11:29, Vent. rate has increased BY 20 BPM Confirmed by Therese Estrada ([id number]) on 09/01/2024 7:24:25 PM Narrative Procedure Note Therese Estrada MD PhD - 09/01/2024 IMPRESSION: Atrial-sensed ventricular-paced rhythm Abnormal ECG When compared with ECG of 18-AUG-2024 11:29, Vent. rate has increased BY 20 BPM Confirmed by Therese Estrada ([id number]) on 09/01/2024 7:24:25 PM us Vladislav Meek MD IMG ECG ORDERABLES Final R esult Performing Organization Address City/[facility]/ZIP Co de Phone Number EXTERNAL EKG * [...] signed by Pedro WOODSON: KANDICE Report ID: [id number] Reading Location: [id number] Procedure Note Pedro Ozuna MD - 08/18/2024 [...] signed by Pedro WOODSON: KANDICE Report ID: [id number] Reading Location: [id number] IMPRESSION: 1. No acute fracture. 2. Mild [...] by Alok Subramanian M.D. JR: Report ID: [id number] Reading Location: [id number] Procedure Note Alok Subramanian MD - 08/18/2024 [...] by Alok Subramanian M.D. JR: Report ID: [id number] Reading Location: [id number] IMPRESSION: No acute findings. Shree [place] DIAGNOSTIC ORDERABLE S Final Result from Last 3 Months Insurance MEDICARE C [facility] Advance Directives Documents on File Type Date Recorded Patient Party Coordinator Expl anation Power of Engineering Production Liaison for Health Care 10/24/2024 11:52 AM POA-, [...] measures to stabilize the patient. Care Teams Noodle Maker Relationship Specialty Start Date End Date Ralph Holland MD PCP - General Internal Medicine 11/24/15
--- OUTSIDE RECORDS SUMMARY | 2024-11-05 15:03 | XMS_ITS | Encounter Summary ---
Author Organization [facility] Address [address] [place] [address] Care Team Providers Care Air Twister Winder Name Role Phone Ralph Holland MD Primary Care Provider [phone] Encounter Details Date Type Department Care Team (Late st Contact Info) Description 06/08/2019 Lab Requisition [facility] MICROBIOLOGY [address] [place] [address] Dontrell Moreira MD Social History Tobacco Use [...] on filedocumented in this encounter Care Teams Air Twister Winder Relationship Specialty Start Date End Date Ralph Holland MD [address] [place] [id number] PCP - General 04/17/18 documented as of this encounter
--- OUTSIDE RECORDS SUMMARY | 2024-11-05 15:03 | XMS_ITS | Encounter Summary ---
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
--- OUTSIDE RECORDS SUMMARY | 2024-11-05 15:03 | XMS_ITS | Clinical Summary ---
Author Organization [facility] B Address [address] [place] [address] Care Team Providers Care Loan Operations Specialist Name Role Phone Ralph Holland MD Primary Care Provider [phone] Miscellaneous, Not In File Unavailable Unava ilable [...] DAILY 90 tablet 2 11/06/19 25 Active hdrlq-0-bsu-ep a-dpa-fish oil 1,050-1,200 mg capsule 1 capsule [...] biventricular, in situ 08/19/2020 Overview (12/20/2022): Cohn [place] BI-V ICD imp on 08/19/20 for NICM. (Lenard - Salo. Scooter Trujillo. [place] remote. BIO RA Lead Solia [id number] 06/19/19 SJM RV Lead [id number] SJM LV Lead [id number] 08/19/20 Cardiomyopathy 08/19/2020 Chronic systolic congestive heart [...] week. I advised him to follow-up with costume mistress. 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 09/10/2024 3:45 PM CDT Ancillary Procedure [facility] [address] [facility] [address], [place] [address] ICD (implantable cardioverter-defibr illator), biventricular, in situ (Primary Dx); NICM (nonischemic cardiomyopathy) (HCC) 09/10/2024 10:00 AM CDT Office Visit [facility] [address] [place] [address] [address] [place] [phone] Wendy Velázquez NP History of non-ST elevation myocardial infarction (NSTEMI) (Primary Dx); Chronic systolic congestive heart failure (HCC); NICM (nonischemic cardiomyopathy) (HCC); Essential hypertension; Hospital discharge follow-up 08/31/2024 Telephone [facility] [address] [place] [address] [address] [place] [phone] Candelario Trujillo MD 08/06/2024 Orders Only [facility] [address] [place] [address] Scanning, Provider from Last 3 Months [...] on file Legal Sex Male 11:12 AM RAP ARTIST Gender Identity Male 08/06/2020 10:27 AM CDT [...] history exists Medical Devices Implanted Type Area Shoe Laster Device Identifier Shelf Expiration Date Model / Serial / Lot Cohn Vascular [id number] Defib Cardiac [id number] 89u68ih [place] Hf Df4 Is-4 Is-1 Cnctr - [id number] - [id number] Implanted:Qty: 1 on 08/19/2020 by Ildefonso Bridges MD at [facility] ICD Cohn Vascular [id number] 08/13/2022 C [id number] / [id number] / [employer] 7121q/65 Durata Sj4 7fr 65cm 2 Coil True Bipolar Cardioverter - [id number] - [id number] Implanted:Qty: 1 on 08/19/2020 by Ildefonso Bridges MD at [facility] Lead [employer] [id number] 03/16/2021 7121Q/65 / [id number] / [employer] 1458ql/86 Quartet 4.7fr 86cm Quadripolar Is-4 Llll Connector 16 Curve Low - [id number] - [id number] Implanted:Qty: 1 on 08/19/2020 by Ildefonso Bridges MD at [facility] Lead [employer] [id number] 05/15/2023 1458[facility]86 / [id number] / [employer] [id number] Endocardial Pacing Lead Promri Solia T 60 - [id number] Implanted:Qty: 1 on 06/19/2019 by Tanmay Polanco MD at [facility] [employer] 06/18/2020 [id number] 81 / / Bi[employer] Inc [id number] Endocardial Pacing Lead Promri Solia Jt 53 - [id number] Implanted:Qty: 1 on 06/19/2019 by Tanmay Polanco MD at [facility] [employer] 06/18/2020 3951 34 / / Medtronic Inc [id number] Tyrx 3.3x2.9in Large Envelope Absorbable Polyarylate Minocycline - [id number] Implanted:Qty: 1 on 06/19/2019 by Tanmay Polanco MD at [facility] [employer] Inc 12/20/2019 CMRM 6133 / / FilmDoo Jose [id number] Device Closure Angio-Seal Vip Bondek-Plus Polyglyd L70 Cm Od6 Fr Odsec.035 In Vascular - [id number] Implanted:Qty: 1 on 07/31/2020 by Candelario Trujillo MD at [facility] Local Dirt [facility] [id number] / / Explanted Type Area Shoe Laster Device Identifier Shelf Expiration Date Model / Serial / Lot Biotronik Inc [id number] Edora Promri 40k58r9.5mm 1 Chamber Rate Adaptive Unipolar Bipolar - [id number] Implanted:Qty: 1 on 06/19/2019 by Tanmay Polanco MD at [facility] Explanted:Qty: 1 on 08/19/2020 by Ildefonso Bridges MD at [facility] [employer] Inc 06/18/2020 [id number] / / Procedures Procedure Name Priority Date/Time [...] 9.3 seconds. Episodes last 90 days/Comments: AF [place] 0 % No ventricular high rates NORMAL [...] Final Result from Last 3 Months Insurance [facility] MEDICARE ADVANTAGE [facility] MEDICARE ADVANTAGE Advance Directives For more information, please contact: [phone] * Full Code (Latest Code Status on File) Date Activated Date Inactivated Comments 06/15/2022 8:47 AM 06/15/2022 3:47 PM * Full Code Date Activated Date Inactivated Comments 08/19/2020 8:56 PM 08/20/2020 3:19 PM Care Teams Loan Operations Specialist Relationship Specialty Start Date End Date Ralph Holland MD [address] [facility] [place], [place] [id number] PCP - General Internal Medicine 04/14/17 Miscellaneous, Not In File 08/19/20
--- OUTSIDE RECORDS SUMMARY | 2024-11-05 15:03 | XMS_ITS | Encounter Summary ---
Author Organization [facility] Address [address] [place] [address] Phone Care Team Providers Care Budget Consultant Name Role Phone Ralph Holland MD Primary Care Provider [phone] Reason for Visit * Reason Onset Date Comments Advice Only 09/03/2024 Encounter Details Date Type Department Care Team (Late st Contact Info) Description 09/03/2024 Telephone [facility] Call [facility] [address] [place] [phone] Ralph Holland MD [address] [place] [address] Advice Only Social History Tobacco Use [...] week 08/31/2024 How often do you attend [facility] or [facility] services? Never 08/31/2024 Do you belong to any clubs o r organizations such as hinduism groups, unions, fraternal or athletic groups, or [...] and heating? Not hard at all 08/31/2024 [facility] Occup[facility] - Occupational Stress Questionnaire Answer Date [...] any time in the past 12 m [facility], were you homeless or living in a detention (including now)? No 08/31/2024 [facility] Utilities Answer Date Recorded In [...] Pressure - Caller Reports Outcome: Transfer to engine buildup mechanic queue Reason: Sudden decrease within the past 24 hours The caller accepted this outcome. Caller Denied: * Passed out documented in this encounter Plan of Treatment Upcoming Encounters Date Type Department Care Team (Late st Contact Info) Description 12/20/2024 10:30 AM BLEACH BOILER PULLER Office Visit [facility] - [facility] Nose & Throat - [address] [place] [phone] Lina Tang MD [address] [phone] documented as of this encounter Visit Diagnoses Not on filedocumented in this encounter Care Teams Budget Consultant Relationship Specialty Start Date End Date Ralph Holland MD PCP - General Internal Medicine 11/24/15 documented as of this encounter
--- OUTSIDE RECORDS SUMMARY | 2024-11-05 15:03 | XMS_ITS | Clinical Summary ---
Author Organization [facility] Address [address] [place] [address] Care Team Providers Care Motor Grader Operator Name Role Phone Ralph Holland MD Primary Care Provider [phone] Source Comments [facility],non-owned Affiliates and Associated Physician Practices is amultiple site organization consisting of ambulatory clinics and hospital sitesin [place], [place], [place] and [place]. This disclosure is being madepursuant to the Care Everywhere program and may not contain all information available regarding this patient. Last updated 17.[facility] [employer] Social History Tobacco Use Types Packs/Day Years [...] patient's age to complete this topic Insurance [facility] MANAGED MEDICARE ADV Member Subscriber Plan / Payer (Ef fective 2019-Present) Name:Za Villatoro Relation to Subscriber:Self Name:ZA VILLATORO Payer ID:[id number] (NAIC) Type:Medicare-Managed Care Address: [address] MANAGED MEDICARE ADV SELF PAY NO INSURANCE Member Subscriber Plan / Payer (Ef fective for All Dates) Name:Za Villatoro Member ID:Not on file Relation to Subscriber:Not on file Name:ZA VILLATORO Subscriber ID:Not on file (Home) Address: [address] [place] [address] Payer ID:Not on file Group ID:Not on file Type:Self Pay Address: [facility] MANAGED MEDICARE ADV Care Teams Motor Grader Operator Relationship Specialty Start Date End Date Ralph Holland MD [address] [place] [phone] PCP - General 04/17/18
--- OUTSIDE RECORDS SUMMARY | 2024-11-05 15:04 | XMS_ITS | Encounter Summary ---
Author Organization [facility] [employer] [facility] Address [address] [place] [address] Care Team Providers Care Electromechanic Name Role Phone Ralph Holland MD Primary Care Provider + Encounter Details Date Type Department Care Team ([facility] Contact Info) Description 11/01/2024 Orders Only [facility] Oncology and Hematology [facility] [address] [place] [address] Grayson Vazquez MD [facility] [email or web address] [address] [place] [phone] Social History Tobacco Use Types Packs/Day [...] Telephone Check Up [facility] Oncology and Hematology [facility] [address] [place] [address] Grayson Vazquez MD [address] [email or web address] [address] [place] [phone] documented as of this encounter Procedures [...] on filedocumented in this encounter Care Teams Electromechanic Relationship Specialty Start Date End Date Ralph Holland MD [address] [place] [address] PCP - General Internal Medicine 09/01/22 documented as of this encounter
--- OUTSIDE RECORDS SUMMARY | 2024-11-05 15:04 | XMS_ITS | Clinical Summary ---
Author Organization [facility] Indira Benjamin Address [address] [facility] [place] [address] Care Team Providers Care Census Clerk Name Role Phone Ralph Holland MD Primary [...] tablet Take 2 mg by mouth. Active ovrdz-4-ass-epa -dpa-fish oil 1,050-1,200 mg Capsule 1 Capsule. [...] 11/05/2024 11:00 AM CDT Office Visit [facility] Oncology and Hematology [facility] [address] [place] [address] Grayson Vazquez MD Neuroendocrine tumor (CMS/HCC) (Primary Dx) 11/01/[address] [facility] Oncology [facility] [address] [place] [phone] Grayson Vazquez MD 10/30/2024 External Device Data [...] STL ABSTRACTION Provider, Abstract 08/06/[address] [facility] Oncology and Hematology [facility] [address] [place] [phone] Grayson Vazquez MD from Last 3 Months [...] 4:30 PM CDT Telephone Check Up [facility] Oncology and Hematology - [place] [address] [facility] [address] [place] [address] Grayson Vazquez MD [address] [facility] [address] [place] [address] Health Maintenance Due Date Last Done Comments DIABETES ANNUAL FOOT EXAM 1964 DIABETES ANNUAL RETINAL EXAM 1964 DIABETES MICROALBUMIN ANNUAL SCREEN 1964 LDL CHOLESTEROL ANNUAL 1964 DTAP/TDAP/TD VACCINES (1 - Tdap) 1965 ZOSTER VACCINE (1 of 2) 1996 RSV VACCINE (60+ or ) (1 - 1-dose 75+ series) 2021 Medicare Advantage (CT) Preventative Visit/Annual Wellness Visit 02/15/2024 COVID-19 Vaccine [...] Res ult from Last 3 Months Insurance [facility] [id number] Care Teams Census Clerk Relationship Specialty Start Date End Date Ralph Holland MD [address] [place] [phone] PCP - General Internal Medicine 09/01/22
== END 2024-11-05 14:47 | disposition home or self-care (01) ==
PROVIDERS: PCP Internal Medicine; Visit Provider Internal Medicine Hematology & Oncology
DX: D3A.8 Other benign neuroendocrine tumors (principal); N28.1 Cyst of kidney, acquired; I71.43 Infrarenal abdominal aortic aneurysm, without rupture
CPT/HCPCS: 74177; Q9967